=== PATIENT | male | born 1970 | race Two or more races ===

== ENCOUNTER 2016-05-15 14:10 | Emergency (ER) | payer OTHER ==
[2016-05-15] MEDS ORDERED: IBUPROFEN 600 MG TABLET (FP) PO ONE ×2 (14:32→14:34)
--- NOTE | 2016-05-15 14:34 | PDOC ---
History of Present Illness - General History Source: Patient Exam Limitations: No Limitations - History of Present Illness Initial Comments: 05/15/16 14:35 The patient is a 45 year old obese male, with a significant past medical history of HTN, HLD, diabetes, thyroid cancer s/p remission, CAD s/p stent, chronic back pain, and castleman disease, who presents to the emergency department with intermittent cough and chest pain. The patient reports coughing and as a result having pain in his right flank area and left chest area. He reports today while coughing feeling a pop sensation come from his chest. He denies fever, chills, headache and dizziness. He denies any injury or trauma to his chest area. Allergies: NKDA Social History: Nonsmoker. Denies EtOH and drug use. PCP: <Juan Carlos Mazariegos - Last Filed: 05/15/16 17:32> <Abdoulaye Wahl - Last Filed: 05/15/16 17:36> - General Chief Complaint: Pain Stated Complaint: ABDOMINAL PAIN Time Seen by Provider: 05/15/16 14:19 Past History <Juan Carlos Mazariegos - Last Filed: 05/15/16 17:32> - Past Medical History Anemia: No Asthma: No Cancer: Yes (THYROID) Cardiac Disorders: Yes (STENT X1) CVA: No COPD: No CHF: No Dementia: No Diabetes: Yes GI Disorders: Yes (GERD) Disorders: No HTN: Yes Hypercholesterolemia: Yes Liver Disease: No Seizures: No Thyroid Disease: Yes (THYROIDECTOMY) - Surgical History Abdominal Surgery: No Appendectomy: No Cardiac Surgery: Yes (STENT X1) Cholecystectomy: No Lung Surgery: Yes Neurologic Surgery: No Orthopedic Surgery: Yes (LEFT ROTATOR CUFF REPAIR 2002) - Immunization History Immunization Up to Date: Yes - Psycho/Social/Smoking Cessation Hx Anxiety: Yes Suicidal Ideation: No Smoking Status: No Smoking History: Never smoked Have you smoked in the past 12 months: No Number of Cigarettes Smoked Daily: 0 Hx Alcohol Use: No Drug/Substance Use Hx: No Substance Use Type: None Hx Substance Use Treatment: No <Abdoulaye Wahl - Last Filed: 05/15/16 17:36> - Past Medical History Allergies/Adverse Reactions: Allergies Allergy/AdvReac Type Severity Reaction Status Date / Time green pepper Allergy Severe Difficulty Verified 10/21/15 22:41 Breathing No Known Drug Allergies Allergy Unknown Verified 10/21/15 22:29 PEPPER Allergy Uncoded 10/21/15 22:41 Home Medications: Ambulatory Orders Levothyroxine [Synthroid -] 300 mcg PO DAILY 08/21/14 Aspirin [Aspirin EC] 81 mg PO DAILY 12/30/14 Oxycodone HCl/Acetaminophen [Percocet 10-325 mg Tablet] 1 - 2 tab PO Q6H Alprazolam [Xanax] 1 mg PO PRN PRN 09/27/15 Olmesartan Medoxomil [Benicar -] 20 mg PO HS 09/27/15 Oxycodone HCl [Roxicodone -] 10 mg PO Q4H PRN #7 tablet MDD 4 10/23/15 Lidocaine 5% Patch [Lidoderm -] 1 patch TP DAILY PRN 05/15/16 Review of Systems - Review of Systems Able to Perform ROS?: Yes Constitutional: No: Symptoms Reported, Chills, Fever HEENTM: No: Symptoms Reported, Eye Pain, Blurred Vision, Ear Discharge, Throat Pain Respiratory: Yes: Cough Cardiac (ROS): Yes: Chest Pain (Left and right sided) ABD/GI: No: Constipated, Diarrhea, Nausea, Vomiting : No: Dysuria, Frequency, Urgency Musculoskeletal: No: Back Pain, Joint Pain, Joint Swelling, Muscle Pain, Neck Pain Neurological: No: Headache, Numbness, Tingling, Weakness Psychiatric: No: Anxiety, Depression <Juan Carlos Mazariegos - Last Filed: 05/15/16 17:32> *Physical Exam - Vital Signs Last Vital Signs Temp Pulse Resp BP Pulse Ox 98.8 F 102 H 20 131/78 96 05/15/16 14:16 05/15/16 14:16 05/15/16 14:16 05/15/16 14:16 05/15/16 14:16 - Physical Exam General Appearance: Yes: Nourished, Appropriately Dressed HEENT: positive: EOMI, JOLIE, Normal ENT Inspection, Normal Voice, Symmetrical, TMs Normal, Pharynx Normal Neck: positive: Supple. 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 PA and lateral projections of the chest are submitted. The heart size is slightly enlarged. There are surgical clips overlying the left heart border. There is elevation of the left hemidiaphragm with consolidation/ atelectasis within the left lower lobe. The right lung is clear. IMPRESSION: Cardiomegaly and left basilar atelectasis <Juan Carlos Mazariegos - Last Filed: 05/15/16 17:32> Medical Decision Making - Medical Decision Making 05/15/16 17:32 Patient is doing much better after Toradol, will follow up with PCP and discharged home with a chest wall strain. <Juan Carlos Mazariegos - Last Filed: 05/15/16 17:32> *DC/Admit/Observation/Transfer - Attestations Scribe Attestion: 05/15/16 14:37 Documentation prepared by Juan Carlos Mazariegos, acting as medical biller for Abdoulaye Wahl MD. <Juan Carlos Mazariegos - Last Filed: 05/15/16 17:32> - Discharge Dispostion Admit: No <Abdoulaye Wahl - Last Filed: 05/15/16 17:36> Diagnosis at time of Disposition: Rib pain on right side, Rib pain on left side - Discharge Dispostion Disposition: HOME Condition at time of disposition: Improved - Referrals Referrals: Nicolas Reece MD [Primary Care Provider] - - Patient Instructions Printed Discharge Instructions: DI for Rib Contusion
[2016-05-15 14:36] VITALS: TEMP 98.8; BMI 48.7
[2016-05-15 14:41] VITALS: BP 111/60; PULSE 92
[2016-05-15] MEDS ORDERED: KETOROLAC TROMETHAMINE 60 MG/2 ML VIAL ONE (17:29)
[2016-05-15] MEDS ORDERED: KETOROLAC TROMETHAMINE 60 MG/2 ML VIAL IM ONE (17:30)
== END 2016-05-15 18:09 | disposition home or self-care (01) ==
LOC: FER 14:10
PROC: 3E0233Z Introduction of Anti-inflammatory into Muscle, Percutaneous Approach (ICD-10-PCS; principal; 2016-05-15)
DX: R07.81 Pleurodynia (principal); Z85.850 Personal history of malignant neoplasm of thyroid; Z95.5 Presence of coronary angioplasty implant and graft; E11.9 Type 2 diabetes mellitus without complications; E78.00 Pure hypercholesterolemia, unspecified; I10 Essential (primary) hypertension; Z79.82 Long term (current) use of aspirin; E66.9 Obesity, unspecified; Z68.42 Body mass index [BMI] 45.0-49.9, adult
CPT/HCPCS: 71020-TC; 99283-25

== ENCOUNTER 2016-07-25 19:06 | Emergency (ER) | payer OTHER ==
--- NOTE | 2016-07-25 19:15 | PDOC ---
History of Present Illness - History of Present Illness Initial Comments: 07/25/16 20:34 Patient is a 45 year old male who is presenting to the ED with one week of cough and thirty minutes of abdominal pain. The patient reports that hes been coughing for the past week with some sputum production and shortness of breath. His sputum is yellow and occasionally contains specs of blood. The patient states that his cough and shortness of breath worsen with lying down. The patient has to sleep upright at night; he endorses a history of sleep apnea as well. Today when the patient was coughing, he saw his stomach move in a downwards fashion and developed left sided abdominal pain. The patient reports that his pain is constant and severe. He notes experiencing the pain along the right side at times too. However his pain is otherwise non-radiating. Denies any fever , chills, nausea, vomiting, diarrhea, constipation, chest pain, or difficulty urinating. The patient is non compliant with his medications. PAST MEDICAL HISTORY: hypothyroidism, thyroid CA s/p thyroidectomy, CAD s/p stent x1, HTN, HLD PAST SURGICAL HISTORY: thyroidectomy, stent x1, left rotator cuff surgery FAMILY HISTORY: no pertinent history SOCIAL HISTORY: Pt lives with family and is employed. MEDICATIONS: reviewed ALLERGIES: As per nursing notes General: No fevers or chills, no weakness, no weight loss HEENT: No change in vision. No sore throat,. No ear pain CardioVascular: Shortness of breath. No chest pain Respiratory: Productive cough. No wheezing. Gastrointestinal: Abdominal pain. no nausea, vomiting, diarrhea or constipation , No rectal bleeding Genitourinary: No dysuria, hematuria, or frequency Musculoskeletal: No joint or muscle pain or swelling Neurologic: No headache, vertigo, dizziness or loss of consciousness Psychiatric: nor depression Skin: No rashes or easy bruising Endocrine: no increased thirst or abnormal weight change Allergic: no skin or latex allergy All other systems reviewed and normal General: Morbidly obese, in mild distress HEENT: Throat: Normal, tonsils normal, no erythema or exudate Neck: Supple, no meningeal signs, no lymphadenopathy Eyes::Pupils equal reactive and round, extraocular motion intact Chest: Nontender to palpation Cardiac: S1-S2 normal, regular rate and rhythm, no murmurs rubs or gallops Respiratory: Lungs clear to auscultation bilateral Abdomen: Soft, tenderness on palpation left lower rib upper abdominal area, no guarding, no rebound Extremities: Warm, dry, no cyanosis, clubbing, or edema Skin: No rashes Neuro: Alert and oriented x3, nonfocal exam, grossly intact, normal gait Psych: Normal mood and affect <Alma Lozano - Last Filed: 07/25/16 21:38> - General History Source: Patient Exam Limitations: No Limitations - History of Present Illness Initial Comments: 07/25/16 22:15 A portion of this note was documented by scribe services under my direction. I have reviewed the details of the note, within reason, and agree with the documentation. The case summary and management plan written by me. Assessment and plan: This is a 45-year-old male comes in complaining of upper abdominal/left upper quadrant and the left-sided the lower rib pain. Patient said symptoms began after coughing. Patient has multiple medical problems including diabetes and is morbidly obese. Patient had a complete workup including chest x-ray EKG labs that included d-dimer and BNP as well as abdominal x-ray. EKG showed normal sinus rhythm at a rate of 92, no acute ST-T wave changes normal EKG. Chest x-ray showed a large gastric bubble with a markedly elevated left hemidiaphragm secondary to the large gastric bubble. Otherwise no acute pathology. Abdomen showed a nonobstructive bowel gas pattern, and no acute pathology Patient's blood work was unremarkable including a negative troponin, normal BNP , and negative d-dimer. Patient was given some antacids with much improvement in his symptoms and fell asleep and slept comfortably in tell his blood work was back and he was then discharged home. Patient was given instructions to follow-up with his primary care doctor as well as some suggestions as to how to reduce gastric distention and gas. <Will Mae I - Last Filed: 07/25/16 22:19> - General Chief Complaint: Pain Stated Complaint: LUQ PAIN AFTER COUGHING Time Seen by Provider: 07/25/16 19:15 Past History <Alma Lozano - Last Filed: 07/25/16 21:38> - Past Medical History Anemia: No Asthma: No Cancer: Yes (THYROID) Cardiac Disorders: Yes (STENT X1) CVA: No COPD: No CHF: No Dementia: No Diabetes: Yes GI Disorders: Yes (GERD) Disorders: No HTN: Yes Hypercholesterolemia: Yes Liver Disease: No Seizures: No Thyroid Disease: Yes (THYROIDECTOMY) - Surgical History Abdominal Surgery: No Appendectomy: No Cardiac Surgery: Yes (STENT X1) Cholecystectomy: No Lung Surgery: Yes Neurologic Surgery: No Orthopedic Surgery: Yes (LEFT ROTATOR CUFF REPAIR 2002) - Immunization History Immunization Up to Date: Yes - Psycho/Social/Smoking Cessation Hx Anxiety: Yes Suicidal Ideation: No Smoking Status: No Smoking History: Never smoked Have you smoked in the past 12 months: No Number of Cigarettes Smoked Daily: 0 Hx Alcohol Use: No Drug/Substance Use Hx: No Substance Use Type: None Hx Substance Use Treatment: No <Will Mae I - Last Filed: 07/25/16 22:19> - Past Medical History Allergies/Adverse Reactions: Allergies Allergy/AdvReac Type Severity Reaction Status Date / Time green pepper Allergy Severe Difficulty Verified 07/25/16 19:25 Breathing No Known Drug Allergies Allergy Unknown Verified 07/25/16 19:25 PEPPER Allergy Uncoded 07/25/16 19:25 Home Medications: Ambulatory Orders Levothyroxine [Synthroid -] 300 mcg PO DAILY 08/21/14 Aspirin [Aspirin EC] 81 mg PO DAILY 12/30/14 Alprazolam [Xanax] 1 mg PO PRN PRN 09/27/15 Olmesartan Medoxomil [Benicar -] 20 mg PO HS 09/27/15 Sitagliptin Phosphate [Januvia] 100 mg PO DAILY 07/25/16 *Physical Exam - Vital Signs Last Vital Signs Temp Pulse Resp BP Pulse Ox 99.8 F H 103 H 20 143/84 94 L 07/25/16 19:08 07/25/16 19:08 07/25/16 19:08 07/25/16 19:08 07/25/16 19:08 <Alma Lozano - Last Filed: 07/25/16 21:38> ED Treatment Course - LABORATORY CBC & Chemistry Diagram: 07/25/16 20:10 07/25/16 20:10 - ADDITIONAL ORDERS Additional order review: 07/25/16 20:10 RBC 4.95 MCV 83.3 MCHC 33.8 RDW 14.4 MPV 9.3 Neutrophils % 63.1 Lymphocytes % 22.8 Monocytes % 7.6 Eosinophils % 3.3 Basophils % 3.2 H - RADIOLOGY Radiograph Interpretation: 07/25/16 21:38 Abdomen X-Ray Impression: Suboptimal examination due to the patient's body habitus. Nonobstructive bowel gas pattern. Chest X-Ray Impression: Mild atelectatic changes in the left lung base and persistent prominence of the left hilum Reported By: Batr Manning MD <Alma Lozano - Last Filed: 07/25/16 21:38> - LABORATORY CBC & Chemistry Diagram: 07/25/16 20:10 07/25/16 20:10 <Will Mae I - Last Filed: 07/25/16 22:19> *DC/Admit/Observation/Transfer - Attestations Scribe Attestion: 07/25/16 20:39 Documentation prepared by Alma Lozano, acting as medical insurance collector for Will Mae MD. <Alma Lozano - Last Filed: 07/25/16 21:38> - Discharge Dispostion Admit: No <Will Mae I - Last Filed: 07/25/16 22:19> Diagnosis at time of Disposition: Stomach discomfort - Discharge Dispostion Disposition: HOME Condition at time of disposition: Good - Referrals Referrals: Nicolas Reece MD [Primary Care Provider] - - Patient Instructions Additional Instructions: Return to the emergency department immediately with ANY new, persistent or worsening symptoms. Continue any medications as previously prescribed by your physician. You should follow up with your primary doctor as soon as possible regarding today's emergency department visit. . Please make sure your doctor reviews the results of your emergency evaluation. Thank you for coming to the Emergency Department today for your care. It was a pleasure to see you today. Please note that your evaluation is INCOMPLETE until you follow-up with your doctor. Here are six steps you can take to cut down on painful gas: Drink before meals. If you drink liquids with your meals, you lose stomach acids and cant break down food as well, Alexis says. Try drinking about 30 minutes before a meal to help your stomach digest better. Eat and drink slowly. When you eat or drink fast, you can swallow a lot of air, which can cause gas. The simple solution? Slow down when you eat. If you have dentures, check with your dentist to be sure they fit properly so youre not gasping air while eating. Take [id number] digestive aids. Digestive enzymes are available as over- the-counter supplements. Go to the [employer] store and getting a digestive enzyme, You can take one or two. You will know very rapidly within a few weeks if it makes a difference. However, antacids wont do much for excessive gas. Another gvof-yyh-uahzyfb digestive aid, Beano, contains an enzyme that can allow the body to digest the sugar in beans and many vegetables. Add five drops of the liquid form or swallow one Beano tablet per half-cup serving of food before eating. Heating degrades the enzyme in Beano, so adding it to foods while cooking reduces its effectiveness. Beano will not help if excessive gas is caused by fiber or lactose. Try activated charcoal. Activated charcoal has been known to reduce and treat excess gas and bloating. Unlike the charcoal you find in your grill or fireplace , activated charcoal undergoes a special treatment that makes it safe for human consumption. Once you take activated charcoal (via liquid or pill), it attaches to fluid in your gut, reducing gas and bloating and creating firmer stools. Don't fill up on air. Habits like smoking, chewing gum, and drinking through a straw may cause your stomach to fill with air, leading to gas. Avoid artificial sweeteners. Sorbitol and related sugar alcohols used in many sugar-free versions of foods can also aggravate gas. Sorbitol is the first ingredient in every brand of sugar-free gum Lillian found at local grocery stores, says Alli. One to two sticks is rashi to eating a prune. However, the sugar substitutes that are found at a typical coffee stand or in popular soft drinks are not the kind that cause gas. The various packet sweeteners yellow ( sucralose), pink (saccharine), and blue (aspartame) are not associated with gas or laxative effects.
[2016-07-25 19:24] VITALS: BP 143/84; PULSE 103; TEMP 99.8; BMI 49.0
[2016-07-25 20:24] LABS: BASOPHIL 3.2 % (0-2.0); EOSINOPHIL 3.3 % (0-4.5); MCH 28.2 pg (25.7-33.7); MCHC 33.8 g/dl (32.0-35.9); MEAN CELL VOLUME 83.3 fl (80-96); MEAN PLT VOLUME 9.3 fl (7.5-11.1); NEUTROPHILS 63.1 % (42.8-82.8); PLATELET COUNT 204 K/MM3 (134-434); RDW 14.4 % (11.9-15.9); WHITE BLOOD COUNT 8.1 K/mm3 (4.0-10.0)
[2016-07-25] MEDS ORDERED: KETOROLAC TROMETHAMINE 30 MG/1 ML VIAL IVPUSH ONE (20:33)
[2016-07-25] MEDS ORDERED: MAG HYDROX/AL HYDROX/SIMETH 355 ML ORAL.SUSP PO ONE (20:34)
[2016-07-25] MEDS ORDERED: FAMOTIDINE 20 MG/50 ML IVPB 50 ML IVPB ONE ×2 (20:34→20:49)
[2016-07-25 20:35] LABS: ALBUMIN 3.6 g/dl (3.5-5.0); ALK PHOS 50 U/L (32-92); ANION GAP 6 (8-16); CALCIUM 8.8 mg/dl (8.4-10.2); CO2 28 mmol/L (22-28); COCKROFT - GAULT 227; CREATININE 0.9 mg/dl (0.6-1.3); GLUCOSE,RANDOM 182 mg/dl (74-106); SGOT/AST 44 U/L (10-42); SGPT/ALT 23 U/L (10-40); TOT PROT 7.1 g/dl (6.4-8.3)
[2016-07-25 20:42] LABS: CPK(DFH) 193 IU/L (38-174)
[2016-07-25] MEDS ORDERED: MAG HYDROX/AL HYDROX/SIMETH 30 ML UNIT-DOSE CUP ONE (20:49)
[2016-07-25] MEDS ORDERED: KETOROLAC TROMETHAMINE 30 MG/1 ML VIAL ONE (20:49)
[2016-07-25 20:51] LABS: TROPONIN I (DFP) < 0.03 ng/ml (0.03-0.50)
[2016-07-25 20:53] LABS: CK MB 3.6 ng/ml (0.3-4.0)
--- NOTE | 2016-07-28 09:10 | EKG ---
Test Reason : Blood Pressure : / mmHG Vent. Rate : 092 BPM Atrial Rate : 092 BPM P-R Int : 164 ms QRS Dur : 096 ms QT Int : 378 ms P-R-T Axes : 041 002 034 degrees QTc Int : 467 ms NORMAL SINUS RHYTHM NORMAL ECG WHEN COMPARED WITH ECG OF 22-OCT-2015 03:45, NO SIGNIFICANT CHANGE WAS FOUND Confirmed by ONUR COYNE MD ([id number]) on 07/28/2016 9:10:05 AM Referred By: Cedric CHAVIRA Confirmed By:ONUR COYNE MD
== END 2016-07-26 00:23 | disposition home or self-care (01) ==
LOC: FER 19:06
PROC: 3E033GC Introduction of Other Therapeutic Substance into Peripheral Vein, Percutaneous Approach (ICD-10-PCS; principal; 2016-07-25)
PROC: 3E0333Z Introduction of Anti-inflammatory into Peripheral Vein, Percutaneous Approach (ICD-10-PCS; 2016-07-25)
DX: R10.9 Unspecified abdominal pain (principal); E03.9 Hypothyroidism, unspecified; Z85.850 Personal history of malignant neoplasm of thyroid; Z95.5 Presence of coronary angioplasty implant and graft; I10 Essential (primary) hypertension; E78.5 Hyperlipidemia, unspecified; I25.10 Atherosclerotic heart disease of native coronary artery without angina pectoris
CPT/HCPCS: 36415; 71020-TC; 74020-TC; 80053; 82550; 82553; 83880; 84484; 85025; 85379; 93005; 96365; 96375; 99285-25

== ENCOUNTER 2016-09-02 08:36 | Emergency (ER) | payer OTHER ==
[2016-09-02 08:44] VITALS: BP 121/79; PULSE 94; TEMP 98.7; BMI 48.1
[2016-09-02] MEDS ORDERED: ACETAMINOPHEN 325 MG TABLET (FP) PO ONE (08:49)
[2016-09-02] MEDS ORDERED: SODIUM CHLORIDE 1,000 ML IV STA (08:49)
[2016-09-02] MEDS ORDERED: MAG HYDROX/AL HYDROX/SIMETH 30 ML UNIT-DOSE CUP PO ONE (08:49)
[2016-09-02] MEDS ORDERED: FAMOTIDINE 20 MG/50 ML IVPB 50 ML IVPB ONE ×2 (08:49→09:01)
[2016-09-02] MEDS ORDERED: ACETAMINOPHEN 325 MG TABLET (FP) ONE (09:01)
[2016-09-02] MEDS ORDERED: MAG HYDROX/AL HYDROX/SIMETH 30 ML UNIT-DOSE CUP ONE (09:01)
[2016-09-02 09:06] LABS: URINE APPEARANCE Clear; URINE BILIRUBIN Negative (NEGATIVE); URINE GLUCOSE (UA) Negative (NEGATIVE); URINE KETONE Negative (NEGATIVE); URINE LEUK ESTERASE Trace (NEGATIVE); URINE NITRITE Negative (NEGATIVE); URINE PROTEIN Negative (NEGATIVE); URINE UROBILINOGEN 0.2 E.U/dl (0.2-1.0)
[2016-09-02 09:16] LABS: URINE BLOOD 1+ (NEGATIVE); URINE COLOR YELLOW
--- NOTE | 2016-09-02 09:17 | PDOC ---
History of Present Illness - General Chief Complaint: Pain, Acute Stated Complaint: abd pain Time Seen by Provider: 09/02/16 08:39 History Source: Patient, Old Records Exam Limitations: No Limitations - History of Present Illness Initial Comments: 09/02/16 09:16 45 year old male with past medical history of hypothyroidism, thyroid cancer status post thyroidectomy, coronary disease status post stents, hypertension, hyperlipidemia, noncompliance with medications presents with right-sided abdominal pain. Patient reports that he woke up in his usual state and well. Patient reports that he was stretching out his abdomen when he felt the sudden onset of right-sided abdominal pain. No associated nausea, vomiting, diarrhea, fevers. Patient states that this had occurred several times in the last several months. He is here several months ago for similar incident and was found to have any gastric air bubble. Patient has not follow-up with her doctor regarding these abdominal complaints. Past History - Past Medical History Allergies/Adverse Reactions: Allergies Allergy/AdvReac Type Severity Reaction Status Date / Time green pepper Allergy Severe Difficulty Verified 09/02/16 08:38 Breathing No Known Drug Allergies Allergy Unknown Verified 09/02/16 08:38 PEPPER Allergy Uncoded 07/25/16 19:25 Home Medications: Ambulatory Orders Levothyroxine [Synthroid -] 300 mcg PO DAILY 08/21/14 Aspirin [Aspirin EC] 81 mg PO DAILY 12/30/14 Alprazolam [Xanax] 1 mg PO PRN PRN 09/27/15 Olmesartan Medoxomil [Benicar -] 20 mg PO HS 09/27/15 Sitagliptin Phosphate [Januvia] 100 mg PO DAILY 07/25/16 Ciprofloxacin [Cipro -] 500 mg PO Q12H #14 tablet 09/02/16 Clotrimazole/Betamethasone Dip [Clotrimazole-Betamethasone Lot] 30 ml TP BID #1 lotion 09/02/16 Famotidine [Pepcid] 20 mg PO BID PRN #14 tablet 09/02/16 Mag Hydrox/Al Hydrox/Simeth [Mylanta Suspension -] 30 ml PO Q6H PRN #1 bottle Anemia: No Asthma: No Cancer: Yes (THYROID) Cardiac Disorders: Yes (STENT X1) CVA: No COPD: No CHF: No Dementia: No Diabetes: Yes GI Disorders: Yes (GERD) Disorders: No HTN: Yes Hypercholesterolemia: Yes Liver Disease: No Seizures: No Thyroid Disease: Yes (THYROIDECTOMY) - Surgical History Abdominal Surgery: No Appendectomy: No Cardiac Surgery: Yes (STENT X1) Cholecystectomy: No Lung Surgery: Yes Neurologic Surgery: No Orthopedic Surgery: Yes (LEFT ROTATOR CUFF REPAIR 2002) - Immunization History Immunization Up to Date: Yes - Psycho/Social/Smoking Cessation Hx Anxiety: Yes Suicidal Ideation: No Smoking Status: No Smoking History: Never smoked Have you smoked in the past 12 months: No Number of Cigarettes Smoked Daily: 0 Hx Alcohol Use: No Drug/Substance Use Hx: No Substance Use Type: None Hx Substance Use Treatment: No Review of Systems - Review of Systems Able to Perform ROS?: Yes Comments:: 09/02/16 09:16 GENERAL/CONSTITUTIONAL: No fever, weakness. HEAD, EYES, EARS, NOSE AND THROAT: No change in vision. No ear pain or discharge. No sore throat. CARDIOVASCULAR: No chest pain or shortness of breath. RESPIRATORY: No cough, wheezing, or hemoptysis. GASTROINTESTINAL: +abdominal pain. No nausea, vomiting, diarrhea, or decreased PO intolerance. GENITOURINARY: No dysuria, frequency, or change in urination. MUSCULOSKELETAL: No joint or muscle swelling or pain. No neck or back pain. SKIN: No rash NEUROLOGIC: No headache, vertigo, loss of consciousness, or change in strength/ sensation. ENDOCRINE: No increased thirst. No abnormal weight change. HEMATOLOGIC/LYMPHATIC: No anemia, easy bleeding, or history of blood clots. ALLERGIC/IMMUNOLOGIC: No hives or skin allergy. *Physical Exam - Vital Signs Last Vital Signs Temp Pulse Resp BP Pulse Ox 98.7 F 94 H 18 121/79 95 09/02/16 08:37 09/02/16 08:37 09/02/16 08:37 09/02/16 08:37 09/02/16 08:37 - Physical Exam Comments: 09/02/16 09:16 GENERAL: Awake, alert, and fully oriented, in no acute distress. Obese. HEAD: No signs of trauma EYES: PERRLA, EOMI, sclera anicteric, conjunctiva clear ENT: Auricles normal inspection, hearing grossly normal, nares patent, oropharynx clear without exudates. NECK: Normal ROM, supple, no lymphadenopathy, JVD, or masses LUNGS: Breath sounds equal, clear to auscultation bilaterally. No wheezes, and no crackles HEART: Regular rate and rhythm, normal S1 and S2, no murmurs, rubs or gallops ABDOMEN: Negative chavez. Negative mcburney's. TTP mid right abdomen to palpation. Soft, normoactive bowel sounds. No guarding, no rebound. No masses EXTREMITIES: Normal range of motion, no edema. No clubbing or cyanosis. No cords, erythema, or tenderness NEUROLOGICAL: Cranial nerves II through XII grossly intact. Normal speech, normal gait SKIN: Warm, Dry, normal turgor, no rashes or lesions noted. Heart Score/ECG Review #1 ECG reviewed & interpreted by me at: 09:20 09/02/16 09:32 NSR 85, no std/kj, normal axis, normal intervals, QTC 459 msec ED Treatment Course - LABORATORY CBC & Chemistry Diagram: 09/02/16 09:06 09/02/16 09:06 - RADIOLOGY Radiology Studies Ordered: Category Date Time Status ABDOMEN & PELVIS CT WITH CONTR [CT] Stat CT Scan 09/02/16 08:49 Ordered - Medications Given in the ED: ED Medications Discontinued Medications Generic Name Dose Route Start Last Admin Trade Name Freq PRN Reason Stop Dose Admin Acetaminophen 650 mg 09/02/16 08:49 09/02/16 09:12 Tylenol - PO 09/02/16 08:50 650 mg ONCE ONE Administration Al Hydroxide/Mg Hydroxide 30 ml 09/02/16 08:49 09/02/16 09:12 Mylanta Oral Suspension - PO 09/02/16 08:50 30 ml ONCE ONE Administration Medical Decision Making - Medical Decision Making 09/02/16 09:16 Vital Signs Temp Pulse Resp BP Pulse Ox 98.7 F 94 H 18 121/79 95 09/02/16 08:37 09/02/16 08:37 09/02/16 08:37 09/02/16 08:37 09/02/16 08:37 Differential includes gastric bubble, hiatal hernia, abdominal hernia, versus less likely appendicitis. We'll obtain labs, CAT scan the abdomen pelvis and trial GERD medications reassess. 09/02/16 11:27 CAT scan demonstrates stable exam without gross interval changes. Hepatosplenomegaly with fatty infiltration of liver. Prominent primary pancreatic lymph nodes again with no gross interval changes. CBC, BMP 09/02/16 09:06 09/02/16 09:06 CMP Sodium 134 mmol/L (136-145) L 09/02/16 09:06 Potassium 4.0 mmol/L (3.5-5.1) 09/02/16 09:06 Chloride 94 mmol/L (98-107) L 09/02/16 09:06 Carbon Dioxide 29 mmol/L (22-28) H 09/02/16 09:06 Anion Gap 11 (8-16) 09/02/16 09:06 BUN 16 mg/dl (7-18) 09/02/16 09:06 Creatinine 1.0 mg/dl (0.6-1.3) 09/02/16 09:06 Creat Clearance w eGFR > 60 (>60) 09/02/16 09:06 Random Glucose 264 mg/dl (74-106) H D 09/02/16 09:06 Calcium 9.1 mg/dl (8.4-10.2) 09/02/16 09:06 Total Bilirubin 0.6 mg/dl (0.2-1.0) D 09/02/16 09:06 AST 26 U/L (10-42) D 09/02/16 09:06 ALT 27 U/L (10-40) 09/02/16 09:06 Alkaline Phosphatase 61 U/L (32-92) D 09/02/16 09:06 Creatine Kinase 130 IU/L (38-174) 09/02/16 09:06 Troponin I < 0.03 ng/ml (0.03-0.50) L 09/02/16 09:06 Total Protein 7.5 g/dl (6.4-8.3) 09/02/16 09:06 Albumin 4.0 g/dl (3.5-5.0) 09/02/16 09:06 Lipase 27 U/L (22-51) 09/02/16 09:06 Urine Test Results Urine Color Yellow 09/02/16 09:00 Urine Appearance Clear 09/02/16 09:00 Urine pH 5.0 (4.5-8) D 09/02/16 09:00 Ur Specific [place] 1.020 (1.005-1.025) 09/02/16 09:00 Urine Protein Negative (NEGATIVE) 09/02/16 09:00 Urine Glucose (UA) Negative (NEGATIVE) 09/02/16 09:00 Urine Ketones Negative (NEGATIVE) 09/02/16 09:00 Urine Blood 1+ (NEGATIVE) H 09/02/16 09:00 Urine Nitrite Negative (NEGATIVE) 09/02/16 09:00 Urine Bilirubin Negative (NEGATIVE) 09/02/16 09:00 Ur Leukocyte Esterase Trace (NEGATIVE) 09/02/16 09:00 Urine RBC 3-5 /hpf (0-3) 09/02/16 09:00 Urine WBC 10-20 (3-5) 09/02/16 09:00 Ur Epithelial Cells 2+ /HPF 09/02/16 09:00 Urine Bacteria 1+ /hpf (NEGATIVE) 09/02/16 09:00 The patient has been having intermittent recurrence of abdominal pain over several months which is now relieved by Mylanta and Pepcid. It is possible this is likely gastritis despite the fact this is right mid abdominal pain. We'll give her prescription of those 2 medications. The CAT scan demonstrates prominent lymph nodes which he reports the patient and the patient's doctor is aware of. I had given a copy of the results to the patient. Urine demonstrates 10-20 to BCs and trace leuk esterase and 1+ bacteria. We'll also prescribe ciprofloxacin and have the patient follow up with his doctor. Patient also notes to me that he has a small tinea-like rash along the right side of neck. We 'll prescribe an antifungal and steroid ointment and have the patient follow with his doctor. Patient verbalizes understanding and agrees with plan. I discussed the physical exam findings, ancillary test results and final diagnoses with the patient. I answered all of the patient's questions. The patient was satisfied with the care received and felt comfortable with the discharge plan and treatment plan. The patient will call their primary care physician within 24 hours to arrange follow-up and will return to the Emergency Department with any new, persistant or worsening symptoms. *DC/Admit/Observation/Transfer Diagnosis at time of Disposition: Gastritis Qualifiers: Gastritis type: unspecified gastritis Chronicity: acute Gastritis bleeding: without bleeding Qualified Code(s): K29.00 - Acute gastritis without bleeding UTI (urinary tract infection) Qualifiers: Urinary tract infection type: site unspecified Hematuria presence: without hematuria Qualified Code(s): N39.0 - Urinary tract infection, site not specified - Discharge Dispostion Disposition: HOME Condition at time of disposition: Improved Admit: No - Prescriptions Prescriptions: Ciprofloxacin [Cipro -] 500 mg PO Q12H #14 tablet Clotrimazole/Betamethasone Dip [Clotrimazole-Betamethasone Lot] 30 ml TP BID #1 lotion Mag Hydrox/Al Hydrox/Simeth [Mylanta Suspension -] 30 ml PO Q6H PRN #1 bottle PRN Reason: Abdominal Pain Famotidine [Pepcid] 20 mg PO BID PRN #14 tablet PRN Reason: GERD - Referrals Referrals: Nicolas Reece MD [Primary Care Provider] - Gómez Solis MD [Staff Physician] - Sly Ward MD [Staff Physician] - - Patient Instructions Printed Discharge Instructions: DI for Gastritis, DI for Urinary Tract Infection (UTI), DI for Rash Additional Instructions: Please take the medications as prescribed. Please complete them. Your urine demonstrated a urinary tract infection. Also, CAT scan also shows again an enlarged spleen and liver and lymph nodes that has been there since 2015. It is important that you bring a copy of the CAT scan results to and to touch base with him. Please also apply the ointment to your rash every 12 hours for 1 week and follow up with your doctor. If you are having recurrence of this abdominal pain, please make an appointment with an recording clerk.
[2016-09-02 09:28] LABS: BASOPHIL 2.7 % (0-2.0); EOSINOPHIL 1.3 % (0-4.5); MCH 28.6 pg (25.7-33.7); MCHC 34.4 g/dl (32.0-35.9); MEAN CELL VOLUME 83.1 fl (80-96); MEAN PLT VOLUME 9.7 fl (7.5-11.1); NEUTROPHILS 79.6 % (42.8-82.8); PLATELET COUNT 236 K/MM3 (134-434); RDW 14.8 % (11.9-15.9); WHITE BLOOD COUNT 10.5 K/mm3 (4.0-10.8)
[2016-09-02 09:32] LABS: URINE BACTERIA 1+ /hpf (NEGATIVE)
[2016-09-02 09:47] LABS: ALK PHOS 61 U/L (32-92); ANION GAP 11 (8-16); BILIRUBIN,TOTAL 0.6 mg/dl (0.2-1.0); CALCIUM 9.1 mg/dl (8.4-10.2); CO2 29 mmol/L (22-28); GLUCOSE,RANDOM 264 mg/dl (74-106); SGOT/AST 26 U/L (10-42); SGPT/ALT 27 U/L (10-40); TOT PROT 7.5 g/dl (6.4-8.3)
[2016-09-02 09:49] LABS: COCKROFT - GAULT NT
[2016-09-02] MEDS ORDERED: CIPROFLOXACIN 500 MG TABLET (RESTRICTED TO ID) PO ONE (11:26)
[2016-09-02] MEDS ORDERED: CIPROFLOXACIN 250 MG TABLET (RESTRICTED TO ID) PO ONE (11:30)
[2016-09-02 14:51] LABS: CPK(DFH) 130 IU/L (38-174); TROPONIN I (DFP) < 0.03 ng/ml (0.03-0.50)
--- NOTE | 2016-09-02 17:15 | EKG ---
Test Reason : Blood Pressure : / mmHG Vent. Rate : 085 BPM Atrial Rate : 085 BPM P-R Int : 128 ms QRS Dur : 086 ms QT Int : 386 ms P-R-T Axes : 013 -04 058 degrees QTc Int : 459 ms NORMAL SINUS RHYTHM NORMAL ECG WHEN COMPARED WITH ECG OF 25-JUL-2016 19:47, NO SIGNIFICANT CHANGE WAS FOUND Confirmed by MEGHANA HAMPTON MD ([id number]) on 09/02/2016 5:15:27 PM Referred By: MARY CALHOUN Confirmed By:MEGHANA HAMPTON MD
== END 2016-09-02 11:38 | disposition home or self-care (01) ==
LOC: FER 08:36
PROC: 3E033GC Introduction of Other Therapeutic Substance into Peripheral Vein, Percutaneous Approach (ICD-10-PCS; principal; 2016-09-02)
PROC: 3E0337Z Introduction of Electrolytic and Water Balance Substance into Peripheral Vein, Percutaneous Approach (ICD-10-PCS; 2016-09-02)
DX: K29.00 Acute gastritis without bleeding (principal); N39.0 Urinary tract infection, site not specified; E03.9 Hypothyroidism, unspecified; E78.5 Hyperlipidemia, unspecified; Z95.5 Presence of coronary angioplasty implant and graft; K21.9 Gastro-esophageal reflux disease without esophagitis
CPT/HCPCS: 36415; 74177-TC; 80053; 81003; 81015; 82550; 83690; 84484; 85025; 87086; 87186; 93005; 96361; 96365; 99283-25

== ENCOUNTER 2016-11-17 13:53 | Emergency (ER) | payer OTHER ==
[2016-11-17 14:07] VITALS: BP 109/69; PULSE 81; TEMP 98.2; BMI 48.1
--- NOTE | 2016-11-17 14:35 | PDOC ---
History of Present Illness - General Chief Complaint: Pain Stated Complaint: COUGHED NOW HAVE ABD PAIN Time Seen by Provider: 11/17/16 14:34 History Source: Patient Exam Limitations: No Limitations - History of Present Illness Initial Comments: 11/17/16 14:50 45 yo male presents with abdominal pain since this morning. Patient past medical history of hypothyroidism, thyroid cancer status post thyroidectomy, coronary disease status post stents, hypertension, hyperlipidemia, noncompliance with medications. He states that he coughed this morning when all of a sudden he felt pain in his right lower abdomen. Patient states that he feels as if his "stomach dropped". He reports that movements hurts and staying still makes it better. He did not take any medication for his pain. Patient denies any fever , chills, chest pain, SOB, n/v/d Past History - Past Medical History Allergies/Adverse Reactions: Allergies Allergy/AdvReac Type Severity Reaction Status Date / Time green pepper Allergy Severe Difficulty Verified 11/17/16 13:55 Breathing No Known Drug Allergies Allergy Unknown Verified 11/17/16 13:55 PEPPER Allergy Uncoded 11/17/16 13:55 Home Medications: Ambulatory Orders Levothyroxine [Synthroid -] 300 mcg PO DAILY 08/21/14 Aspirin [Aspirin EC] 81 mg PO DAILY 12/30/14 Alprazolam [Xanax] 1 mg PO PRN PRN 09/27/15 Olmesartan Medoxomil [Benicar -] 20 mg PO HS 09/27/15 Sitagliptin Phosphate [Januvia] 100 mg PO DAILY 07/25/16 Clotrimazole/Betamethasone Dip [Clotrimazole-Betamethasone Lot] 30 ml TP BID #1 lotion 09/02/16 Famotidine [Pepcid] 20 mg PO BID PRN #14 tablet 09/02/16 Mag Hydrox/Al Hydrox/Simeth [Mylanta Suspension -] 30 ml PO Q6H PRN #1 bottle Oxycodone HCl/Acetaminophen [Percocet 10-325 mg Tablet] 1 each PO PRN PRN Tramadol HCl 50 mg PO PRN PRN 11/17/16 Anemia: No Asthma: No Cancer: Yes (THYROID) Cardiac Disorders: Yes (STENT X1) CVA: No COPD: No CHF: No Dementia: No Diabetes: Yes GI Disorders: Yes (GERD) Disorders: No HTN: Yes Hypercholesterolemia: Yes Liver Disease: No Seizures: No Thyroid Disease: Yes (THYROIDECTOMY) - Surgical History Abdominal Surgery: No Appendectomy: No Cardiac Surgery: Yes (STENT X1) Cholecystectomy: No Lung Surgery: Yes Neurologic Surgery: No Orthopedic Surgery: Yes (LEFT ROTATOR CUFF REPAIR 2002) - Immunization History Immunization Up to Date: Yes - Psycho/Social/Smoking Cessation Hx Anxiety: Yes Suicidal Ideation: No Smoking Status: No Smoking History: Never smoked Have you smoked in the past 12 months: No Number of Cigarettes Smoked Daily: 0 Information on smoking cessation initiated: No Hx Alcohol Use: No Drug/Substance Use Hx: No Substance Use Type: None Hx Substance Use Treatment: No Review of Systems - Review of Systems Constitutional: No: Chills, Fever HEENTM: No: Blurred Vision, Double Vision Respiratory: No: Cough, Shortness of Breath ABD/GI: Yes: Abdominal cramping Musculoskeletal: No: Back Pain, Muscle Weakness Integumentary: No: Bruising Neurological: No: Headache Psychiatric: No: Depression All Other Systems: Reviewed and Negative *Physical Exam - Vital Signs Last Vital Signs Temp Pulse Resp BP Pulse Ox 98.2 F 81 20 109/69 94 L 11/17/16 13:55 11/17/16 13:55 11/17/16 13:55 11/17/16 13:55 11/17/16 13:55 - Physical Exam General Appearance: Yes: Nourished, Appropriately Dressed HEENT: positive: EOMI, JOLIE, Normal ENT Inspection Neck: positive: Trachea midline, Supple Respiratory/Chest: positive: Lungs Clear, Normal Breath Sounds. negative: Crackles, Rales, Rhonchi, Stridor, Wheezing Cardiovascular: positive: Regular Rhythm, Regular Rate Gastrointestinal/Abdominal: positive: Normal Bowel Sounds, Other. 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 NML intact, Fully Oriented, Alert, Normal Response, Motor Strength 5/5 Medical Decision Making - Medical Decision Making 11/17/16 15:02 45 yo M with abdominal pain since this AM Patient with similar complaints in the past with unremarkable to CT findings IV Tordol and Bentyl for pain Reasses *DC/Admit/Observation/Transfer Diagnosis at time of Disposition: Abdominal pain in male, Obesity - Discharge Dispostion Disposition: HOME Condition at time of disposition: Good Admit: No - Patient Instructions Printed Discharge Instructions: DI for Cough -- Adult, DI for Abdominal Pain- Adult Additional Instructions: [place]- Your exam does not indicate a hernia. I believe you just strained your abdominal muscles while you were coughing. You should consider trying to lose a few pounds as this weight is really not good for your overall health or wellbeing. Talk with your doctor about what you can do. Return to us if any problems. Best- Dr. Boaz Emerson
[2016-11-17] MEDS ORDERED: KETOROLAC TROMETHAMINE 60 MG/2 ML VIAL IM ONE (15:08)
[2016-11-17] MEDS ORDERED: DICYCLOMINE HCL 20 MG/2 ML AMPUL IM ONE (15:08)
[2016-11-17] MEDS ORDERED: DICYCLOMINE HCL 10 MG CAPSULE ONE (15:27)
[2016-11-17] MEDS ORDERED: KETOROLAC TROMETHAMINE 60 MG/2 ML VIAL ONE (15:27)
== END 2016-11-17 15:49 | disposition home or self-care (01) ==
LOC: FER 13:53
PROC: 3E0133Z Introduction of Anti-inflammatory into Subcutaneous Tissue, Percutaneous Approach (ICD-10-PCS; principal; 2016-11-17)
PROC: 3E013GC Introduction of Other Therapeutic Substance into Subcutaneous Tissue, Percutaneous Approach (ICD-10-PCS; 2016-11-17)
DX: R10.9 Unspecified abdominal pain (principal); E89.0 Postprocedural hypothyroidism; Z85.850 Personal history of malignant neoplasm of thyroid; Z79.82 Long term (current) use of aspirin; I10 Essential (primary) hypertension; I25.10 Atherosclerotic heart disease of native coronary artery without angina pectoris; Z95.5 Presence of coronary angioplasty implant and graft; E78.5 Hyperlipidemia, unspecified; Z91.14 Patient's other noncompliance with medication regimen; Z91.018 Allergy to other foods; E66.9 Obesity, unspecified; Z68.42 Body mass index [BMI] 45.0-49.9, adult
CPT/HCPCS: 96372; 99283-25

== ENCOUNTER 2017-01-23 01:02 | Emergency (ER) | payer OTHER ==
--- NOTE | 2017-01-23 01:18 | PDOC ---
History of Present Illness - General History Source: Patient Exam Limitations: No Limitations - History of Present Illness Initial Comments: 01/23/17 01:53 The patient is a 46 year old male with a significant PMH of HTN, DM, and thyroid CA who presents to the emergency department with a persistent cough beginning approximately 2 days ago. The patient notes occasional productive clear/yellow sputum and reports associated shortness of breath with his cough. The patient denies any sick contacts or recent travel. The patient is compliant with his medications. The patient denies chest pain, headache and dizziness. Denies fever, chills, nausea, vomit, diarrhea and constipation. Denies dysuria, frequency, urgency and hematuria. Allergies: NKDA Past surgical history: Stent x1. Left rotator cuff repair (2002). Social history: No reported cigarette, alcohol, or drug use. PCP: None reported. <Jon Peralta - Last Filed: 01/23/17 01:56> - General History Source: Patient <Js Gimenez - Last Filed: 01/23/17 02:33> - General Stated Complaint: COUGH/DIFFICULTY BREATHING Time Seen by Provider: 01/23/17 01:16 Past History <Jon Peralta - Last Filed: 01/23/17 01:56> - Past Medical History Anemia: No Asthma: No Cancer: Yes (THYROID) Cardiac Disorders: Yes (STENT X1) CVA: No COPD: No CHF: No Dementia: No Diabetes: Yes GI Disorders: Yes (GERD) Disorders: No HTN: Yes Hypercholesterolemia: Yes Liver Disease: No Seizures: No Thyroid Disease: Yes (THYROIDECTOMY) - Surgical History Abdominal Surgery: No Appendectomy: No Cardiac Surgery: Yes (STENT X1) Cholecystectomy: No Lung Surgery: Yes Neurologic Surgery: No Orthopedic Surgery: Yes (LEFT ROTATOR CUFF REPAIR 2002) - Immunization History Immunization Up to Date: Yes - Suicide/Smoking/Psychosocial Hx Smoking Status: No Smoking History: Never smoked Have you smoked in the past 12 months: No Number of Cigarettes Smoked Daily: 0 Hx Alcohol Use: No Drug/Substance Use Hx: No Substance Use Type: None Hx Substance Use Treatment: No <Js Gimenez - Last Filed: 01/23/17 02:33> - Past Medical History Allergies/Adverse Reactions: Allergies Allergy/AdvReac Type Severity Reaction Status Date / Time green pepper Allergy Severe Difficulty Verified 01/23/17 01:19 Breathing No Known Drug Allergies Allergy Unknown Verified 01/23/17 01:19 PEPPER Allergy Uncoded 01/23/17 01:19 Home Medications: Ambulatory Orders Levothyroxine [Synthroid -] 300 mcg PO DAILY 08/21/14 Aspirin [Aspirin EC] 81 mg PO DAILY 12/30/14 Alprazolam [Xanax] 1 mg PO PRN PRN 09/27/15 Olmesartan Medoxomil [Benicar -] 20 mg PO HS 09/27/15 Sitagliptin Phosphate [Januvia] 100 mg PO DAILY 07/25/16 Famotidine [Pepcid] 20 mg PO BID PRN #14 tablet 09/02/16 Mag Hydrox/Al Hydrox/Simeth [Mylanta Suspension -] 30 ml PO Q6H PRN #1 bottle Oxycodone HCl/Acetaminophen [Percocet 10-325 mg Tablet] 1 each PO PRN PRN Tramadol HCl 50 mg PO PRN PRN 11/17/16 Azithromycin [Zithromax -] 250 mg PO UTDICT #6 tab 01/23/17 Review of Systems - Review of Systems Able to Perform ROS?: Yes Comments:: 01/23/17 01:54 CONSTITUTIONAL: Absent: fever, chills, diaphoresis, generalized weakness, malaise, loss of appetite HEENT: Absent: rhinorrhea, nasal congestion, throat pain, throat swelling, difficulty swallowing, mouth swelling, ear pain, eye pain, visual Changes CARDIOVASCULAR: Absent: chest pain, syncope, palpitations, irregular heart rate, lightheadedness , peripheral edema RESPIRATORY: (+) Cough (occ. productive of clear/yellow sputum) (+) Shortness of breath. Absent: dyspnea with exertion, orthopnea, wheezing, stridor, hemoptysis GASTROINTESTINAL: Absent: abdominal pain, abdominal distension, nausea, vomiting, diarrhea, constipation, melena, hematochezia GENITOURINARY: Absent: dysuria, frequency, urgency, hesitancy, hematuria, flank pain, genital pain MUSCULOSKELETAL: Absent: myalgia, arthralgia, joint swelling SKIN: Absent: rash, itching, pallor HEMATOLOGIC/IMMUNOLOGIC: Absent: easy bleeding, easy bruising, lymphadenopathy, frequent infections ENDOCRINE: Absent: unexplained weight gain, unexplained weight loss, heat intolerance, cold intolerance NEUROLOGIC: Absent: headache, focal weakness or paresthesias, dizziness, unsteady gait, seizure, mental status changes, bladder or bowel incontinence PSYCHIATRIC: Absent: anxiety, depression, suicidal or homicidal ideation, hallucinations. <Jon Peralta - Last Filed: 01/23/17 01:56> *Physical Exam - Vital Signs Last Vital Signs Temp Pulse Resp BP Pulse Ox 98.7 F 87 18 149/96 95 01/23/17 01:19 01/23/17 01:19 01/23/17 01:19 01/23/17 01:19 01/23/17 01:19 - Physical Exam Comments: 01/23/17 01:54 GENERAL: (+) Morbidly obese. Well developed, well nourished. Awake and alert. No acute distress. HEENT: Normocephalic, atraumatic. PERRLA, EOMI. No conjunctival pallor. Sclera are non- icteric. Moist mucous membranes. Oropharynx is clear. NECK: Supple. Full ROM. No JVD. Carotid pulses 2+ and symmetric, without bruits. No thyromegaly. No lymphadenopathy. CARDIOVASCULAR: Regular rate and rhythm. No murmurs, rubs, or gallops. Distal pulses are 2+ and symmetric. PULMONARY: (+) Decreased breath sounds. (+) Scattered wheezes in posterior lung aleman towards bases. No rales or rhonchi. ABDOMINAL: Soft. Non-tender. Non-distended. No rebound or guarding. No organomegaly. Normoactive bowel sounds. MUSCULOSKELETAL Normal range of motion at all joints. No bony deformities or tenderness. No CVA tenderness. EXTREMITIES: No cyanosis. No clubbing. No edema. No calf tenderness. SKIN: Warm and dry. Normal capillary refill. No rashes. No jaundice. NEUROLOGICAL: Alert, awake, appropriate. Cranial nerves 2-12 intact. No deficits to light touch and temperature in face, upper extremities and lower extremities. No motor deficits in the in face, upper extremities and lower extremities. Normoreflexic in the upper and lower extremities. Normal speech. Toes are downgoing bilaterally. Gait is normal without ataxia. PSYCHIATRIC: Cooperative. Good eye contact. Appropriate mood and affect. <Jon Peralta - Last Filed: 01/23/17 01:56> Heart Score/ECG Review #1 01/23/17 01:54 Vent. rate 89 bpm Normal sinus rhythm Cannot rule out anterior infarct, age undetermined. Abnormal ECG. <Jon Peralta - Last Filed: 01/23/17 01:56> ED Treatment Course - LABORATORY CBC & Chemistry Diagram: 01/23/17 01:33 01/23/17 01:33 - ADDITIONAL ORDERS Additional order review: 01/23/17 01:33 RBC 4.45 MCV 88.0 MCHC 33.7 RDW 16.4 H MPV 9.3 Neutrophils % 72.5 Lymphocytes % 17.1 Monocytes % 7.1 Eosinophils % 2.2 Basophils % 1.1 - Medications Given in the ED: ED Medications Discontinued Medications Generic Name Dose Route Start Last Admin Trade Name Jaun PRN Reason Stop Dose Admin Albuterol/Ipratropium 1 amp 01/23/17 01:20 01/23/17 01:32 Duoneb - NEB 01/23/17 01:21 1 amp ONCE STA Administration <Jon Peralta - Last Filed: 01/23/17 01:56> - LABORATORY CBC & Chemistry Diagram: 01/23/17 01:33 01/23/17 01:33 <Js Gimenez - Last Filed: 01/23/17 02:33> Medical Decision Making - Medical Decision Making 01/23/17 02:33 Dr. Gimenez: The scribe's documentation has been prepared under my direction and personally reviewed by me in its entirery. I confirm that the note above accurately reflects all work, treatment, procedures, and medical decision making performed by me. <Js Gimenez - Last Filed: 01/23/17 02:33> *DC/Admit/Observation/Transfer - Attestations Scribe Attestion: 01/23/17 01:54 Documentation prepared by Jon Peralta, acting as medical examiner for Js Gimenez DO. <Jon Peralta - Last Filed: 01/23/17 01:56> <Js Gimenez - Last Filed: 01/23/17 02:33> Diagnosis at time of Disposition: Bronchitis - Prescriptions Prescriptions: Azithromycin [Zithromax -] 250 mg PO UTDICT #6 tab - Referrals Referrals: Nicolas Reece MD [Staff Physician] - - Patient Instructions Printed Discharge Instructions: DI for Acute Bronchitis
[2017-01-23] MEDS ORDERED: ALBUTEROL SO4 2.5/IPRATROPIUM 0.5 INH SOL 3 ML VIAL.NEB. NEB STA (01:20)
[2017-01-23 01:33] VITALS: PULSE 87; BMI 48.7
[2017-01-23 01:48] LABS: BASOPHIL 1.1 % (0-2.0); EOSINOPHIL 2.2 % (0-4.5); MCH 29.6 pg (25.7-33.7); MCHC 33.7 g/dl (32.0-35.9); MEAN PLT VOLUME 9.3 fl (7.5-11.1); NEUTROPHILS 72.5 % (42.8-82.8); PLATELET COUNT 218 K/MM3 (134-434); RDW 16.4 % (11.9-15.9); WHITE BLOOD COUNT 8.8 K/mm3 (4.0-10.0)
[2017-01-23 02:02] LABS: INR 1.06 (0.82-1.09); PROTHROMBIN TIME (PATIENT) 11.7 SEC (9.98-11.88)
[2017-01-23 02:12] LABS: ALBUMIN 3.3 g/dl (3.4-5.0); ANION GAP 9 (8-16); BILIRUBIN,TOTAL 0.5 mg/dL (0.2-1.0); CALCIUM 8.1 mg/dL (8.5-10.1); CO2 29 mmol/L (21-32); CREATININE 1.2 mg/dL (0.7-1.3); GLUCOSE,RANDOM 221 mg/dL (74-106); SGPT/ALT 40 U/L (12-78); TOT PROT 7.3 g/dl (6.4-8.2)
[2017-01-23 02:14] LABS: ALK PHOS 62 U/L (45-117); CPK 294 IU/L (39-308); TROPONIN I < 0.02 ng/ml (0.00-0.05)
[2017-01-23 02:15] LABS: SGOT/AST 50 U/L (15-37)
[2017-01-23] MEDS ORDERED: AZITHROMYCIN IVPB 500 MG in DEXTROSE 5%-WATER - 250 ML IVPB ONE (02:22)
[2017-01-23] MEDS ORDERED: AZITHROMYCIN IVPB 250 ML IVPB ONE (02:26)
[2017-01-23 03:25] VITALS: BP 129/83; TEMP 98.3
--- NOTE | 2017-01-23 09:33 | EKG ---
Test Reason : Blood Pressure : / mmHG Vent. Rate : 089 BPM Atrial Rate : 089 BPM P-R Int : 148 ms QRS Dur : 092 ms QT Int : 390 ms P-R-T Axes : 031 006 050 degrees QTc Int : 474 ms NORMAL SINUS RHYTHM CANNOT RULE OUT ANTERIOR INFARCT , AGE UNDETERMINED ABNORMAL ECG WHEN COMPARED WITH ECG OF 02-SEP-2016 09:19, NO SIGNIFICANT CHANGE WAS FOUND Confirmed by JUANITA QUIROZ MD ([id number]) on 01/23/2017 9:32:48 AM Referred By: Confirmed By:JUANITA QUIROZ MD
== END 2017-01-23 03:25 | disposition home or self-care (01) ==
LOC: JER 01:02
PROC: 3E03329 Introduction of Other Anti-infective into Peripheral Vein, Percutaneous Approach (ICD-10-PCS; principal; 2017-01-23)
PROC: 3E0337Z Introduction of Electrolytic and Water Balance Substance into Peripheral Vein, Percutaneous Approach (ICD-10-PCS; 2017-01-23)
DX: J40 Bronchitis, not specified as acute or chronic (principal); I10 Essential (primary) hypertension; E11.9 Type 2 diabetes mellitus without complications; Z85.850 Personal history of malignant neoplasm of thyroid
CPT/HCPCS: 36415; 71020-TC; 80053; 82553; 83880; 84484; 85025; 85610; 87040; 93005; 93010; 94640; 96365; 99283-25

== ENCOUNTER 2017-01-24 15:55 | Emergency (ER) | payer OTHER ==
--- NOTE | 2017-01-24 16:09 | PDOC ---
History of Present Illness - General History Source: Patient, Old Records Exam Limitations: No Limitations - History of Present Illness Initial Comments: 01/24/17 16:17 The patient is a 46 year old male with a past medical history of hypertension, hyperlipidemia, diabetes, and thyroid cancer who presents to the emergency department with persistent worsening for 3 days. The patient notes occasional productive clear/yellow sputum and reports associated shortness of breath with his cough. The patient denies any sick contacts or recent travel. The patient reports associated headache secondary to his cough. The patient was last seen at [facility] yesterday morning for similar symptoms. He states that he received one nebulizer treatment with moderate improvement and was sent home with a prescription for antibiotics. Patient reports compliance with antibiotics. <Stiven Riley - Last Filed: 01/24/17 16:25> <Bess George - Last Filed: 01/24/17 18:13> - General Chief Complaint: Respiratory Stated Complaint: REVISIT FOR COUGH Time Seen by Provider: 01/24/17 16:01 Past History <Stiven Riley - Last Filed: 01/24/17 16:25> - Past Medical History Anemia: No Asthma: No Cancer: Yes (THYROID) Cardiac Disorders: Yes (STENT X1) CVA: No COPD: No CHF: No Dementia: No Diabetes: Yes GI Disorders: Yes (GERD) Disorders: No HTN: Yes Hypercholesterolemia: Yes Liver Disease: No Seizures: No Thyroid Disease: Yes (THYROIDECTOMY) - Surgical History Abdominal Surgery: No Appendectomy: No Cardiac Surgery: Yes (STENT X1) Cholecystectomy: No Lung Surgery: Yes Neurologic Surgery: No Orthopedic Surgery: Yes (LEFT ROTATOR CUFF REPAIR 2002) - Immunization History Immunization Up to Date: Yes - Suicide/Smoking/Psychosocial Hx Smoking Status: No Smoking History: Never smoked Have you smoked in the past 12 months: No Number of Cigarettes Smoked Daily: 0 Hx Alcohol Use: No Drug/Substance Use Hx: No Substance Use Type: None Hx Substance Use Treatment: No <Bess George - Last Filed: 01/24/17 18:13> - Past Medical History Allergies/Adverse Reactions: Allergies Allergy/AdvReac Type Severity Reaction Status Date / Time green pepper Allergy Severe Difficulty Verified 01/23/17 01:19 Breathing No Known Drug Allergies Allergy Unknown Verified 01/23/17 01:19 PEPPER Allergy Uncoded 01/23/17 01:19 Home Medications: Ambulatory Orders Levothyroxine [Synthroid -] 300 mcg PO DAILY 08/21/14 Aspirin [Aspirin EC] 81 mg PO DAILY 12/30/14 Alprazolam [Xanax] 1 mg PO PRN PRN 09/27/15 Olmesartan Medoxomil [Benicar -] 20 mg PO HS 09/27/15 Sitagliptin Phosphate [Januvia] 100 mg PO DAILY 07/25/16 Famotidine [Pepcid] 20 mg PO BID PRN #14 tablet 09/02/16 Mag Hydrox/Al Hydrox/Simeth [Mylanta Suspension -] 30 ml PO Q6H PRN #1 bottle Oxycodone HCl/Acetaminophen [Percocet 10-325 mg Tablet] 1 each PO PRN PRN Tramadol HCl 50 mg PO PRN PRN 11/17/16 Azithromycin [Zithromax -] 250 mg PO UTDICT #6 tab 01/23/17 Albuterol Sulfate Inhaler - [Ventolin HFA Inhaler -] 1 - 2 inh PO QID PRN #1 inhaler 01/24/17 Guaifenesin AC [Robitussin AC] 5 ml PO Q6H PRN #60 ml MDD 20 mL 01/24/17 Prednisone [Deltasone -] 40 mg PO DAILY #8 tablet 01/24/17 Review of Systems - Review of Systems Able to Perform ROS?: Yes Comments:: 01/24/17 16:17 GENERAL/CONSTITUTIONAL: No fever or chills. No weakness. HEAD, EYES, EARS, NOSE AND THROAT: No change in vision. No ear pain or discharge. No sore throat. GASTROINTESTINAL: No nausea, vomiting, diarrhea or constipation. GENITOURINARY: No dysuria, frequency, or change in urination. CARDIOVASCULAR: No chest pain or shortness of breath. RESPIRATORY: (+) Cough. No hemoptysis. MUSCULOSKELETAL: No joint or muscle swelling or pain. No neck or back pain. SKIN: No rash NEUROLOGIC: (+)Headache. No vertigo, loss of consciousness, or change in strength/sensation. ENDOCRINE: No increased thirst. No abnormal weight change. HEMATOLOGIC/LYMPHATIC: No anemia, easy bleeding, or history of blood clots. ALLERGIC/IMMUNOLOGIC: No hives or skin allergy. <Stiven Riley - Last Filed: 01/24/17 16:25> *Physical Exam - Vital Signs Last Vital Signs Temp Pulse Resp BP Pulse Ox 98.8 F 101 H 22 134/79 93 L 01/24/17 15:59 01/24/17 15:59 01/24/17 15:59 01/24/17 15:59 01/24/17 15:59 - Physical Exam Comments: 01/24/17 16:18 GENERAL: Awake, alert, and fully oriented, in no acute distress HEAD: No signs of trauma EYES: PERRLA, EOMI, sclera anicteric, conjunctiva clear ENT: Auricles normal inspection, hearing grossly normal, nares patent, oropharynx clear without exudates. Moist mucosa NECK: Normal ROM, supple, no lymphadenopathy, JVD, or masses LUNGS: Breath sounds equal. Scattered expiratory wheezes bilaterally. Speaking in full sentences. HEART: Regular rate and rhythm, normal S1 and S2, no murmurs, rubs or gallops ABDOMEN: Soft, nontender, normoactive bowel sounds. No guarding, no rebound. No masses EXTREMITIES: Normal range of motion, no edema. No clubbing or cyanosis. No cords, erythema, or tenderness NEUROLOGICAL: Cranial nerves II through XII grossly intact. Normal speech, normal gait SKIN: Warm, Dry, normal turgor, no rashes or lesions noted. <Stiven Riley - Last Filed: 01/24/17 16:25> Medical Decision Making - Medical Decision Making XR obtained, no ptx. Pt improved significantly with nebs, steroids, and robitussin AC. Will DC home with the same. <Bess George - Last Filed: 01/24/17 18:13> *DC/Admit/Observation/Transfer - Attestations Scribe Attestion: 01/24/17 16:18 Documentation prepared by Stiven Riley, acting as medical specialist for Bess George MD <Stiven Riley - Last Filed: 01/24/17 16:25> - Discharge Dispostion Admit: No <Bess George - Last Filed: 01/24/17 18:13> Diagnosis at time of Disposition: Bronchitis - Discharge Dispostion Disposition: HOME Condition at time of disposition: Stable - Prescriptions Prescriptions: Prednisone [Deltasone -] 40 mg PO DAILY #8 tablet Guaifenesin AC [Robitussin AC] 5 ml PO Q6H PRN #60 ml MDD 20 mL PRN Reason: Cough - Referrals Referrals: Tomasa Quintero MD [Primary Care Provider] - - Patient Instructions Printed Discharge Instructions: DI for Acute Bronchitis
[2017-01-24 16:12] VITALS: BP 134/79; PULSE 101; TEMP 98.8; BMI 48.6
[2017-01-24] MEDS ORDERED: predniSONE 20 MG TABLET (UD) PO ONE (16:14)
[2017-01-24] MEDS ORDERED: guaiFENesin/CODEINE 10 ML UNIT-DOSE CUPS PO ONE (16:14)
[2017-01-24] MEDS ORDERED: ALBUTEROL SO4 2.5/IPRATROPIUM 0.5 INH SOL 3 ML VIAL.NEB. NEB ONE (16:17)
[2017-01-24] MEDS ORDERED: guaiFENesin/CODEINE 10 ML UNIT-DOSE CUPS ONE (16:17)
[2017-01-24] MEDS: ALBUTEROL SO4 2.5/IPRATROPIUM 0.5 INH SOL 3 ML VIAL.NEB. NEB SCH ×4 (16:20→17:27)
== END 2017-01-24 17:48 | disposition home or self-care (01) ==
LOC: SUPCPDRO 15:55 → FER 15:55
PROC: 3E0F7GC Introduction of Other Therapeutic Substance into Respiratory Tract, Via Natural or Artificial Opening (ICD-10-PCS; principal; 2017-01-24)
DX: J40 Bronchitis, not specified as acute or chronic (principal); I10 Essential (primary) hypertension; E78.5 Hyperlipidemia, unspecified; E11.9 Type 2 diabetes mellitus without complications; Z85.850 Personal history of malignant neoplasm of thyroid
CPT/HCPCS: 71020-TC; 94640; 99281-25

== ENCOUNTER 2017-02-15 05:53 | Emergency (ER) | payer OTHER ==
[2017-02-15 06:19] VITALS: BP 163/96; PULSE 98; TEMP 98.1; BMI 49.2
--- NOTE | 2017-02-15 06:48 | PDOC ---
History of Present Illness - General Chief Complaint: Pain Stated Complaint: EAR PAIN - History of Present Illness Initial Comments: 02/15/17 06:38 46 yo M with h/o HTN, HLD, NIDDM, Thyroid Ca who presents with R ear pain.R side inner ear pain beginning at 0000 described as sharp, unrelenting and radiating to R side jaw and behind right ear. Also endorses numbness of right side mandible. Pain mildly worse with chewing. No hearing loss, hyperacusis, tinnitus, ear drainage/discharge,Denies neck pain, bruxism, WHITE, fevers/chills, popping/clicking of jaw, vertigo, lightheadedness, vision changes, weakness of ext, new onset rashes, chest pain, SOB. Attempted to clean out ear with q-tip yest evening. Attempted otc analgesia with ASA x 1. No h/o ear infection, or head/neck surgery. Past History - Past Medical History Allergies/Adverse Reactions: Allergies Allergy/AdvReac Type Severity Reaction Status Date / Time green pepper Allergy Severe Difficulty Verified 02/15/17 06:17 Breathing No Known Drug Allergies Allergy Unknown Verified 02/15/17 06:17 PEPPER Allergy Uncoded 02/15/17 06:17 Home Medications: Ambulatory Orders Levothyroxine [Synthroid -] 300 mcg PO DAILY 08/21/14 Aspirin [Aspirin EC] 81 mg PO DAILY 12/30/14 Alprazolam [Xanax] 1 mg PO PRN PRN 09/27/15 Olmesartan Medoxomil [Benicar -] 20 mg PO HS 09/27/15 Sitagliptin Phosphate [Januvia] 100 mg PO DAILY 07/25/16 Famotidine [Pepcid] 20 mg PO BID PRN #14 tablet 09/02/16 Mag Hydrox/Al Hydrox/Simeth [Mylanta Suspension -] 30 ml PO Q6H PRN #1 bottle Oxycodone HCl/Acetaminophen [Percocet 10-325 mg Tablet] 1 each PO PRN PRN Tramadol HCl 50 mg PO PRN PRN 11/17/16 Azithromycin [Zithromax -] 250 mg PO UTDICT #6 tab 01/23/17 Albuterol Sulfate Inhaler - [Ventolin HFA Inhaler -] 1 - 2 inh PO QID PRN #1 inhaler 01/24/17 Guaifenesin AC [Robitussin AC] 5 ml PO Q6H PRN #60 ml MDD 20 mL 01/24/17 Prednisone [Deltasone -] 40 mg PO DAILY #8 tablet 01/24/17 Anemia: No Asthma: No Cancer: Yes (THYROID) Cardiac Disorders: Yes (STENT X1) CVA: No COPD: No CHF: No Dementia: No Diabetes: Yes GI Disorders: Yes (GERD) Disorders: No HTN: Yes Hypercholesterolemia: Yes Liver Disease: No Seizures: No Thyroid Disease: Yes (THYROIDECTOMY) - Surgical History Abdominal Surgery: No Appendectomy: No Cardiac Surgery: Yes (STENT X1) Cholecystectomy: No Lung Surgery: Yes Neurologic Surgery: No Orthopedic Surgery: Yes (LEFT ROTATOR CUFF REPAIR 2002) - Immunization History Immunization Up to Date: Yes - Suicide/Smoking/Psychosocial Hx Smoking Status: No Smoking History: Never smoked Have you smoked in the past 12 months: No Number of Cigarettes Smoked Daily: 0 Information on smoking cessation initiated: No Hx Alcohol Use: No Drug/Substance Use Hx: No Substance Use Type: None Hx Substance Use Treatment: No Review of Systems - Review of Systems Comments:: 02/15/17 06:52 GENERAL/CONSTITUTIONAL: No fever or chills. No weakness. HEAD, EYES, EARS, NOSE AND THROAT: + Ear and jaw pain. No change in vision.. No sore throat.- CARDIOVASCULAR: No chest pain or shortness of breath RESPIRATORY: No cough, wheezing, or hemoptysis. GASTROINTESTINAL: No nausea, vomiting, diarrhea or constipation. GENITOURINARY: No dysuria, frequency, or change in urination. MUSCULOSKELETAL: No joint or muscle swelling or pain. No neck or back pain. SKIN: No rash NEUROLOGIC: No headache, vertigo, loss of consciousness, or change in strength/ sensation. ENDOCRINE: No increased thirst. No abnormal weight change HEMATOLOGIC/LYMPHATIC: No anemia, easy bleeding, or history of blood clots. ALLERGIC/IMMUNOLOGIC: No hives or skin allergy. *Physical Exam - Vital Signs Last Vital Signs Temp Pulse Resp BP Pulse Ox 98.1 F 98 H 18 163/96 99 02/15/17 06:17 02/15/17 06:17 02/15/17 06:17 02/15/17 06:17 02/15/17 06:17 - Physical Exam Comments: 02/15/17 06:49 GENERAL: Awake, alert, and fully oriented, in no acute distress HEAD: No signs of trauma, normocephalic, atraumatic EYES: PERRLA, EOMI, sclera anicteric, conjunctiva clear ENT: + Right sided post auricular ttp. Auricles normal inspection. Absent erythema, buldging or retraction of tympanic membrane, absent vesicles, or external ear granulation/discharge, absent ertyhema of ear canal or TM rupture, hearing grossly normal, nares patent, Pt. with poor dentition with multiple dental carries, absent halitosis. Moist mucosa NECK: Normal ROM, supple, no lymphadenopathy, JVD, or masses LUNGS: No distress, speaks full sentences, clear to auscultation bilaterally HEART: Regular rate and rhythm, normal S1 and S2, no murmurs, rubs or gallops, peripheral pulses normal and equal bilaterally. EXTREMITIES : Normal inspection, Normal range of motion, no edema. No clubbing or cyanosis. NEUROLOGICAL: Cranial nerves II through XII grossly intact. Normal speech, no focal sensorimotor deficits SKIN: Warm, Dry, normal turgor, no rashes or lesions noted. ED Treatment Course - LABORATORY CBC & Chemistry Diagram: 02/15/17 07:48 02/15/17 07:48 Medical Decision Making - Medical Decision Making 02/15/17 07:06 46 yo M with h/o HTN, HLD, NIDDM, Thyroid Ca who presents with R ear pain.R side inner ear pain beginning at 0000 described as sharp, unrelenting and radiating to R side jaw and behind right ear. Also endorses numbness of right side mandible. Pain mildly worse with chewing. No hearing loss, hyperacusis, tinnitus, ear drainage/discharge,Denies neck pain, bruxism, WHITE, fevers/chills, popping/clicking of jaw, vertigo, lightheadedness, vision changes, weakness of ext, new onset rashes, chest pain, SOB. Physical exam noteable for post auricular ttp, normal tympanic membrane, and poor dentition. Low suspicion or [place]. Normal sensation, absent facial droop or paralysis or external ear canal lesions. DDx: AOM, Trigeminal Nerualgia, Mastoiditis, TMJ ED Course: CBC,CMP CT FACIAL BONES Toradol 30 mg IM Hand off to Dr. Westbrook *DC/Admit/Observation/Transfer Diagnosis at time of Disposition: Jaw pain - Discharge Dispostion Disposition: HOME - Referrals Referrals: Nicolas Reece MD [Primary Care Provider] - Art Roblero MD [Staff Physician] - - Patient Instructions Printed Discharge Instructions: DI for Temporomandibular Disorder Additional Instructions: Call the number provided to make an appointment with ENT clinic to have your jaw and ear pain further evaluated. If you experience worsening pain, swelling, fevers, dizziness, or any other concerning symptoms, return to the ER immediately.
[2017-02-15] MEDS ORDERED: KETOROLAC TROMETHAMINE 15 MG/ML VIAL IVPUSH ONE (07:03)
[2017-02-15] MEDS ORDERED: KETOROLAC TROMETHAMINE 30 MG/1 ML VIAL IM ONE (07:04)
[2017-02-15] MEDS ORDERED: KETOROLAC TROMETHAMINE 30 MG/1 ML VIAL ONE (07:11)
--- NOTE | 2017-02-15 07:54 | PDOC ---
Attending Attestation - Resident Resident Name: Seth Hamm - ED Attending Attestation I have performed the following: I have examined & evaluated the patient, The case was reviewed & discussed with the resident, I agree w/resident's findings & plan, Exceptions are as noted - HPI HPI: 02/15/17 07:46 46 M with h/o HTN, HLD, DM, thyroid CA presents to ER with R ear and jaw pain that began this morning, waking him from sleep. He reports sharp pain radiating from his ear to his R jaw. He states that the pain is constant, although it has waned in severity since onset. He states that it was worsened with movement of his jaw. Pt denies any F/C. Denies any new rashes on his face. Denies any tooth or gum pain. Denies hearing loss. Denies pain anywhere else in his body, no WHITE/N /V. No numbness/weakness in his face or extremities. - Physicial Exam PE: 02/15/17 07:54 "GENERAL: Awake, alert, and fully oriented, in no acute distress HEAD: No signs of trauma EYES: PERRLA, EOMI, sclera anicteric, conjunctiva clear ENT: TMs normal, no effusion or bulging, no erythema, normal external auditory canal, no tenderness behind ear, no neck pain, no temporal artery tenderness, Auricles normal inspection, hearing grossly normal, nares patent, oropharynx clear without exudates. Moist mucosa NECK: Nontender, no stepoffs, Normal ROM, supple, no lymphadenopathy, JVD, or masses LUNGS: Breath sounds equal, clear to auscultation bilaterally. No wheezes, and no crackles HEART: Regular rate and rhythm, normal S1 and S2, no murmurs, rubs or gallops ABDOMEN: Soft, nontender, normoactive bowel sounds. No guarding, no rebound. No masses EXTREMITIES: Normal range of motion, no edema. No clubbing or cyanosis. No cords, erythema, or tenderness NEUROLOGICAL: Cranial nerves II through XII intact. 5/5 strength and sensation in all extremities, Normal speech, normal gait SKIN: Warm, Dry, normal turgor, no rashes or lesions noted. " - Medical Decision Making 02/15/17 07:56 46 M with R ear and jaw pain. Possible TMJ vs trigeminal neuralgia. No evidence of zoster, normal TM. No hearing loss or vertiginous symptoms. No infectious signs or symptoms. - CT temporal bone to r/o mastoiditis - Labs - Toradol - ENT f/u 02/15/17 10:20 CT negative for mastoiditis Pt reassessed - now feels significantly better with minimal pain. Pt well appearing, now with no complaints. Vitals normal. Will DC with ENT follow up at this time.
[2017-02-15 08:01] LABS: BASOPHIL 1.2 % (0-2.0); EOSINOPHIL 1.8 % (0-4.5); MCH 29.3 pg (25.7-33.7); MCHC 34.1 g/dl (32.0-35.9); MEAN CELL VOLUME 86.1 fl (80-96); MEAN PLT VOLUME 9.1 fl (7.5-11.1); NEUTROPHILS 72.5 % (42.8-82.8); PLATELET COUNT 163 K/MM3 (134-434); RDW 15.5 % (11.9-15.9); WHITE BLOOD COUNT 6.5 K/mm3 (4.0-10.0)
--- NOTE | 2017-02-15 08:01 | PDOC ---
*Physical Exam - Vital Signs Last Vital Signs Temp Pulse Resp BP Pulse Ox 98.1 F 98 H 18 163/96 99 02/15/17 06:17 02/15/17 06:17 02/15/17 06:17 02/15/17 06:17 02/15/17 06:17 <Ilia Doherty - Last Filed: 02/15/17 10:19> - Vital Signs Last Vital Signs Temp Pulse Resp BP Pulse Ox 98.1 F 98 H 18 163/96 99 02/15/17 06:17 02/15/17 06:17 02/15/17 06:17 02/15/17 06:17 02/15/17 06:17 - Physical Exam Comments: 02/15/17 07:57 General Appearance: Nourished. No Apparent Distress HEENT: EOMI, JOLIE. Normal TM without bulging or erythema. Point tenderness to palpation in the post auricular region. No Pharyngeal Erythema, Tonsillar Exudate, Tonsillar Erythema Neck: No Cervical Lymphadenopathy Respiratory/Chest: Lungs Clear, Normal Breath Sounds. No Crackles, Rales, Rhonchi, Wheezing Cardiovascular: Regular Rhythm, Regular Rate. No Murmur, Gallops, Rubs Gastrointestinal/Abdominal: Normal Bowel Sounds, Soft. No Guarding, Rebound, Tenderness Musculoskeletal: No CVA Tenderness Extremity: Normal Capillary Refill Integumentary: Normal Color, Dry, Warm Neurologic: Fully Oriented, Alert, Normal Mood/Affect, Normal Response, <Zelalem Westbrook - Last Filed: 02/15/17 10:25> ED Treatment Course - LABORATORY CBC & Chemistry Diagram: 02/15/17 07:48 02/15/17 07:48 - ADDITIONAL ORDERS Additional order review: Laboratory Results 02/15/17 02/15/17 07:48 07:48 Sodium 135 L Potassium 4.4 Chloride 99 Carbon Dioxide 31 Anion Gap 5 L BUN 11 D Creatinine 0.9 D Creat Clearance w eGFR > 60 Random Glucose 224 H Calcium 7.9 L Total Bilirubin 0.7 D AST 23 D ALT 30 D Alkaline Phosphatase 61 C-Reactive Protein 3.2 H Total Protein 6.6 Albumin 3.1 L 02/15/17 07:48 RBC 4.49 MCV 86.1 MCHC 34.1 RDW 15.5 MPV 9.1 Neutrophils % 72.5 Lymphocytes % 16.9 Monocytes % 7.6 Eosinophils % 1.8 Basophils % 1.2 - Medications Given in the ED: ED Medications Discontinued Medications Generic Name Dose Route Start Last Admin Trade Name Freq PRN Reason Stop Dose Admin Ketorolac Tromethamine 30 mg 02/15/17 07:04 02/15/17 07:18 Toradol Injection - IM 02/15/17 07:05 30 mg ONCE ONE Administration <Ilia Doherty - Last Filed: 02/15/17 10:19> - LABORATORY CBC & Chemistry Diagram: 02/15/17 07:48 02/15/17 07:48 - RADIOLOGY Radiology Studies Ordered: Category Date Time Status TEMPORAL BONES CT W/O CONTRAST [CT] Stat CT Scan 02/15/17 07:53 Ordered - Medications Given in the ED: ED Medications Discontinued Medications Generic Name Dose Route Start Last Admin Trade Name Freq PRN Reason Stop Dose Admin Ketorolac Tromethamine 30 mg 02/15/17 07:04 02/15/17 07:18 Toradol Injection - IM 02/15/17 07:05 30 mg ONCE ONE Administration <Zelalem Westbrook - Last Filed: 02/15/17 10:25> Progress Note - Progress Note Progress Note: Received sign out from Dr. Hamm. The patient is a 46 year old male who presents for evaluation of right ear pain beginning at midnight. Pending labs and ct face to evaluate for mastoiditis. <Zelalem Westbrook - Last Filed: 02/15/17 10:25> Medical Decision Making - Medical Decision Making 02/15/17 10:22 CBC, cmp are unremarkable. CT face and temporal bones were negative as read by our radiologist. We are comfortable discharging the patient home at this time with ENT follow up. We discussed the results with the patient as well as the need to follow up with ENT if he has persistent symptoms and the patient voiced understanding and is agreeable with the plan. <Zelalem Westbrook - Last Filed: 02/15/17 10:25> *DC/Admit/Observation/Transfer <Ilia Doherty - Last Filed: 02/15/17 10:19> <Zelalem Westbrook - Last Filed: 02/15/17 10:25> Diagnosis at time of Disposition: Jaw pain - Discharge Dispostion Disposition: HOME - Referrals Referrals: Nicolas Reece MD [Primary Care Provider] - Art Roblero MD [Staff Physician] - - Patient Instructions Printed Discharge Instructions: DI for Temporomandibular Disorder Additional Instructions: Call the number provided to make an appointment with ENT clinic to have your jaw and ear pain further evaluated. If you experience worsening pain, swelling, fevers, dizziness, or any other concerning symptoms, return to the ER immediately.
[2017-02-15 09:05] LABS: ALBUMIN 3.1 g/dl (3.4-5.0); ANION GAP 5 (8-16); CALCIUM 7.9 mg/dL (8.5-10.1); CO2 31 mmol/L (21-32); CREATININE 0.9 mg/dL (0.7-1.3); GLUCOSE,RANDOM 224 mg/dL (74-106); SGOT/AST 23 U/L (15-37); SGPT/ALT 30 U/L (12-78)
[2017-02-15 09:07] LABS: ALK PHOS 61 U/L (45-117); BILIRUBIN,TOTAL 0.7 mg/dL (0.2-1.0); TOT PROT 6.6 g/dl (6.4-8.2)
== END 2017-02-15 11:02 | disposition home or self-care (01) ==
LOC: JER 05:53
PROC: 3E0233Z Introduction of Anti-inflammatory into Muscle, Percutaneous Approach (ICD-10-PCS; principal; 2017-02-15)
DX: R68.84 Jaw pain (principal); Z95.5 Presence of coronary angioplasty implant and graft; I10 Essential (primary) hypertension; E11.9 Type 2 diabetes mellitus without complications; E78.00 Pure hypercholesterolemia, unspecified; Z79.84 Long term (current) use of oral hypoglycemic drugs; Z85.850 Personal history of malignant neoplasm of thyroid; E89.0 Postprocedural hypothyroidism
CPT/HCPCS: 36415; 70480-TC; 70486-TC; 80053; 85025; 85651; 86140; 96372; 99281-25

== ENCOUNTER 2018-04-30 18:58 | Observation (INO) | payer OTHER ==
--- NOTE | 2018-04-30 19:23 | PDOC ---
History of Present Illness - General History Source: Patient Exam Limitations: No Limitations <Lissa Chow - Last Filed: 04/30/18 22:25> - General History Source: Patient Exam Limitations: No Limitations <Will Mae I - Last Filed: 04/30/18 22:37> - General Chief Complaint: Chest Pain Stated Complaint: CHEST PAIN Time Seen by Provider: 04/30/18 19:21 - History of Present Illness Initial Comments: 04/30/18 21:00 The patient is a 47 year old male, with a significant past medical history of HTN, HLD, stents x4 (last stent placement was 6 months ago), NIDDM, Thyroid Ca, and Castleman Disease, who presents to the emergency department today complaining of LT chest discomfort, that occured today. The patient reports a sudden onset of constant left sided chest pain that occured while he was moving heavy boxes around 3:00pm earlier today. The patient reports the chest discomfort is nonradiating and describes it as a pressure-like sensation, with a 4/10 severity. The patient notes the chest discomfort is exacerbated after eating. Patient denies fever and chills. Patient denies recent weight loss. Patient denies SOB or cough. Denies palpitations. Denies diaphoresis. Denies nausea and vomiting. Water Commissioner: Dr. Faye PAST MEDICAL HISTORY: HTN, HLD, NIDDM, Thyroid Ca, and Castleman Disease PAST SURGICAL HISTORY: no significant history FAMILY HISTORY: Sister has a history of coronary artery bypass. SOCIAL HISTORY: Pt lives with family and is employed. MEDICATIONS: reviewed ALLERGIES: As per nursing notes General: No fevers or chills, no weakness, no weight loss HEENT: No change in vision. No sore throat,. No ear pain CardioVascular: +Chest discomfort. No shortness of breath Respiratory:No cough, or wheezing. Gastrointestinal: no nausea, vomiting, diarrhea or constipation, No rectal bleeding Genitourinary: No dysuria, hematuria, or frequency Musculoskeletal: No joint or muscle pain or swelling Neurologic: No headache, vertigo, dizziness or loss of consciousness Psychiatric: nor depression Skin: No rashes or easy bruising Endocrine: no increased thirst or abnormal weight change Allergic: no skin or latex allergy All other systems reviewed and normal General: +Morbidly obese. no acute distress HEENT: Throat: Normal, tonsils normal, no erythema or exudate Neck: Supple, no meningeal signs, no lymphadenopathy Eyes::Pupils equal reactive and round, extraocular motion intact Chest: Nontender to palpation Cardiac: S1-S2 normal, regular rate and rhythm, no murmurs rubs or gallops Respiratory: Lungs clear to auscultation bilateral Abdomen: Soft, nondistended, normal bowel sounds, nontender to palpation diffusely Extremities: Warm, dry, no cyanosis, clubbing, or edema Skin: No rashes Neuro: Alert and oriented x3, nonfocal exam, grossly intact, normal gait Psych: Normal mood and affect (Lissa Chow) 04/30/18 20:20 A portion of this note was documented by scribe services under my direction. I have reviewed the details of the note, within reason, and agree with the documentation with the following case summary and management plan written by me. Patient treated in the ED. Nursing notes are reviewed and incorporated into the medical decision-making. Vital signs reviewed. Assessment and plan: This is a 47-year-old male with multiple cardiac risk factors including obesity hypertension hyperlipidemia cardiac stents 4 in the past and strong family history coronary disease and comes in complaining of left -sided chest pressure. Patient said he was last stented approximately 6 months ago. Cardiac workup initiated including CBC, comp, EKG, chest x-ray, cardiac enzymes. Patient will require a observation admission to rule him out given his multiple risk factors and the heart score of 4 EKG showed normal sinus rhythm at a rate of 90 and occasional PAC otherwise no acute ST-T wave changes and normal EKG (Will Mae I) Past History <Lissa Chow - Last Filed: 04/30/18 22:25> - Past Medical History Anemia: No Asthma: No Cancer: Yes (THYROID) Cardiac Disorders: Yes (STENT X1) CVA: No COPD: No CHF: No Dementia: No Diabetes: Yes GI Disorders: Yes (GERD) Disorders: No HTN: Yes Hypercholesterolemia: Yes Liver Disease: No Seizures: No Thyroid Disease: Yes (THYROIDECTOMY) - Surgical History Abdominal Surgery: No Appendectomy: No Cardiac Surgery: Yes (STENT X4) Cholecystectomy: No Lung Surgery: Yes Neurologic Surgery: No Orthopedic Surgery: Yes (LEFT ROTATOR CUFF REPAIR 2002) - Immunization History Immunization Up to Date: Yes - Suicide/Smoking/Psychosocial Hx Smoking Status: No Smoking History: Never smoked Have you smoked in the past 12 months: No Number of Cigarettes Smoked Daily: 0 Hx Alcohol Use: No Drug/Substance Use Hx: No Substance Use Type: None Hx Substance Use Treatment: No <Will Mae I - Last Filed: 04/30/18 22:37> - Past Medical History Allergies/Adverse Reactions: Allergies Allergy/AdvReac Type Severity Reaction Status Date / Time green pepper Allergy Severe Difficulty Verified 02/15/17 06:17 Breathing No Known Drug Allergies Allergy Unknown Verified 02/15/17 06:17 PEPPER Allergy Uncoded 02/15/17 06:17 Home Medications: Ambulatory Orders Levothyroxine [Synthroid -] 300 mcg PO DAILY 08/21/14 Aspirin [Aspirin EC] 81 mg PO DAILY 12/30/14 Alprazolam [Xanax] 1 mg PO PRN PRN 09/27/15 Olmesartan Medoxomil [Benicar -] 20 mg PO HS 09/27/15 Sitagliptin Phosphate [Januvia] 100 mg PO DAILY 07/25/16 Oxycodone HCl/Acetaminophen [Percocet 10-325 mg Tablet] 1 each PO PRN PRN Tramadol HCl 50 mg PO PRN PRN 11/17/16 Albuterol Sulfate Inhaler - [Ventolin HFA Inhaler -] 1 - 2 inh PO QID PRN #1 inhaler 01/24/17 Atorvastatin Ca [Lipitor] 80 mg PO HS 04/30/18 Clopidogrel Bisulfate [Plavix] 75 mg PO DAILY 04/30/18 Cardiac Specific PMH - Complaint Specific PMHX Cardiac Arrhythmia: No Cardiac Stent: No Pacemaker: No <Will Mae I - Last Filed: 04/30/18 22:37> - Vital Signs Last Vital Signs Temp Pulse Resp BP Pulse Ox 98.6 F 80 18 126/69 97 04/30/18 18:58 04/30/18 20:36 04/30/18 20:36 04/30/18 20:36 04/30/18 20:36 Heart Score/ECG Review - History History: Moderately suspicious - Electrocardiogram EKG: Normal - Age Age: 45-65 - Risk Factors Risk Factors Heart Score: Yes Hx Hypercholesterolemia, Yes Hx Hypertension, Yes Hx Diabetes, Yes Positive family hx of cardiac disease, Yes Hx Obesity Based on the list above the patient has:: >/=3 risk factors or Hx atherosclerotic disease - Troponin Troponin: </= normal limit - Score Heart Score - Total: 4 <Will Mae I - Last Filed: 04/30/18 22:37> - Procedure Monitoring Vital Signs: Procedure Monitoring Vital Signs Temperature 98.6 F 04/30/18 18:58 Pulse Rate 80 04/30/18 20:36 Respiratory Rate 18 04/30/18 20:36 Blood Pressure 126/69 04/30/18 20:36 O2 Sat by Pulse Oximetry (%) 97 04/30/18 20:36 ED Treatment Course - LABORATORY CBC & Chemistry Diagram: 04/30/18 20:20 04/30/18 20:20 <Lissa Chow - Last Filed: 04/30/18 22:25> - LABORATORY CBC & Chemistry Diagram: 04/30/18 20:20 04/30/18 20:20 <Will Mae I - Last Filed: 04/30/18 22:37> - ADDITIONAL ORDERS Additional order review: Laboratory Results 04/30/18 04/30/18 04/30/18 21:35 20:20 20:20 Sodium Potassium Chloride Carbon Dioxide Anion Gap BUN Creatinine Creat Clearance w eGFR Random Glucose Calcium Total Bilirubin AST ALT Alkaline Phosphatase Creatine Kinase 104 Troponin I < 0.03 Total Protein Albumin Urine Color Yellow Urine Appearance Clear Urine pH 5.0 Ur Specific [place] 1.025 Urine Protein Negative Urine Glucose (UA) Negative Urine Ketones Negative Urine Blood 2+ H Urine Nitrite Negative Urine Bilirubin Negative Urine Urobilinogen 0.2 Ur Leukocyte Esterase Trace H Urine RBC 5-10 Urine WBC 5-10 Urine Bacteria 1+ 04/30/18 20:20 Sodium 134 L Potassium 3.7 Chloride 101 Carbon Dioxide 28 Anion Gap 5 L BUN 17 Creatinine 0.8 Creat Clearance w eGFR > 60 Random Glucose 119 H D Calcium 8.7 Total Bilirubin 0.4 AST 19 D ALT 18 D Alkaline Phosphatase 59 Creatine Kinase Troponin I Total Protein 7.0 Albumin 3.6 Urine Color Urine Appearance Urine pH Ur Specific [place] Urine Protein Urine Glucose (UA) Urine Ketones Urine Blood Urine Nitrite Urine Bilirubin Urine Urobilinogen Ur Leukocyte Esterase Urine RBC Urine WBC Urine Bacteria 04/30/18 20:20 RBC 4.69 MCV 84.7 MCHC 32.3 RDW 14.8 MPV 9.9 Neutrophils % 68.5 Lymphocytes % 21.1 D Monocytes % 7.8 Eosinophils % 1.5 Basophils % 1.1 - RADIOLOGY Radiology Studies Ordered: Category Date Time Status CHEST X-RAY PORTABLE* [RAD] Stat Radiology 04/30/18 20:12 Taken Medical Decision Making <Lissa Chow - Last Filed: 04/30/18 22:25> <Will Mae I - Last Filed: 04/30/18 22:37> - Medical Decision Making 04/30/18 22:25 case was discussed with hospitalist at 22:25 (Lissa hCow) *DC/Admit/Observation/Transfer <Lissa Chow - Last Filed: 04/30/18 22:25> - Discharge Dispostion Decision to Admit order: Yes <Will Mae I - Last Filed: 04/30/18 22:37> Diagnosis at time of Disposition: Chest pain Qualifiers: Chest pain type: unspecified Qualified Code(s): R07.9 - Chest pain, unspecified - Discharge Dispostion Disposition: HOME Condition at time of disposition: Good - Referrals Referrals: Nicolas Reece MD [Primary Care Provider] - - Patient Instructions - Post Discharge Activity - Attestations Scribe Attestion: 04/30/18 21:01 Documentation prepared by Lissa Chow, acting as medical csr for Will Mae MD (Lissa Chow)
[2018-04-30 20:34] LABS: BASO % 1.1 % (0-2.0); EOS % 1.5 % (0-4.5); HEMATOCRIT 39.7 % (35.4-49); HEMOGLOBIN 12.8 GM/dl (11.7-16.9); LYMPH % 21.1 % (8-40); MCH 27.4 pg (25.7-33.7); MCHC 32.3 g/dl (32.0-35.9); MEAN CELL VOLUME 84.7 fl (80-96); MEAN PLT VOLUME 9.9 fl (7.5-11.1); MONO % 7.8 % (3.8-10.2); NEUT % 68.5 % (42.8-82.8); PLATELET COUNT 207 K/MM3 (134-434); RBC 4.69 M/mm3 (4.00-5.60); RDW 14.8 % (11.9-15.9); WHITE BLOOD COUNT 7.1 K/mm3 (4.0-10.8)
[2018-04-30 20:52] LABS: ALBUMIN 3.6 g/dl (3.5-5.0); ALK PHOS 59 U/L (32-92); ANION GAP 5 MMOL/L (8-16); BILIRUBIN,TOTAL 0.4 mg/dl (0.2-1.0); BLOOD UREA NITROGEN 17 mg/dl (7-18); CALCIUM 8.7 mg/dl (8.4-10.2); CHLORIDE 101 mmol/L (98-107); CO2 28 mmol/L (22-28); CREATININE 0.8 mg/dl (0.6-1.3); GLUCOSE,RANDOM 119 mg/dl (74-106); POTASSIUM 3.7 mmol/L (3.5-5.1); SGOT/AST 19 U/L (10-42); SGPT/ALT 18 U/L (10-40); SODIUM 134 mmol/L (136-145)
[2018-04-30 21:50] LABS: URINE APPEARANCE Clear; URINE BILIRUBIN Negative (NEGATIVE); URINE COLOR Yellow; URINE GLUCOSE (UA) Negative (NEGATIVE); URINE KETONE Negative (NEGATIVE); URINE LEUK ESTERASE TRACE (NEGATIVE); URINE NITRITE Negative (NEGATIVE); URINE PROTEIN Negative (NEGATIVE); URINE UROBILINOGEN 0.2 (0.2-1.0)
[2018-04-30 22:05] LABS: URINE BACTERIA 1+ /hpf (NEGATIVE)
[2018-04-30] MEDS ORDERED: NITROGLYCERIN SUBLINGUAL 1/200 0.3 MG BTL SL PRN (23:07)
[2018-04-30] MEDS ORDERED: ALPRAZolam 0.25 MG TABLET PO PRN (23:08)
[2018-04-30] MEDS ORDERED: ASPIRIN 81 MG CHEWABLE TABLETS PO ONE (23:08)
--- NOTE | 2018-04-30 23:22 | HP ---
CHIEF COMPLAINT: chest pain PCP: HISTORY OF PRESENT ILLNESS: 47 year old male, with a significant past medical history of HTN, HLD, stents x5 (last stent placement was 8 months ago), NIDDM, Thyroid Ca, and Castleman Disease c/o left chest pain which started around 2pm in afternoon when he was lifting boxes at work. Pain localized to left chest, pressure-like, nonradiating , 5/10 in intensity. Pain is now improved. Patient reports cardiac stents placed 8 months ago. ER course was notable for: (1) ekg (2) cxr (3) supplemental oxygen via [place] Recent Travel: denied PAST MEDICAL HISTORY: as above PAST SURGICAL HISTORY: 5 cardiac stents in total, most recent 8 months Social History: Smoking: no Alcohol: no Drugs: no Family History: CAD in father, sister Allergies green pepper Allergy (Severe, Verified 02/15/17 06:17) Difficulty Breathing No Known Drug Allergies Allergy (Unknown, Verified 02/15/17 06:17) PEPPER Allergy (Uncoded 02/15/17 06:17) [facility] HOME MEDICATIONS: Home Medications Medication Instructions Recorded Levothyroxine [Synthroid -] 300 mcg PO DAILY 08/21/14 Aspirin [Aspirin EC] 81 mg PO DAILY 12/30/14 Alprazolam [Xanax] 1 mg PO PRN PRN 09/27/15 Olmesartan Medoxomil [Benicar -] 20 mg PO HS 09/27/15 Sitagliptin Phosphate [Januvia] 100 mg PO DAILY 07/25/16 Oxycodone HCl/Acetaminophen 1 each PO PRN PRN 11/17/16 [Percocet 10-325 mg Tablet] Tramadol HCl 50 mg PO PRN PRN 11/17/16 Albuterol Sulfate Inhaler - 1 - 2 inh PO QID PRN #1 inhaler 01/24/17 [Ventolin HFA Inhaler -] Atorvastatin Ca [Lipitor] 80 mg PO HS 04/30/18 Clopidogrel Bisulfate [Plavix] 75 mg PO DAILY 04/30/18 REVIEW OF SYSTEMS CONSTITUTIONAL: Absent: fever, chills, diaphoresis, generalized weakness, malaise, loss of appetite, weight change HEENT: Absent: rhinorrhea, nasal congestion, throat pain, throat swelling, difficulty swallowing, mouth swelling, ear pain, eye pain, visual changes CARDIOVASCULAR: Absent: syncope, palpitations, irregular heart rate, lightheadedness, peripheral edema present- chest pain, RESPIRATORY: Absent: cough, shortness of breath, dyspnea with exertion, orthopnea, wheezing, stridor, hemoptysis GASTROINTESTINAL: Absent: abdominal pain, abdominal distension, nausea, vomiting, diarrhea, constipation, melena, hematochezia GENITOURINARY: Absent: dysuria, frequency, urgency, hesitancy, hematuria, flank pain, genital pain MUSCULOSKELETAL: Absent: myalgia, arthralgia, joint swelling, back pain, neck pain SKIN: Absent: rash, itching, pallor HEMATOLOGIC/IMMUNOLOGIC: Absent: easy bleeding, easy bruising, lymphadenopathy, frequent infections ENDOCRINE: Absent: unexplained weight gain, unexplained weight loss, heat intolerance, cold intolerance NEUROLOGIC: Absent: headache, focal weakness or paresthesias, dizziness, unsteady gait, seizure, mental status changes, bladder or bowel incontinence PSYCHIATRIC: Absent: anxiety, depression, suicidal or homicidal ideation, hallucinations. PHYSICAL EXAMINATION Vital Signs - 24 hr 04/30/18 04/30/18 18:58 20:36 Temperature 98.6 F Pulse Rate 94 H Pulse Rate [ 80 Apical] Respiratory 20 18 Rate Blood Pressure 150/88 Blood Pressure 126/69 [Right Arm] O2 Sat by Pulse 98 97 Oximetry (%) GENERAL: morbidly obese, nad HEAD: Normal with no signs of trauma. EYES: Pupils equal, round and reactive to light, extraocular movements intact, sclera anicteric, conjunctiva clear. No lid lag. EARS, NOSE, THROAT: Ears normal, nares patent, oropharynx clear without exudates. Moist mucous membranes. NECK: Normal range of motion, supple without lymphadenopathy, JVD, or masses. LUNGS: Breath sounds equal, clear to auscultation bilaterally. No wheezes, and no crackles. No accessory muscle use. HEART: Regular rate and rhythm, normal S1 and S2 without murmur, rub or gallop. ABDOMEN: Soft, nontender, not distended, normoactive bowel sounds, no guarding, no rebound, no masses. No hepatomegaly or splenomegaly. MUSCULOSKELETAL: Normal range of motion at all joints. No bony deformities or tenderness. No CVA tenderness. UPPER EXTREMITIES: 2+ pulses, warm, well-perfused. No cyanosis. No clubbing. No peripheral edema. LOWER EXTREMITIES: 2+ pulses, warm, well-perfused. No calf tenderness. No peripheral edema. NEUROLOGICAL: Cranial nerves II-XII intact. Normal speech. Normal gait. PSYCHIATRIC: Cooperative. Good eye contact. Appropriate mood and affect. SKIN: Warm, dry, normal turgor, no rashes or lesions noted, normal capillary refill. Laboratory Results - last 24 hr 04/30/18 04/30/18 04/30/18 20:20 20:20 20:20 WBC 7.1 RBC 4.69 Hgb 12.8 Hct 39.7 MCV 84.7 MCH 27.4 MCHC 32.3 RDW 14.8 Plt Count 207 MPV 9.9 Absolute Neuts (auto) 4.8 Neutrophils % 68.5 Lymphocytes % 21.1 D Monocytes % 7.8 Eosinophils % 1.5 Basophils % 1.1 Sodium 134 L Potassium 3.7 Chloride 101 Carbon Dioxide 28 Anion Gap 5 L BUN 17 Creatinine 0.8 Creat Clearance w eGFR > 60 Random Glucose 119 H D Calcium 8.7 Total Bilirubin 0.4 AST 19 D ALT 18 D Alkaline Phosphatase 59 Creatine Kinase Troponin I < 0.03 Total Protein 7.0 Albumin 3.6 Urine Color Urine Appearance Urine pH Ur Specific [place] Urine Protein Urine Glucose (UA) Urine Ketones Urine Blood Urine Nitrite Urine Bilirubin Urine Urobilinogen Ur Leukocyte Esterase Urine RBC Urine WBC Urine Bacteria 04/30/18 04/30/18 20:20 21:35 WBC RBC Hgb Hct MCV MCH MCHC RDW Plt Count MPV Absolute Neuts (auto) Neutrophils % Lymphocytes % Monocytes % Eosinophils % Basophils % Sodium Potassium Chloride Carbon Dioxide Anion Gap BUN Creatinine Creat Clearance w eGFR Random Glucose Calcium Total Bilirubin AST ALT Alkaline Phosphatase Creatine Kinase 104 Troponin I Total Protein Albumin Urine Color Yellow Urine Appearance Clear Urine pH 5.0 Ur Specific [place] 1.025 Urine Protein Negative Urine Glucose (UA) Negative Urine Ketones Negative Urine Blood 2+ H Urine Nitrite Negative Urine Bilirubin Negative Urine Urobilinogen 0.2 Ur Leukocyte Esterase Trace H Urine RBC 5-10 Urine WBC 5-10 Urine Bacteria 1+ Imaging reviewed- CXR c/w enlarged left mediastinal lymph nodes ASSESSMENT/PLAN: #Chest pain in high risk patient. Differential diagnosis includes angina, ACS, costochondritis. EKG did not show signs of acute ischemic cardiac changes. Troponin was negative x2. -tele-observation -trend troponin -monitor VS closely -cardiac consult -oxygen via nasal cannula -NGL sublingual PRN if chest pain -c/w ASA, clopidogrel -c/w high dose statin -echo #DM - uncontrolled -send a1c -novolog sliding scale -diabetic diet #Mediastinal lymphadenopathy -likely c/w documented history of castleman disease - stable -consider chest CT for further evaluation #DVT ppx -heparin sc Visit type - Emergency Visit Emergency Visit: Yes ED Registration Date: 04/30/18 Care time: The patient presented to the Emergency Department on the above date and was hospitalized for further evaluation of their emergent condition. - New Patient This patient is new to me today: Yes Date on this admission: 05/01/18 - Critical Care Critical Care patient: No
[2018-04-30] MEDS ORDERED: ACETAMINOPHEN 325 MG TABLET (FP) PO PRN (23:39)
[2018-04-30] MEDS ORDERED: oxyCODONE HCL 5 MG TABLET PO PRN (23:39)
[2018-05-01 01:25] VITALS: BMI 45.9
[2018-05-01] MEDS ORDERED: LEVOTHYROXINE NA 150 MCG TABLET PO SCH (07:00)
[2018-05-01 08:35] LABS: HEMATOCRIT 39.5 % (35.4-49); HEMOGLOBIN 12.6 GM/dl (11.7-16.9); MCH 27.2 pg (25.7-33.7); MCHC 31.9 g/dl (32.0-35.9); MEAN CELL VOLUME 85.4 fl (80-96); MEAN PLT VOLUME 10.4 fl (7.5-11.1); PLATELET COUNT 180 K/MM3 (134-434); RBC 4.62 M/mm3 (4.00-5.60); RDW 14.9 % (11.9-15.9); WHITE BLOOD COUNT 6.4 K/mm3 (4.0-10.8)
--- NOTE | 2018-05-01 08:36 | EKG ---
Test Reason : Blood Pressure : / mmHG Vent. Rate : 090 BPM Atrial Rate : 090 BPM P-R Int : 152 ms QRS Dur : 090 ms QT Int : 384 ms P-R-T Axes : 019 -08 009 degrees QTc Int : 469 ms SINUS RHYTHM WITH PREMATURE ATRIAL COMPLEXES OTHERWISE NORMAL ECG WHEN COMPARED WITH ECG OF 23-JAN-2017 01:30, PREMATURE ATRIAL COMPLEXES ARE NOW PRESENT Confirmed by EBER BONNER, ANCELMO ([id number]) on 05/01/2018 8:36:47 AM Referred By: DR QUINTANILLA Confirmed By:ANCELMO VELÁZQUEZ MD
[2018-05-01 08:44] LABS: ANION GAP 8 MMOL/L (8-16); BLOOD UREA NITROGEN 16 mg/dl (7-18); CALCIUM 8.4 mg/dl (8.4-10.2); CHLORIDE 99 mmol/L (98-107); CO2 29 mmol/L (22-28); CREATININE 0.9 mg/dl (0.6-1.3); GLUCOSE,RANDOM 128 mg/dl (74-106); SODIUM 136 mmol/L (136-145)
[2018-05-01] MEDS ORDERED: FLU VACCINE QUAD 60 MCG/0.5 ML (MDV 18-19) IM ONE (10:00)
[2018-05-01] MEDS ORDERED: CLOPIDOGREL BISULFATE 75 MG TABLET (FP) PO SCH (10:00)
[2018-05-01] MEDS ORDERED: ASPIRIN COATED 81 MG TABLET.EC PO SCH (10:00)
[2018-05-01] MEDS ORDERED: HEPARIN NA (PORCINE) 5,000 UNITS/ML 1ML VIAL SQ SCH (10:00)
--- NOTE | 2018-05-01 10:35 | CON.CARD ---
Consult Consult Specialty:: Cardiology - History of Present Illness History of Present Illness: 47 year old male, with a significant past medical history of HTN, HLD, stents x5 (last stent placement was 8 months ago), NIDDM, Thyroid Ca, and Castleman Disease c/o left chest pain which started around 2pm in afternoon when he was lifting boxes at work. Pain localized to left chest, pressure-like, nonradiating , 5/10 in intensity. Pain is now improved. Patient reports cardiac stents placed 8 months ago. Diabetes Morbid obesity HTN hyperlipidemia thyroid disease CA (?lymphoma) diastolic CHF CAD-->coronary stent ([facility]) BPH - Past Medical History Cardio/Vascular: Yes: CAD (s/p PCI stent August 2012), HTN, Hyperlipdemia. No: AFIB, Aneurysm, Aortic Insufficiency, Aortic Stenosis, CHF, Deep Vein Thrombosis , AL, Mitral Insufficiency, Mitral Stenosis, Murmur, Pulmonary Hypertension, Other Pulmonary: Yes: Sleep Apnea. No: Asthma, Bronchitis, Cancer, COPD, O2 Dependent , Pneumonia, Previously Intubated, Pulmonary Embolus, Pulmonary Fibrosis, Other Gastrointestinal: Yes: GERD. No: Ascites, Cancer, Constipation, Crohn's Disease , Diverticulitis, Diverticulosis, Esophageal Varices, Gastritis, GI Bleed, Hemorrhoids, Hiatal Hernia, Inflamatory Bowel Disease, Irritable Bowel Disease, Pancreatitis, Peptic Ulcer Disease, Ulcerative Colitis, Other Infectious Disease: Yes: MRSA. No: AIDS, C-Diff, Herpes Zoster, HIV, STD's, Tuberculosis, VREF, Other Psych: Yes: Anxiety. No: Addictions, Bipolar, Depression, Panic, Psychosis, Schizophrenia, Other Endocrine: Yes: Hypothyroidism. No: Bertie's Disease, Louis's Disease, Diabetes Insipidus, Diabetes Mellitus, Hyperparathyroidism, Hyperthyroidism, Osteopenia, SIADH, Other Additional Medical History: thyroid papillary cancer resected at [facility] - Past Surgical History Past Surgical History: Yes: Stent, Arthrosocopy - Alcohol/Substance Use Hx Alcohol Use: No - Smoking History Smoking history: Never smoked Have you smoked in the past 12 months: No Aproximately how many cigarettes per day: 0 Home Medications - Allergies Allergies/Adverse Reactions: Allergies Allergy/AdvReac Type Severity Reaction Status Date / Time green pepper Allergy Severe Difficulty Verified 02/15/17 06:17 Breathing No Known Drug Allergies Allergy Unknown Verified 02/15/17 06:17 PEPPER Allergy Uncoded 02/15/17 06:17 - Home Medications Home Medications: Ambulatory Orders Levothyroxine [Synthroid -] 300 mcg PO DAILY 08/21/14 Aspirin [Aspirin EC] 81 mg PO DAILY 12/30/14 Alprazolam [Xanax] 1 mg PO PRN PRN 09/27/15 Olmesartan Medoxomil [Benicar -] 20 mg PO HS 09/27/15 Sitagliptin Phosphate [Januvia] 100 mg PO DAILY 07/25/16 Oxycodone HCl/Acetaminophen [Percocet 10-325 mg Tablet] 1 each PO PRN PRN Tramadol HCl 50 mg PO PRN PRN 11/17/16 Albuterol Sulfate Inhaler - [Ventolin HFA Inhaler -] 1 - 2 inh PO QID PRN #1 inhaler 01/24/17 Atorvastatin Ca [Lipitor] 80 mg PO HS 04/30/18 Clopidogrel Bisulfate [Plavix] 75 mg PO DAILY 04/30/18 Review of Systems - Review of Systems Constitutional: reports: No Symptoms Eyes: reports: No Symptoms HENT: reports: No Symptoms Neck: reports: No Symptoms Cardiovascular: reports: Chest Pain Gastrointestinal: reports: No Symptoms Genitourinary: reports: No Symptoms Breasts: reports: No Symptoms Reported Musculoskeletal: reports: No Symptoms Integumentary: reports: No Symptoms Neurological: reports: No Symptoms Endocrine: reports: No Symptoms Hematology/Lymphatic: reports: No Symptoms Psychiatric: reports: No Symptoms Vital Signs: Vital Signs Temperature 98 F 05/01/18 06:00 Pulse Rate 74 05/01/18 06:00 Respiratory Rate 18 05/01/18 08:40 Blood Pressure 112/68 05/01/18 06:00 O2 Sat by Pulse Oximetry (%) 98 05/01/18 08:40 Constitutional: Yes: Well Nourished, No Distress, Calm Eyes: Yes: WNL, Conjunctiva Clear, EOM Intact HENT: Yes: WNL, Atraumatic, Normocephalic Neck: Yes: WNL, Supple, Trachea Midline Respiratory: Yes: WNL, Regular, CTA Bilaterally Gastrointestinal: Yes: WNL, Normal Bowel Sounds Renal/: Yes: WNL Cardiovascular: Yes: WNL, Regular Rate and Rhythm Heart Sounds: Yes: S1, S2 Musculoskeletal: Yes: WNL Extremities: Yes: WNL Integumentary: Yes: WNL Neurological: Yes: WNL, Alert, Oriented ...Motor Strength: WNL Psychiatric: Yes: WNL, Alert, Oriented - Other Data Labs, Other Data: CBC, BMP 05/01/18 06:45 05/01/18 06:45 Troponin, BNP 04/30/18 05/01/18 05/01/18 20:20 01:30 06:45 Troponin I < 0.03 < 0.02 Cancelled 05/01/18 06:45 Troponin I < 0.03 Troponin, BNP 04/30/18 05/01/18 05/01/18 20:20 01:30 06:45 Troponin I < 0.03 < 0.02 Cancelled 05/01/18 06:45 Troponin I < 0.03 Imaging - Results Chest X-ray: Pending EKG: Image Reviewed (sr apcs) Problem List - Problems (1) Chest pain Code(s): R07.9 - CHEST PAIN, UNSPECIFIED Qualifiers: Chest pain type: unspecified Qualified Code(s): R07.9 - Chest pain, unspecified (2) Abdominal pain Code(s): R10.9 - UNSPECIFIED ABDOMINAL PAIN (3) Abdominal pain in male Code(s): R10.9 - UNSPECIFIED ABDOMINAL PAIN (4) Abdominal wall pain Code(s): R10.9 - UNSPECIFIED ABDOMINAL PAIN (5) Acute intractable headache Code(s): R51 - HEADACHE (6) Acute renal failure (ARF) Code(s): N17.9 - ACUTE KIDNEY FAILURE, UNSPECIFIED (7) Acute viral labyrinthitis Code(s): H83.09 - LABYRINTHITIS, UNSPECIFIED EAR (8) Bronchitis Code(s): J40 - BRONCHITIS, NOT SPECIFIED ACUTE OR CHRONIC (9) CAD (coronary artery disease) Code(s): I25.10 - ATHSCL HEART DISEASE OF [place] CORONARY ARTERY W/O ANG PCTRS (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, multiple Code(s): 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.7 - DISORDERS OF MULTIPLE CRANIAL NERVES (11) Diabetes Code(s): E11.9 - TYPE 2 DIABETES MELLITUS WITHOUT COMPLICATIONS (12) Gastritis Code(s): K29.70 - GASTRITIS, UNSPECIFIED, WITHOUT BLEEDING Qualifiers: Gastritis type: unspecified gastritis Chronicity: acute Gastritis bleeding: without bleeding Qualified Code(s): K29.00 - Acute gastritis without bleeding (13) HTN (hypertension) Code(s): I10 - ESSENTIAL (PRIMARY) HYPERTENSION Qualifiers: Hypertension type: essential hypertension Qualified Code(s): I10 - Essential (primary) hypertension (14) Hematuria Code(s): R31.9 - HEMATURIA, UNSPECIFIED (15) Hilar mass Code(s): R91.8 - OTHER NONSPECIFIC ABNORMAL FINDING OF LUNG FIELD (16) Hydronephrosis of right kidney Code(s): N13.30 - UNSPECIFIED HYDRONEPHROSIS (17) Hypertriglyceridemia Code(s): E78.1 - PURE HYPERGLYCERIDEMIA (18) Hypothyroidism (acquired) Code(s): E03.9 - HYPOTHYROIDISM, UNSPECIFIED (19) Jaw pain Code(s): R68.84 - JAW PAIN (20) Morbidly obese Code(s): E66.01 - MORBID (SEVERE) OBESITY DUE TO EXCESS CALORIES (21) Nasal congestion Code(s): R09.81 - NASAL CONGESTION (22) Obesity Code(s): E66.9 - OBESITY, UNSPECIFIED (23) Peripheral vertigo Code(s): H81.399 - OTHER PERIPHERAL VERTIGO, UNSPECIFIED EAR (24) Pharyngitis Code(s): J02.9 - ACUTE PHARYNGITIS, UNSPECIFIED (25) Presence of stent in coronary artery Code(s): Z95.5 - PRESENCE OF CORONARY ANGIOPLASTY IMPLANT AND GRAFT (26) Renal colic on right side Code(s): N23 - UNSPECIFIED RENAL COLIC (27) Rib pain on left side Code(s): R07.81 - PLEURODYNIA (28) Rib pain on right side Code(s): R07.81 - PLEURODYNIA (29) Stomach discomfort Code(s): R10.9 - UNSPECIFIED ABDOMINAL PAIN (30) UTI (urinary tract infection) Code(s): N39.0 - URINARY TRACT INFECTION, SITE NOT SPECIFIED Qualifiers: Urinary tract infection type: site unspecified Hematuria presence: without hematuria Qualified Code(s): N39.0 - Urinary tract infection, site not specified Assessment/Plan cp sx -tnis neg Diabetes Morbid obesity HTN hyperlipidemia thyroid disease CA (?lymphoma) diastolic CHF CAD-->coronary stent ([facility]) BPH Plan cont telemetry cont bb asa will need a stress tets for risk stratification
[2018-05-01] MEDS ORDERED: METOPROLOL TARTRATE 25 MG TABLET (FP) PO SCH (12:00)
--- NOTE | 2018-05-01 12:24 | PN ---
Physical Exam: SUBJECTIVE: Patient seen and examined. Pt. states " I feel much better and do not have any chest pain." OBJECTIVE: Vital Signs Period Temp Pulse Resp BP Sys/Alva Pulse Ox Last 24 Hr 97.9 F-98.6 F 73-94 18-20 107-150/64-88 97-99 GENERAL: The patient is awake, alert, and fully oriented, in no acute distress. HEAD: Normal with no signs of trauma. EYES: PERRL, extraocular movements intact, sclera anicteric, conjunctiva clear. No ptosis. ENT: Ears normal, moist mucous membranes. NECK: Trachea midline, full range of motion, supple. LUNGS: Breath sounds equal, clear to auscultation bilaterally, no wheezes, no crackles, no accessory muscle use. HEART: Regular rate and rhythm, S1, S2 without murmur ABDOMEN: Soft, obese, nontender, nondistended, normoactive bowel sounds, no guarding, no rebound EXTREMITIES: 2+ pulses, warm, well-perfused, no edema. NEUROLOGICAL: Cranial nerves II through XII grossly intact. Normal speech, gait not observed. PSYCH: Normal mood, normal affect. SKIN: Warm, dry, normal turgor, no rashes or lesions noted Laboratory Results - last 24 hr 04/30/18 04/30/18 04/30/18 20:20 20:20 20:20 WBC 7.1 RBC 4.69 Hgb 12.8 Hct 39.7 MCV 84.7 MCH 27.4 MCHC 32.3 RDW 14.8 Plt Count 207 MPV 9.9 Absolute Neuts (auto) 4.8 Neutrophils % 68.5 Lymphocytes % 21.1 D Monocytes % 7.8 Eosinophils % 1.5 Basophils % 1.1 Sodium 134 L Potassium 3.7 Chloride 101 Carbon Dioxide 28 Anion Gap 5 L BUN 17 Creatinine 0.8 Creat Clearance w eGFR > 60 Random Glucose 119 H D Calcium 8.7 Total Bilirubin 0.4 AST 19 D ALT 18 D Alkaline Phosphatase 59 Creatine Kinase Troponin I < 0.03 Total Protein 7.0 Albumin 3.6 TSH Urine Color Urine Appearance Urine pH Ur Specific [place] Urine Protein Urine Glucose (UA) Urine Ketones Urine Blood Urine Nitrite Urine Bilirubin Urine Urobilinogen Ur Leukocyte Esterase Urine RBC Urine WBC Urine Bacteria 01/11/19 01/11/19 01/12/19 20:20 21:35 01:30 WBC RBC Hgb Hct MCV MCH MCHC RDW Plt Count MPV Absolute Neuts (auto) Neutrophils % Lymphocytes % Monocytes % Eosinophils % Basophils % Sodium Potassium Chloride Carbon Dioxide Anion Gap BUN Creatinine Creat Clearance w eGFR Random Glucose Calcium Total Bilirubin AST ALT Alkaline Phosphatase Creatine Kinase 104 97 Troponin I < 0.02 Total Protein Albumin TSH Urine Color Yellow Urine Appearance Clear Urine pH 5.0 Ur Specific [place] 1.025 Urine Protein Negative Urine Glucose (UA) Negative Urine Ketones Negative Urine Blood 2+ H Urine Nitrite Negative Urine Bilirubin Negative Urine Urobilinogen 0.2 Ur Leukocyte Esterase Trace H Urine RBC 5-10 Urine WBC 5-10 Urine Bacteria 1+ 05/01/18 05/01/18 05/01/18 06:45 06:45 06:45 WBC 6.4 RBC 4.62 Hgb 12.6 Hct 39.5 MCV 85.4 MCH 27.2 MCHC 31.9 L RDW 14.9 Plt Count 180 MPV 10.4 Absolute Neuts (auto) Neutrophils % Lymphocytes % Monocytes % Eosinophils % Basophils % Sodium 136 Potassium 4.0 Chloride 99 Carbon Dioxide 29 H Anion Gap 8 BUN 16 Creatinine 0.9 Creat Clearance w eGFR > 60 Random Glucose 128 H Calcium 8.4 Total Bilirubin AST ALT Alkaline Phosphatase Creatine Kinase Troponin I Cancelled < 0.03 Total Protein Albumin TSH 0.01 L D Urine Color Urine Appearance Urine pH Ur Specific [place] Urine Protein Urine Glucose (UA) Urine Ketones Urine Blood Urine Nitrite Urine Bilirubin Urine Urobilinogen Ur Leukocyte Esterase Urine RBC Urine WBC Urine Bacteria 05/01/18 06:45 WBC RBC Hgb Hct MCV MCH MCHC RDW Plt Count MPV Absolute Neuts (auto) Neutrophils % Lymphocytes % Monocytes % Eosinophils % Basophils % Sodium Potassium Chloride Carbon Dioxide Anion Gap BUN Creatinine Creat Clearance w eGFR Random Glucose Calcium Total Bilirubin AST ALT Alkaline Phosphatase Creatine Kinase 83 Troponin I Total Protein Albumin TSH Urine Color Urine Appearance Urine pH Ur Specific [place] Urine Protein Urine Glucose (UA) Urine Ketones Urine Blood Urine Nitrite Urine Bilirubin Urine Urobilinogen Ur Leukocyte Esterase Urine RBC Urine WBC Urine Bacteria Active Medications Generic Name Dose Route Start Last Admin Trade Name Freq PRN Reason Stop Dose Admin Acetaminophen 325 mg 04/30/18 23:39 Tylenol - PO Q6H PRN PAIN LEVEL 6-10 Alprazolam 1 mg 04/30/18 23:08 Xanax - PO Q8H PRN ANXIETY Aspirin 81 mg 05/01/18 10:00 05/01/18 10:21 Ecotrin - PO 81 mg DAILY [facility] Administration Atorvastatin Calcium 80 mg 05/01/18 22:00 Lipitor - PO HS [facility] Clopidogrel Bisulfate 75 mg 05/01/18 10:00 05/01/18 10:21 Plavix - PO 75 mg DAILY [facility] Administration Heparin Sodium (Porcine) 5,000 unit 05/01/18 10:00 05/01/18 10:21 Heparin - SQ 5,000 unit BID RYANN Administration Insulin Aspart 1 vial 05/01/18 07:00 Novolog Vial Sliding Scale - SQ ACHS [facility] Protocol Levothyroxine Sodium 300 mcg 05/01/18 07:00 05/01/18 10:21 Synthroid - PO 300 mcg DAILY@0700 [facility] Administration Metoprolol Tartrate 0 mg 05/01/18 12:00 Lopressor - PO DAILY [facility] Nitroglycerin 0.3 mg 04/30/18 23:07 Nitrostat - SL Q5M PRN FOR CHEST PAIN Oxycodone HCl 10 mg 04/30/18 23:39 Roxicodone - PO Q6H PRN PAIN LEVEL 6-10 Valsartan 160 mg 05/01/18 22:00 Diovan - PO HS [facility] 47 year old male, with a significant past medical history of HTN, HLD, stents x5 (last stent placement was 8 months ago), NIDDM, Thyroid CA,S/P Thyroid resection, and Castleman Disease c/o left chest pressure when he was lifting boxes at work. Pain localized to left chest, pressure-like, non-radiating, 5-6/ 10 in intensity. ASSESSMENT/PLAN: 1. Chest pain in high risk patient --EKG NSR with PAC. --troponin negative X 3 (.02, .03, .03) --tele-observation --monitor VS closely --cardiac consult: Dr. Antunez attended and recommend transfer to [facility] for continuation in care --oxygen via nasal cannula --NGL sublingual PRN if chest pain --ASA, clopidogrel -- high dose statin --echo --stress test --add metoprolol 12.5 mg po BID 2. DM --novolog sliding scale --diabetic diet 3. H/O Thyroid cancer --s/p resection at [facility] --TSH .1 --synthroid dosage reduced to 200 mcg po daily 4. Hypertension --controlled , blood pressure range wnl --continue diovan --metoprolol added per cardiology 5. Hyperlipidemia --continue with ASA --continue on plavix --continue on high dose statin (lipitor 80 mg. po daily) 6. Castlemans Disease --CXR prominent mediastinum and mediastinal clips --continue outpt. monitoring 7. DVT ppx --heparin sc 8. FEN --diabetic diet --electrolyte replete as needed Visit type - Emergency Visit Emergency Visit: Yes ED Registration Date: 04/30/18 Care time: The patient presented to the Emergency Department on the above date and was hospitalized for further evaluation of their emergent condition. - New Patient This patient is new to me today: Yes Date on this admission: 05/04/18 - Critical Care Critical Care patient: No - Discharge Referral Referred to [facility] Med P.C.: No
[2018-05-01] MEDS: INSULIN SLIDING SCALE (NOVOLOG) 1 VIAL SQ SCH ×2 (14:07→17:26)
[2018-05-01] MEDS: METOPROLOL TARTRATE 25 MG TABLET (FP) PO SCH ×2 (14:24→21:53)
--- NOTE | 2018-05-01 18:29 | HOSP ---
Physical Examination Vital Signs: Vital Signs Temperature 98.3 F 05/01/18 14:00 Pulse Rate 84 05/01/18 14:00 Respiratory Rate 17 05/01/18 14:00 Blood Pressure 109/83 05/01/18 14:00 O2 Sat by Pulse Oximetry (%) 97 05/01/18 17:00 Respiratory: Yes: Diminished Labs: CBC, BMP 05/01/18 06:45 05/01/18 06:45 Hospitalist Encounter Assessment: patient transferred from [facility] patient arrived to room 417b comfortable at rest, watching TV wants to shower no chest pain, no shortness of breath monitor on tele
[2018-05-01] MEDS ORDERED: VALSARTAN 160 MG TABLET (UD) PO SCH (22:00)
[2018-05-01] MEDS ORDERED: ATORVASTATIN CA 80 MG TABLET (FP) PO SCH (22:00)
[2018-05-02] MEDS ORDERED: LEVOTHYROXINE NA 100 MCG TABLET (FP) PO SCH (07:00)
[2018-05-02] MEDS ORDERED: LEVOTHYROXINE NA 150 MCG TABLET PO SCH (07:00)
--- NOTE | 2018-05-02 08:58 | PN ---
Progress Note, Physician History of Present Illness: 47 year old male, with a significant past medical history of HTN, HLD, stents x5 (last stent placement was 8 months ago), NIDDM, Thyroid Ca, and Castleman Disease c/o left chest pain which started around 2pm in afternoon when he was lifting boxes at work. Pain localized to left chest, pressure-like, nonradiating , 5/10 in intensity. Pain is now improved. Patient reports cardiac stents placed 8 months ago. Diabetes Morbid obesity HTN hyperlipidemia thyroid disease CA (?lymphoma) diastolic CHF CAD-->coronary stent ([facility]) BPH - Current Medication List Current Medications: Active Medications Levothyroxine Sodium (Synthroid -) 200 mcg PO DAILY@0700 [facility] Last Admin: 05/02/18 06:47 Dose: 200 mcg Metoprolol Tartrate (Lopressor -) 12.5 mg PO BID [facility] Last Admin: 05/01/18 21:53 Dose: 12.5 mg - Objective Vital Signs: Vital Signs Temperature 97.8 F 05/02/18 05:50 Pulse Rate 75 05/02/18 05:50 Respiratory Rate 18 05/02/18 05:50 Blood Pressure 106/54 L 05/02/18 05:50 O2 Sat by Pulse Oximetry (%) 98 05/02/18 05:47 Eyes: Yes: WNL, Conjunctiva Clear, EOM Intact HENT: Yes: WNL, Atraumatic, Normocephalic Neck: Yes: WNL, Supple, Trachea Midline Cardiovascular: Yes: WNL, Regular Rate and Rhythm Respiratory: Yes: WNL, Regular, CTA Bilaterally Gastrointestinal: Yes: WNL, Normal Bowel Sounds Genitourinary: Yes: WNL Musculoskeletal: Yes: WNL Extremities: Yes: WNL Edema: No Integumentary: Yes: WNL Neurological: Yes: WNL, Alert, Oriented ...Motor Strength: WNL Psychiatric: Yes: WNL Labs: CBC, BMP 05/01/18 06:45 05/01/18 06:45 Problem List - Problems (1) Chest pain Code(s): R07.9 - CHEST PAIN, UNSPECIFIED Qualifiers: Chest pain type: unspecified Qualified Code(s): R07.9 - Chest pain, unspecified (2) Abdominal pain Code(s): R10.9 - UNSPECIFIED ABDOMINAL PAIN (3) Abdominal pain in male Code(s): R10.9 - UNSPECIFIED ABDOMINAL PAIN (4) Abdominal wall pain Code(s): R10.9 - UNSPECIFIED ABDOMINAL PAIN (5) Acute intractable headache Code(s): R51 - HEADACHE (6) Acute renal failure (ARF) Code(s): N17.9 - ACUTE KIDNEY FAILURE, UNSPECIFIED (7) Acute viral labyrinthitis Code(s): H83.09 - LABYRINTHITIS, UNSPECIFIED EAR (8) Bronchitis Code(s): J40 - BRONCHITIS, NOT SPECIFIED ACUTE OR CHRONIC (9) CAD (coronary artery disease) Code(s): I25.10 - ATHSCL HEART DISEASE OF [place] CORONARY ARTERY W/O ANG PCTRS (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, multiple Code(s): G52.7 - DISORDERS OF MULTIPLE CRANIAL NERVES (11) Diabetes Code(s): E11.9 - TYPE 2 DIABETES MELLITUS WITHOUT COMPLICATIONS (12) Gastritis Code(s): K29.70 - GASTRITIS, UNSPECIFIED, WITHOUT BLEEDING Qualifiers: Gastritis type: unspecified gastritis Chronicity: acute Gastritis bleeding: without bleeding Qualified Code(s): K29.00 - Acute gastritis without bleeding (13) HTN (hypertension) Code(s): I10 - ESSENTIAL (PRIMARY) HYPERTENSION Qualifiers: Hypertension type: essential hypertension Qualified Code(s): I10 - Essential (primary) hypertension (14) Hematuria Code(s): R31.9 - HEMATURIA, UNSPECIFIED (15) Hilar mass Code(s): R91.8 - OTHER NONSPECIFIC ABNORMAL FINDING OF LUNG FIELD (16) Hydronephrosis of right kidney Code(s): N13.30 - UNSPECIFIED HYDRONEPHROSIS (17) Hypertriglyceridemia Code(s): E78.1 - PURE HYPERGLYCERIDEMIA (18) Hypothyroidism (acquired) Code(s): E03.9 - HYPOTHYROIDISM, UNSPECIFIED (19) Jaw pain Code(s): R68.84 - JAW PAIN (20) Morbidly obese Code(s): E66.01 - MORBID (SEVERE) OBESITY DUE TO EXCESS CALORIES (21) Nasal congestion Code(s): R09.81 - NASAL CONGESTION (22) Obesity Code(s): E66.9 - OBESITY, UNSPECIFIED (23) Peripheral vertigo Code(s): H81.399 - OTHER PERIPHERAL VERTIGO, UNSPECIFIED EAR (24) Pharyngitis Code(s): J02.9 - ACUTE PHARYNGITIS, UNSPECIFIED (25) Presence of stent in coronary artery Code(s): Z95.5 - PRESENCE OF CORONARY ANGIOPLASTY IMPLANT AND GRAFT (26) Renal colic on right side Code(s): N23 - UNSPECIFIED RENAL COLIC (27) Rib pain on left side Code(s): R07.81 - PLEURODYNIA (28) Rib pain on right side Code(s): R07.81 - PLEURODYNIA (29) Stomach discomfort Code(s): R10.9 - UNSPECIFIED ABDOMINAL PAIN (30) UTI (urinary tract infection) Code(s): N39.0 - URINARY TRACT INFECTION, SITE NOT SPECIFIED Qualifiers: Urinary tract infection type: site unspecified Hematuria presence: without hematuria Qualified Code(s): N39.0 - Urinary tract infection, site not specified Assessment/Plan cp sx ? atypical after lifting boxes. -tnis neg Diabetes Morbid obesity HTN hyperlipidemia thyroid disease CA (?lymphoma) diastolic CHF [facility] BPH Plan if ekg and tnis neg this am will d/c home and stress in am as outp. [address] Mercer office
[2018-05-02] MEDS: METOPROLOL TARTRATE 25 MG TABLET (FP) PO SCH (09:22)
--- NOTE | 2018-05-02 09:25 | EKG ---
Test Reason : Blood Pressure : / mmHG Vent. Rate : 075 BPM Atrial Rate : 075 BPM P-R Int : 178 ms QRS Dur : 094 ms QT Int : 392 ms P-R-T Axes : 028 -15 006 degrees QTc Int : 437 ms SINUS RHYTHM WITH PREMATURE ATRIAL COMPLEXES OTHERWISE NORMAL ECG WHEN COMPARED WITH ECG OF 30-APR-2018 19:13, NO SIGNIFICANT CHANGE WAS FOUND Confirmed by EBER BONNER, ANCELMO ([id number]) on 05/02/2018 9:25:22 AM Referred By: Fay SALVADOR Confirmed By:ANCELMO VELÁZQUEZ MD
[2018-05-02] MEDS ORDERED: CLOPIDOGREL BISULFATE 75 MG TABLET (FP) PO SCH (10:00)
[2018-05-02] MEDS ORDERED: ASPIRIN COATED 81 MG TABLET.EC PO SCH (10:00)
--- NOTE | 2018-05-02 10:47 | DS ---
Physical Exam: SUBJECTIVE: Patient seen and examined OBJECTIVE: Vital Signs Period Temp Pulse Resp BP Sys/Alva Pulse Ox Last 24 Hr 97.8 F-98.3 F 75-85 17-18 102-124/54-83 97-98 PHYSICAL EXAM GENERAL: The patient is awake, alert, and fully oriented, in no acute distress. HEAD: Normal with no signs of trauma. EYES: PERRL, extraocular movements intact, sclera anicteric, conjunctiva clear. ENT: Ears normal, nares patent, oropharynx clear without exudates, moist mucous membranes. NECK: Trachea midline, full range of motion, supple. LUNGS: Breath sounds equal, clear to auscultation bilaterally, no wheezes, no crackles, no accessory muscle use. HEART: Regular rate and rhythm, S1, S2 without murmur, rub or gallop. ABDOMEN: Soft, nontender, nondistended, normoactive bowel sounds, no guarding, no rebound, no hepatosplenomegaly, no masses. EXTREMITIES: 2+ pulses, warm, well-perfused, no edema. NEUROLOGICAL: Cranial nerves II through XII grossly intact. Normal speech, gait not observed. PSYCH: Normal mood, normal affect. SKIN: Warm, dry, normal turgor, no rashes or lesions noted. LABS Laboratory Results - last 24 hr 05/01/18 05/01/18 05/01/18 06:45 12:42 16:36 POC Glucometer 153 108 Creatine Kinase Troponin I TSH 0.01 L D 05/02/18 08:30 POC Glucometer Creatine Kinase 80 Troponin I < 0.02 TSH HOSPITAL COURSE: Date of Admission:04/30/18 Date of Discharge: 05/02/18 Discharge Summary Reason For Visit: CHEST PAIN, R/O ACS Current Active Problems Chest pain (Acute) Condition: Good - Instructions Referrals: Nicolas Reece MD [Primary Care Provider] - - Home Medications Comprehensive Discharge Medication List: Ambulatory Orders Levothyroxine [Synthroid -] 300 mcg PO DAILY 08/21/14 Aspirin [Aspirin EC] 81 mg PO DAILY 12/30/14 Alprazolam [Xanax] 1 mg PO PRN PRN 09/27/15 Olmesartan Medoxomil [Benicar -] 20 mg PO HS 09/27/15 Sitagliptin Phosphate [Januvia] 100 mg PO DAILY 07/25/16 Oxycodone HCl/Acetaminophen [Percocet 10-325 mg Tablet] 1 each PO PRN PRN Tramadol HCl 50 mg PO PRN PRN 11/17/16 Albuterol Sulfate Inhaler - [Ventolin HFA Inhaler -] 1 - 2 inh PO QID PRN #1 inhaler 01/24/17 Atorvastatin Ca [Lipitor] 80 mg PO HS 04/30/18 Clopidogrel Bisulfate [Plavix] 75 mg PO DAILY 04/30/18
[2018-05-02 11:57] VITALS: BP 102/77; PULSE 74; TEMP 98
[2018-05-02] MEDS ORDERED: METOPROLOL TARTRATE 25 MG TABLET (FP) PO SCH (14:15)
--- NOTE | 2018-05-02 17:33 | DS ---
Physical Exam: SUBJECTIVE: Patient seen and examined OBJECTIVE: Vital Signs Period Temp Pulse Resp BP Sys/Alva Pulse Ox Last 24 Hr 97.8 F-98.1 F 74-85 18-18 102-124/54-77 98-98 PHYSICAL EXAM GENERAL: The patient is awake, alert, and fully oriented, in no acute distress. HEAD: Normal with no signs of trauma. EYES: PERRL, extraocular movements intact, sclera anicteric, conjunctiva clear. ENT: Ears normal, nares patent, oropharynx clear without exudates, moist mucous membranes. NECK: Trachea midline, full range of motion, supple. LUNGS: Breath sounds equal, clear to auscultation bilaterally, no wheezes, no crackles, no accessory muscle use. HEART: Regular rate and rhythm, S1, S2 without murmur, rub or gallop. ABDOMEN: Soft, nontender, nondistended, normoactive bowel sounds, no guarding, no rebound, no hepatosplenomegaly, no masses. EXTREMITIES: 2+ pulses, warm, well-perfused, no edema. NEUROLOGICAL: Cranial nerves II through XII grossly intact. Normal speech, gait not observed. PSYCH: Normal mood, normal affect. SKIN: Warm, dry, normal turgor, no rashes or lesions noted. LABS Laboratory Results - last 24 hr 05/02/18 08:30 Creatine Kinase 80 Troponin I < 0.02 HOSPITAL COURSE: Patient is a47 year old male, with a significant past medical history of HTN, HLD, stents x5 (last stent placement was 8 months ago), NIDDM, Thyroid CA,S/P Thyroid resection, and Castleman Disease c/o left chest pressure when he was lifting boxes at work. Pain localized to left chest, pressure-like, non- radiating, 5-6/10 in intensity. Patient was transferred from [facility] to [facility] for closer monitoring per cardiology. Patient has been stable overnight, no chest pain, no shortness of breath. EKG unchanged. Per cardiology, patient can have outpatient stress test scheduled fo 05/03/2017 at 1pm. Chest pain, resolved troponins negative no changes on ekg cardiac monitoring stable stress test tomorrow diabetes, resume home meds H/O Thyroid cancer, continue synthroid 200mcg daily Hypertension, controlled Hyperlipidemia, on plavis, asa, statin Cast[place]ans Disease, outpatient monitoring stable for d/c home with scheduled stress test tomorrow. Date of Admission:04/30/18 Date of Discharge: 05/02/18 Minutes to complete discharge: 60 Discharge Summary Reason For Visit: CHEST PAIN, R/O ACS Condition: Good - Instructions Diet, Activity, Other Instructions: Mr. Ontiveros: You were under observation at [facility] for chest pain. Your cardiac work has been negative and we will be discharging you home today. You will see Dr. Zhao tomorrow for a stress test scheduled for 1pm. New Medications: Metoprolol 12.5 mg twice daily at 8am and 8pm Continue the Plavix 75mg daily Continue the aspirin 81mg daily start lipitor 80mg daily at bedtime Continue the Synthroid 200mg daily and have your TSH repeated with your primary care doctor. Please call me with any questions that you may have. [facility] [phone] Referrals: Nicolas Reece MD [Primary Care Provider] - Disposition: HOME - Home Medications Comprehensive Discharge Medication List: Ambulatory Orders Levothyroxine [Synthroid -] 300 mcg PO DAILY 08/21/14 Aspirin [Aspirin EC] 81 mg PO DAILY 12/30/14 Alprazolam [Xanax] 1 mg PO PRN PRN 09/27/15 Olmesartan Medoxomil [Benicar -] 20 mg PO HS 09/27/15 Sitagliptin Phosphate [Januvia] 100 mg PO DAILY 07/25/16 Oxycodone HCl/Acetaminophen [Percocet 10-325 mg Tablet] 1 each PO PRN PRN Tramadol HCl 50 mg PO PRN PRN 11/17/16 Albuterol Sulfate Inhaler - [Ventolin HFA Inhaler -] 1 - 2 inh PO QID PRN #1 inhaler 01/24/17 Clopidogrel Bisulfate [Plavix] 75 mg PO DAILY 04/30/18 Atorvastatin Ca [Lipitor] 80 mg PO HS #30 tablet 05/02/18 Metoprolol Tartrate [Lopressor -] 12.5 mg PO BID #60 tablet 05/02/18 Metoprolol Tartrate [Lopressor -] 12.5 tab PO DAILY #60 tablet 05/02/18 This patient is new to me today: Yes Date on this admission: 05/02/18 Emergency Visit: No Critical Care patient: No - Discharge Referral Referred to [facility] Med [facility].C.: No
== END 2018-05-02 13:02 | disposition home or self-care (01) ==
LOC: FER 18:58 → FM/S 23:04 → J4W 05-01 17:20
PROVIDERS: ADMIT Internal Medicine; ATTEND Nurse Practitioner Family
PROC: 3E013GC Introduction of Other Therapeutic Substance into Subcutaneous Tissue, Percutaneous Approach (ICD-10-PCS; principal; 2018-04-30)
PROC: 3E0234Z Introduction of Serum, Toxoid and Vaccine into Muscle, Percutaneous Approach (ICD-10-PCS; 2018-04-30)
DX: R07.89 Other chest pain (principal); E11.65 Type 2 diabetes mellitus with hyperglycemia; R59.0 Localized enlarged lymph nodes; E66.01 Morbid (severe) obesity due to excess calories; Z68.42 Body mass index [BMI] 45.0-49.9, adult; I10 Essential (primary) hypertension; E78.5 Hyperlipidemia, unspecified; I50.30 Unspecified diastolic (congestive) heart failure; I11.0 Hypertensive heart disease with heart failure; I25.10 Atherosclerotic heart disease of native coronary artery without angina pectoris; N40.0 Benign prostatic hyperplasia without lower urinary tract symptoms; D47.Z2 Castleman disease; Z85.850 Personal history of malignant neoplasm of thyroid; R10.9 Unspecified abdominal pain; N17.9 Acute kidney failure, unspecified; E03.9 Hypothyroidism, unspecified; Z23 Encounter for immunization
CPT/HCPCS: 36415; 71045-TC-FY; 80048; 80053; 81003; 81015; 82550; 82962; 84443; 84484; 85025; 85027; 90471; 90688; 93005; 93010; 96372; 99285-25; G0378; J1644

== ENCOUNTER 2019-01-31 23:23 | Emergency (ER) | payer OTHER ==
[2019-01-31] MEDS ORDERED: ALBUTEROL SO4 0.083% IH SOL 2.5 MG/3 ML VIAL.NEB. NEB ONE ×2 (23:27→23:57)
[2019-01-31] MEDS ORDERED: DEXAMETHASONE SOD PHOSPHATE 10 MG/1 ML VIAL IM ONE (23:28)
[2019-01-31 23:35] VITALS: BP 109/75; PULSE 80; TEMP 98.5; BMI 47.3
--- NOTE | 2019-01-31 23:42 | PDOC ---
History of Present Illness - General Chief Complaint: Respiratory Stated Complaint: COUGH X 3 DAYS Time Seen by Provider: 01/31/19 23:25 History Source: Patient Exam Limitations: No Limitations - History of Present Illness Initial Comments: 02/01/19 06:47 cough, dyspnea at night Is this a multiple visit Asthma Patient?: No Timing/Duration: reports: getting worse, week Severity: reports: moderate Episode Description: dyspnes when he lies down, chest tightness with dyspnea Possible Cause: Yes: no prior episodes Modifying Factors: improves with: lying down Associated Symptoms: reports: headache. denies: chest pain/soreness, fever/ chills Past History - Past Medical History Allergies/Adverse Reactions: Allergies Allergy/AdvReac Type Severity Reaction Status Date / Time green pepper Allergy Severe Difficulty Verified 01/31/19 23:28 Breathing No Known Drug Allergies Allergy Unknown Verified 01/31/19 23:28 PEPPER Allergy Uncoded 02/15/17 06:17 Home Medications: Ambulatory Orders Levothyroxine [Synthroid -] 300 mcg PO DAILY 08/21/14 Aspirin [Aspirin EC] 81 mg PO DAILY 12/30/14 Alprazolam [Xanax] 1 mg PO PRN PRN 09/27/15 Sitagliptin Phosphate [Januvia] 100 mg PO DAILY 07/25/16 Albuterol Sulfate Inhaler - [Ventolin HFA Inhaler -] 1 - 2 inh PO QID PRN #1 inhaler 01/24/17 Clopidogrel Bisulfate [Plavix] 75 mg PO DAILY 04/30/18 Atorvastatin Ca [Lipitor] 80 mg PO HS #30 tablet 05/02/18 Metoprolol Tartrate [Lopressor -] 12.5 mg PO BID #60 tablet 05/02/18 Metoprolol Tartrate [Lopressor -] 12.5 tab PO DAILY #60 tablet 05/02/18 Anemia: No Asthma: No Cancer: Yes (THYROID) Cardiac Disorders: Yes (STENT X1) CVA: No COPD: No CHF: No Dementia: No Diabetes: Yes GI Disorders: Yes (GERD) Disorders: No HTN: Yes Hypercholesterolemia: Yes Liver Disease: No Seizures: No Thyroid Disease: Yes (THYROIDECTOMY) - Surgical History Abdominal Surgery: No Appendectomy: No Cardiac Surgery: Yes (STENT X4) Cholecystectomy: No Lung Surgery: Yes Neurologic Surgery: No Orthopedic Surgery: Yes (LEFT ROTATOR CUFF REPAIR 2002) - Immunization History Immunization Up to Date: Yes - Psycho Social/Smoking Cessation Hx Smoking Status: No Smoking History: Never smoked Have you smoked in the past 12 months: No Number of Cigarettes Smoked Daily: 0 Information on smoking cessation initiated: No Hx Alcohol Use: No Drug/Substance Use Hx: No Substance Use Type: None Hx Substance Use Treatment: No Review of Systems - Review of Systems All Other Systems: Reviewed and Negative *Physical Exam - Vital Signs Last Vital Signs Temp Pulse Resp BP Pulse Ox 98.5 F 80 20 109/75 96 01/31/19 23:31 01/31/19 23:31 01/31/19 23:31 01/31/19 23:31 01/31/19 23:31 - Physical Exam General Appearance: Yes: Nourished. No: Apparent Distress HEENT: positive: Normal Voice Neck: negative: Lymphadenopathy (R), Lymphadenopathy (L) Respiratory/Chest: positive: Wheezing Cardiovascular: positive: Regular Rate Lymphatic: negative: Adenopathy Musculoskeletal: positive: Normal Inspection Extremity: positive: Normal Capillary Refill Integumentary: positive: Normal Color Neurologic: positive: Fully Oriented ED Treatment Course - LABORATORY CBC & Chemistry Diagram: 02/01/19 00:25 02/01/19 00:25 - RADIOLOGY Radiology Studies Ordered: Category Date Time Status CHEST PA & LAT [RAD] Stat Radiology 01/31/19 23:27 Ordered Medical Decision Making - Medical Decision Making 02/01/19 06:49 chest xray-brian, as read by me, referred to radiology for definitive review a/p bronchitis/ RAD improved in Ed after treatment with dex and albuterol labs reviewed Discharge - Discharge Information Problems reviewed: Yes Clinical Impression/Diagnosis: Bronchitis Condition: Stable Disposition: HOME - Follow up/Referral Referrals: Nicolas Reece MD [Primary Care Provider] - Call tomorrow - Patient Discharge Instructions Patient Printed Discharge Instructions: DI for Acute Bronchitis - Post Discharge Activity
[2019-01-31] MEDS ORDERED: DEXAMETHASONE SOD PHOSPHATE 10 MG/1 ML VIAL ONE (23:57)
[2019-02-01 00:36] LABS: BASO % 0.6 % (0-2.0); EOS % 1.9 % (0-4.5); HEMATOCRIT 40.4 % (35.4-49); HEMOGLOBIN 13.3 GM/dL (11.7-16.9); LYMPH % 24.1 % (8-40); MCH 28.3 pg (25.7-33.7); MCHC 32.8 g/dl (32.0-35.9); MEAN CELL VOLUME 86.4 fl (80-96); MEAN PLT VOLUME 9.6 fl (7.5-11.1); MONO % 8.5 % (3.8-10.2); NEUT % 64.9 % (42.8-82.8); PLATELET COUNT 192 K/MM3 (134-434); RBC 4.68 M/mm3 (4.00-5.60); RDW 15.7 % (11.9-15.9); WHITE BLOOD COUNT 8.3 K/mm3 (4.0-10.0)
[2019-02-01] MEDS ORDERED: KETOROLAC TROMETHAMINE 15 MG/ML VIAL IVPUSH STA (00:49)
[2019-02-01] MEDS ORDERED: KETOROLAC TROMETHAMINE 15 MG/ML VIAL ONE (00:49)
[2019-02-01 01:05] LABS: ALBUMIN 3.5 g/dl (3.4-5.0); ALK PHOS 62 U/L (45-117); ANION GAP 7 MMOL/L (8-16); BILIRUBIN,TOTAL 0.3 mg/dL (0.2-1); CALCIUM 8.7 mg/dL (8.5-10.1); CHLORIDE 101 mmol/L (98-107); CO2 31 mmol/L (21-32); GLUCOSE,RANDOM 121 mg/dL (74-106); POTASSIUM 3.8 mmol/L (3.5-5.1); SGOT/AST 25 U/L (15-37); SGPT/ALT 38 U/L (13-61); SODIUM 139 mmol/L (136-145); TOT PROT 7.2 g/dl (6.4-8.2)
[2019-02-01] MEDS ORDERED: ALBUTEROL SO4 8 GM HFA INHALER IH ONE (01:24)
== END 2019-02-01 01:38 | disposition home or self-care (01) ==
LOC: FER 23:23
PROC: 3E0F7GC Introduction of Other Therapeutic Substance into Respiratory Tract, Via Natural or Artificial Opening (ICD-10-PCS; principal; 2019-01-31)
PROC: 3E023GC Introduction of Other Therapeutic Substance into Muscle, Percutaneous Approach (ICD-10-PCS; 2019-01-31)
PROC: 3E0333Z Introduction of Anti-inflammatory into Peripheral Vein, Percutaneous Approach (ICD-10-PCS; 2019-01-31)
DX: J40 Bronchitis, not specified as acute or chronic (principal); Z91.018 Allergy to other foods; Z95.5 Presence of coronary angioplasty implant and graft; K21.9 Gastro-esophageal reflux disease without esophagitis; Z85.850 Personal history of malignant neoplasm of thyroid; I10 Essential (primary) hypertension; E78.00 Pure hypercholesterolemia, unspecified; Z98.890 Other specified postprocedural states
CPT/HCPCS: 36415; 71046-TC-FY; 80053; 84484; 85025; 94640; 96372; 96374; 99282-25; J1100

== ENCOUNTER 2019-03-06 09:36 | Emergency (ER) | payer OTHER ==
[2019-03-06 09:51] VITALS: BP 135/92; PULSE 90; TEMP 98; BMI 47.3
--- NOTE | 2019-03-06 09:51 | PDOC ---
History of Present Illness - General Chief Complaint: Redness To Affected Area Stated Complaint: FINGER & TOENAIL PROBLEM Time Seen by Provider: 03/06/19 09:40 History Source: Patient Exam Limitations: No Limitations - History of Present Illness Initial Comments: 03/06/19 09:45 48 y/o male with nail and toe pain for several days. No fever or chills. No fall or trauma. Has not taken anything for the pain. Patient states that he was able to remove most of the left thumb nail and had drainage of pus. No area red. Is this a multiple visit Asthma Patient?: No Past History - Past Medical History Allergies/Adverse Reactions: Allergies Allergy/AdvReac Type Severity Reaction Status Date / Time green pepper Allergy Severe Difficulty Verified 01/31/19 23:28 Breathing No Known Drug Allergies Allergy Unknown Verified 01/31/19 23:28 PEPPER Allergy Uncoded 02/15/17 06:17 Home Medications: Ambulatory Orders Levothyroxine [Synthroid -] 300 mcg PO DAILY 08/21/14 Aspirin [Aspirin EC] 81 mg PO DAILY 12/30/14 Alprazolam [Xanax] 1 mg PO PRN PRN 09/27/15 Sitagliptin Phosphate [Januvia] 100 mg PO DAILY 07/25/16 Albuterol Sulfate Inhaler - [Ventolin HFA Inhaler -] 1 - 2 inh PO QID PRN #1 inhaler 01/24/17 Clopidogrel Bisulfate [Plavix] 75 mg PO DAILY 04/30/18 Atorvastatin Ca [Lipitor] 80 mg PO HS #30 tablet 05/02/18 Metoprolol Tartrate [Lopressor -] 12.5 mg PO BID #60 tablet 05/02/18 Metoprolol Tartrate [Lopressor -] 12.5 tab PO DAILY #60 tablet 05/02/18 Cephalexin [Keflex] 500 mg PO TID #21 capsule 03/06/19 Anemia: No Asthma: No Cancer: Yes (THYROID) Cardiac Disorders: Yes (STENT X1) CVA: No COPD: No CHF: No Dementia: No Diabetes: Yes GI Disorders: Yes (GERD) Disorders: No HTN: Yes Hypercholesterolemia: Yes Liver Disease: No Seizures: No Thyroid Disease: Yes (THYROIDECTOMY) - Surgical History Abdominal Surgery: No Appendectomy: No Cardiac Surgery: Yes (STENT X4) Cholecystectomy: No Lung Surgery: Yes Neurologic Surgery: No Orthopedic Surgery: Yes (LEFT ROTATOR CUFF REPAIR 2002) - Immunization History Immunization Up to Date: Yes - Psycho Social/Smoking Cessation Hx Smoking Status: No Smoking History: Never smoked Have you smoked in the past 12 months: No Number of Cigarettes Smoked Daily: 0 Hx Alcohol Use: No Drug/Substance Use Hx: No Substance Use Type: None Hx Substance Use Treatment: No Review of Systems - Review of Systems Able to Perform ROS?: Yes Is the patient limited Greek proficient: No Constitutional: No: Chills, Fever Respiratory: No: Cough, Shortness of Breath Cardiac (ROS): No: Chest Pain : No: Dysuria, Frequency Musculoskeletal: No: Joint Pain, Muscle Pain Integumentary: Yes: Erythema. No: Bruising, Pruritus All Other Systems: Reviewed and Negative *Physical Exam - Physical Exam General Appearance: Yes: Nourished, Appropriately Dressed. No: Apparent Distress HEENT: positive: EOMI, JOLIE, Normal ENT Inspection, Normal Voice, Pharynx Normal Neck: positive: Trachea midline, Normal Thyroid, Supple. negative: Tender, Rigid Respiratory/Chest: positive: Lungs Clear, Normal Breath Sounds. negative: Chest Tender, Respiratory Distress Cardiovascular: positive: Regular Rhythm, Regular Rate, S1, S2. negative: Edema , JVD, Murmur Vascular Pulses: Femoral (R): 4+, Femoral (L): 4+, Carotid (R): 4+, Carotid (L) : 4+, Dorsalis-Pedis (R): 4+, Doralis-Pedis (L): 4+ Gastrointestinal/Abdominal: positive: Normal Bowel Sounds, Soft. negative: Tender Lymphatic: negative: Adenopathy, Tenderness, Other Musculoskeletal: positive: Normal Inspection. 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, Fully Oriented, Alert, Normal Mood/ Affect, Normal Response, Motor Strength 5/5 ED Treatment Course - ADDITIONAL ORDERS Additional order review: 03/06/19 09:49 Patient presents with mild cellulitis finger/toe Will treat with Keflex If worsen return to ER Discharge - Discharge Information Problems reviewed: Yes Clinical Impression/Diagnosis: Onychomycosis Condition: Good Disposition: HOME - Admission No - Follow up/Referral - Patient Discharge Instructions Patient Printed Discharge Instructions: DI for Cellulitis -- Adult Additional Instructions: Ice, Motrin, rest Keflex 500mg 3x/day for 7 days If worsen return to ER - Post Discharge Activity
[2019-03-06] MEDS ORDERED: IBUPROFEN 400 MG TABLET (FP) PO ONE ×2 (09:53→09:57)
== END 2019-03-06 10:13 | disposition home or self-care (01) ==
LOC: FER 09:36
DX: B35.1 Tinea unguium (principal); Z91.018 Allergy to other foods; I10 Essential (primary) hypertension; K21.9 Gastro-esophageal reflux disease without esophagitis; E78.00 Pure hypercholesterolemia, unspecified; E07.9 Disorder of thyroid, unspecified; Z85.850 Personal history of malignant neoplasm of thyroid; Z95.5 Presence of coronary angioplasty implant and graft
CPT/HCPCS: 99281-25

== ENCOUNTER 2019-03-16 19:41 | Emergency (ER) | payer OTHER ==
--- NOTE | 2019-03-16 19:56 | PDOC ---
Rapid Medical Evaluation Time Seen by Provider: 03/16/19 19:52 Medical Evaluation: Allergies Allergy/AdvReac Type Severity Reaction Status Date / Time green pepper Allergy Severe Difficulty Verified 01/31/19 23:28 Breathing No Known Drug Allergies Allergy Unknown Verified 01/31/19 23:28 PEPPER Allergy Uncoded 02/15/17 06:17 03/16/19 19:52 Pt presents to the ER for evaluation of abdominal pain. Pt states he was laying on the couch earlier today when he started coughing. He states while he was coughing, he felt his abdomen "move". He states he has a lot of pain in the middle of his abdomen. Exam: TTP of the periumbilical areal Orders: labs, IV Pt to proceed to the ER for further evaluation Discharge Disposition - Diagnosis Abdominal pain in male - Referrals - Patient Instructions - Post Discharge Activity
[2019-03-16 19:57] VITALS: BP 141/91; PULSE 100; TEMP 98.7; BMI 46.6
[2019-03-16] MEDS ORDERED: ACETAMINOPHEN 1000 MG/100 ML VIAL (NON FORMULARY) IVPB ONE (21:05)
--- NOTE | 2019-03-16 21:27 | PDOC ---
History of Present Illness - General Chief Complaint: Pain Stated Complaint: ABD PAIN Time Seen by Provider: 03/16/19 19:52 History Source: Patient Exam Limitations: No Limitations Past History - Past Medical History Allergies/Adverse Reactions: Allergies Allergy/AdvReac Type Severity Reaction Status Date / Time green pepper Allergy Severe Difficulty Verified 03/16/19 19:54 Breathing No Known Drug Allergies Allergy Unknown Verified 03/16/19 19:54 PEPPER Allergy Uncoded 03/16/19 19:54 Home Medications: Ambulatory Orders Levothyroxine [Synthroid -] 300 mcg PO DAILY 08/21/14 Aspirin [Aspirin EC] 81 mg PO DAILY 12/30/14 Alprazolam [Xanax] 1 mg PO PRN PRN 09/27/15 Sitagliptin Phosphate [Januvia] 100 mg PO DAILY 07/25/16 Albuterol Sulfate Inhaler - [Ventolin HFA Inhaler -] 1 - 2 inh PO QID PRN #1 inhaler 01/24/17 Clopidogrel Bisulfate [Plavix] 75 mg PO DAILY 04/30/18 Atorvastatin Ca [Lipitor] 80 mg PO HS #30 tablet 05/02/18 Metoprolol Tartrate [Lopressor -] 12.5 mg PO BID #60 tablet 05/02/18 Metoprolol Tartrate [Lopressor -] 12.5 tab PO DAILY #60 tablet 05/02/18 Cephalexin [Keflex] 500 mg PO TID #21 capsule 03/06/19 Anemia: No Asthma: No Cancer: Yes (THYROID) Cardiac Disorders: Yes (STENT X1) CVA: No COPD: No CHF: No Dementia: No Diabetes: Yes GI Disorders: Yes (GERD) Disorders: No HTN: Yes Hypercholesterolemia: Yes Liver Disease: No Seizures: No Thyroid Disease: Yes (THYROIDECTOMY) - Surgical History Abdominal Surgery: No Appendectomy: No Cardiac Surgery: Yes (STENT X4) Cholecystectomy: No Lung Surgery: Yes Neurologic Surgery: No Orthopedic Surgery: Yes (LEFT ROTATOR CUFF REPAIR 2002) - Immunization History Immunization Up to Date: Yes - Psycho Social/Smoking Cessation Hx Smoking Status: No Smoking History: Never smoked Have you smoked in the past 12 months: No Number of Cigarettes Smoked Daily: 0 Hx Alcohol Use: No Drug/Substance Use Hx: No Substance Use Type: None Hx Substance Use Treatment: No *Physical Exam - Vital Signs Last Vital Signs Temp Pulse Resp BP Pulse Ox 98.7 F 100 H 18 141/91 96 03/16/19 19:54 03/16/19 19:54 03/16/19 19:54 03/16/19 19:54 03/16/19 19:54 - Physical Exam General Appearance: No: Apparent Distress Respiratory/Chest: positive: Lungs Clear, Normal Breath Sounds. negative: Respiratory Distress Cardiovascular: positive: Regular Rhythm, Regular Rate, S1, S2. negative: Murmur Gastrointestinal/Abdominal: positive: Normal Bowel Sounds, Soft. negative: Tender, Distended, Guarding, Rebound Musculoskeletal: negative: CVA Tenderness Neurologic: positive: Alert ED Treatment Course - LABORATORY CBC & Chemistry Diagram: 03/16/19 21:40 03/16/19 21:40 Medical Decision Making - Medical Decision Making 48 y/o M hx of HTN, HLD, DM, thyroid CA s/p thyroidectomy, GERD, CAD s/p PCI x5 presents with epigastric pain which started while he was coughing while lying down on couch today; states felt something twisting in his abdomen. Denies fever , sob, cp, n/v/d, constipation, urinary symptoms. Denies prior abdominal surgeries. Patient is having regular BMs; last BM was today. Patient tolerated his dinner well. Low suspicion for cholecystitis, appendicitis, diverticulitis, SBO Patient appears comfortable on exam Consider hernia? (though nothing obvious noted on exam) Plan: Labs 03/16/19 21:24 Labs unremarkable Patient currently is pain free D/W Dr. Cazares - recommends CT A/P for further eval 03/16/19 22:28 CT A/P findings: There is no bowel obstruction or inflammation. Negative for diverticulitis or colitis. Normal appendix. Normal kidneys. No urinary tract obstruction. Enlarged fatty liver. Normal spleen. Impression normal pancreas. Normal adrenal glands. Positive for cholelithiasis. No free intraperitoneal air or free fluid. Cardiomegaly. Possible left ventricular hypertrophy. Calcified coronary artery plaque. Atelectatic changes left lung base. This is due to an elevated left hemidiaphragm. 3.8 cm subcarinal mass or lymphadenopathy. This may warrant further investigation and comparison with prior scans. No acute findings Incidental findings as discussed above were discussed with patient Patient given copy of CT scan reports 03/16/19 23:42 Discharge - Discharge Information Problems reviewed: Yes Clinical Impression/Diagnosis: Abdominal pain in male Condition: Stable Disposition: HOME - Admission No - Additional Discharge Information Prescription Drug Monitoring Program (I-STOP) results: I-STOP not reviewed - Follow up/Referral Referrals: Nicolas Reece MD [Primary Care Provider] - 2 Days - Patient Discharge Instructions Patient Printed Discharge Instructions: DI for Abdominal Pain-Adult Additional Instructions: Thank you for choosing [facility]. It was a pleasure taking care of you. Please follow-up with your doctor regarding the incidental findings noted on your CT scan Return to the Emergency Department if your symptoms worsen or persist, you have fever, shortness of breath, chest pain, severe abdominal pain, vomiting or other concerning symptoms. - Post Discharge Activity
[2019-03-16] MEDS ORDERED: MAG HYDROX/AL HYDROX/SIMETH 30 ML UNIT-DOSE CUP PO ONE (21:38)
[2019-03-16] MEDS ORDERED: MAG HYDROX/AL HYDROX/SIMETH 30 ML UNIT-DOSE CUP ONE (21:47)
[2019-03-16] MEDS ORDERED: ACETAMINOPHEN INJECTION 100 ML IVPB ONE (21:47)
[2019-03-16 21:52] LABS: BASO % 1.1 % (0-2.0); EOS % 1.4 % (0-4.5); HEMATOCRIT 40.2 % (35.4-49); HEMOGLOBIN 13.2 GM/dL (11.7-16.9); LYMPH % 16.2 % (8-40); MCH 28.6 pg (25.7-33.7); MCHC 32.8 g/dl (32.0-35.9); MEAN CELL VOLUME 87.4 fl (80-96); MONO % 6.7 % (3.8-10.2); NEUT % 74.6 % (42.8-82.8); PLATELET COUNT 246 K/MM3 (134-434); RDW 15.6 % (11.9-15.9); WHITE BLOOD COUNT 9.2 K/mm3 (4.0-10.0)
[2019-03-16 21:53] LABS: URINE APPEARANCE CLEAR; URINE BILIRUBIN NEGATIVE (NEGATIVE); URINE COLOR YELLOW; URINE GLUCOSE (UA) NEGATIVE (NEGATIVE); URINE KETONE TRACE (NEGATIVE); URINE LEUK ESTERASE NEGATIVE (NEGATIVE); URINE NITRITE NEGATIVE (NEGATIVE); URINE PROTEIN TRACE (NEGATIVE)
[2019-03-16 22:22] LABS: ALBUMIN 3.5 g/dl (3.4-5.0); BILIRUBIN,TOTAL 0.4 mg/dL (0.2-1); BLOOD UREA NITROGEN 16.2 mg/dL (7-18); CALCIUM 8.7 mg/dL (8.5-10.1); POTASSIUM 4.3 mmol/L (3.5-5.1); TOT PROT 7.3 g/dl (6.4-8.2)
[2019-03-16 22:38] LABS: PLATELET ESTIMATE ADEQUATE
== END 2019-03-16 23:55 | disposition home or self-care (01) ==
LOC: JER 19:41
PROC: 3E033NZ Introduction of Analgesics, Hypnotics, Sedatives into Peripheral Vein, Percutaneous Approach (ICD-10-PCS; principal; 2019-03-16)
DX: R10.9 Unspecified abdominal pain (principal); Z85.850 Personal history of malignant neoplasm of thyroid; Z95.5 Presence of coronary angioplasty implant and graft; K21.9 Gastro-esophageal reflux disease without esophagitis; E11.9 Type 2 diabetes mellitus without complications; I10 Essential (primary) hypertension; E78.00 Pure hypercholesterolemia, unspecified; Z91.018 Allergy to other foods
CPT/HCPCS: 36415; 74177-TC; 80053; 81003; 83690; 85025; 87086; 99282-25; J0131

== ENCOUNTER 2019-11-20 07:02 | Emergency (ER) | payer OTHER ==
--- NOTE | 2019-11-20 07:04 | PDOC ---
History of Present Illness - General Chief Complaint: Pain, Acute Stated Complaint: ABD PAIN Time Seen by Provider: 11/20/19 07:04 - History of Present Illness Initial Comments: 11/20/19 07:06 48 y/o M hx of HTN, HLD, DM, thyroid CA s/p thyroidectomy, GERD, CAD s/p PCI x5, recent dx of castleman disease presents ambulatory for eval of 2 days of abd pain. Pt states the pain started 2 days ago on his right side. States he feels the pain when he lays flat and when he moves in his R flank - no radiation of the pain. Pt denies all urinary complaints - no hematuria, dysuria, freq, urgency and also denies GI complaints- no n/v/d/constipation- last bm was yesterday. States 2 days ago he took mylanta and the pain resolved - states he also had blood work performed that day. Pt denies f/c. No cp/sob. States the pain is worse when he stretches and feels a muscle is pulling. Pt denies cva ttp. Pt states he was pain free yesterday, but then today woke up with the pain again. Pt denies all other complaints. Past History - Medical History Allergies/Adverse Reactions: Allergies Allergy/AdvReac Type Severity Reaction Status Date / Time green pepper Allergy Severe Difficulty Verified 03/16/19 19:54 Breathing No Known Drug Allergies Allergy Unknown Verified 03/16/19 19:54 PEPPER Allergy Uncoded 03/16/19 19:54 Home Medications: Ambulatory Orders Levothyroxine [Synthroid -] 300 mcg PO DAILY 08/21/14 Aspirin [Aspirin EC] 81 mg PO DAILY 12/30/14 Alprazolam [Xanax] 1 mg PO PRN PRN 09/27/15 Sitagliptin Phosphate [Januvia] 100 mg PO DAILY 07/25/16 Albuterol Sulfate Inhaler - [Ventolin HFA Inhaler -] 1 - 2 inh PO QID PRN #1 inhaler 01/24/17 Atorvastatin Ca [Lipitor] 80 mg PO HS #30 tablet 05/02/18 Metoprolol Tartrate [Lopressor -] 12.5 mg PO BID #60 tablet 05/02/18 Dicyclomine HCl [Bentyl -] 10 mg PO Q6H PRN #12 capsule 11/20/19 Lisinopril [Zestril] 2.5 mg PO DAILY 11/20/19 Anemia: No Asthma: No Cancer: Yes (THYROID) Cardiac Disorders: Yes (STENT X1) CVA: No COPD: No CHF: No Dementia: No Diabetes: Yes GI Disorders: Yes (GERD) Disorders: No HTN: Yes Hypercholesterolemia: Yes Liver Disease: No Seizures: No Thyroid Disease: Yes (THYROIDECTOMY) - Surgical History Abdominal Surgery: No Appendectomy: No Cardiac Surgery: Yes (STENT X4) Cholecystectomy: No Lung Surgery: Yes Neurologic Surgery: No Orthopedic Surgery: Yes (LEFT ROTATOR CUFF REPAIR 2002) - Immunization History Immunization Up to Date: Yes - Psycho-Social/Smoking History Smoking Status: No Smoking History: Never smoked Have you smoked in the past 12 months: No Number of Cigarettes Smoked Daily: 0 Review of Systems - Review of Systems Able to Perform ROS?: Yes Is the patient limited Mauritian proficient: No Constitutional: No: Chills, Fever HEENTM: No: Nose Congestion, Throat Pain Respiratory: No: Cough, Shortness of Breath Cardiac (ROS): No: Chest Pain, Lightheadedness ABD/GI: Yes: Other (right sided abd pain). No: Constipated, Diarrhea, Nausea, Vomiting : No: Burning, Dysuria, Frequency, Hematuria, Urgency Musculoskeletal: No: Back Pain Integumentary: No: Rash Neurological: No: Headache, Numbness, Paresthesia All Other Systems: Reviewed and Negative *Physical Exam - Vital Signs 11/20/19 07:38 Selected Entries 11/20/19 07:08 Temperature 98.5 F Pulse Rate 89 Respiratory 18 Rate Blood Pressure 125/86 Blood Pressure 99 Mean O2 Sat by Pulse 95 Oximetry (%) Weight 149.685 kg - Physical Exam General Appearance: Yes: Nourished, Appropriately Dressed. No: Apparent Distress HEENT: positive: EOMI, Normal Voice Neck: positive: Supple Respiratory/Chest: positive: Lungs Clear, Normal Breath Sounds. negative: Respiratory Distress Cardiovascular: positive: Regular Rhythm, Regular Rate, S1, S2. negative: Edema Gastrointestinal/Abdominal: positive: Soft, Protuberent, Tenderness (point tenderness at the right mid abd, no hernia palpated, neg murphys, no cva ttp, neg mcburneys point, scratch hardy to the lower abd wall, morbidly obese). negative: Guarding, Rebound Musculoskeletal: positive: Normal Inspection. negative: CVA Tenderness Extremity: positive: Normal Range of Motion, Other (ambulatory with a steady gait). negative: Calf Tenderness Integumentary: positive: Normal Color, Dry, Warm Neurologic: positive: Fully Oriented, Alert, Normal Response Medical Decision Making - Medical Decision Making 11/20/19 07:39 a/p: 48yo male with a year hx of episodic R sided abd pain -pt states he gets the pain about every 4-6m -pt with prior ct that show diverticula and gallstones, given flank pain will send for noncon ct to eval further -pt had labs from 2 days ago at [facility] that showed normal renal function, normal blood counts, normal LFT, had elevated cholesterol, covid neg -will send urine given mid abd pain -no hernia palpated -pt states pain is worse when he stretches or moves -will medicate and monitor 11/20/19 07:43 11/20/19 08:14 ua shows trace blood ct ordered to eval for poss stone 11/20/19 09:57 pt feeling much better ct pending official read pt walking around the department drinking water without pain 11/20/19 12:[address] imaging that shows enlarged lymph nodes and an enlarged liver and spleen, gave pt the reports to follow up this week as scheduled with his doctors at [place]. pt states pain is resolved Discharge - Discharge Information Problems reviewed: Yes Clinical Impression/Diagnosis: Abdominal pain, Lymphadenopathy Condition: Stable Disposition: HOME - Admission No - Additional Discharge Information Prescriptions: Dicyclomine HCl [Bentyl -] 10 mg PO Q6H PRN #12 capsule PRN Reason: Pain - Follow up/Referral Referrals: Nicolas Reece MD [Primary Care Provider] - - Patient Discharge Instructions Patient Printed Discharge Instructions: DI for Abdominal Pain-Adult, DI for Lymphadenopathy Additional Instructions: Please keep your appointment with your [place] lymph node specialist as scheduled for this week. Please also follow up with Dr. Reece to discuss with cholesterol and diabetes. Please drink plenty of fluids and eat a low sugar diet. Please return to the ER with any further concerns or complaints. - Post Discharge Activity
[2019-11-20 07:13] VITALS: BMI 47.3
[2019-11-20] MEDS ORDERED: FAMOTIDINE 20 MG TABLET PO ONE (07:21)
[2019-11-20] MEDS ORDERED: MAG HYDROX/AL HYDROX/SIMETH 30 ML UNIT-DOSE CUP PO ONE (07:21)
[2019-11-20] MEDS ORDERED: ACETAMINOPHEN 500 MG TABLET (FP) PO ONE (07:21)
[2019-11-20] MEDS ORDERED: DICYCLOMINE HCL 20 MG TABLET PO ONE (07:25)
[2019-11-20] MEDS ORDERED: DICYCLOMINE HCL 10 MG CAPSULE ONE (07:30)
[2019-11-20] MEDS ORDERED: ACETAMINOPHEN 500 MG TABLET (FP) ONE (07:30)
[2019-11-20] MEDS ORDERED: MAG HYDROX/AL HYDROX/SIMETH 30 ML UNIT-DOSE CUP ONE (07:30)
[2019-11-20] MEDS ORDERED: FAMOTIDINE 20 MG TABLET ONE (07:30)
[2019-11-20 08:24] LABS: EPITHELIAL CELLS FEW /hpf
[2019-11-20 12:17] VITALS: BP 148/96; PULSE 72; TEMP 97.7
== END 2019-11-20 12:27 | disposition home or self-care (01) ==
LOC: FER 07:02
DX: R10.9 Unspecified abdominal pain (principal); R59.9 Enlarged lymph nodes, unspecified
CPT/HCPCS: 74176-TC; 81003; 81015; 99284-25

== ENCOUNTER 2020-01-26 15:25 | Emergency (ER) | payer OTHER ==
[2020-01-26] MEDS ORDERED: LIDOCAINE 5% TOPICAL PATCH TP ONE (15:38)
[2020-01-26] MEDS ORDERED: KETOROLAC TROMETHAMINE 30 MG/1 ML VIAL IM ONE (15:39)
--- NOTE | 2020-01-26 15:41 | PDOC ---
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 He felt like he strained his left side, worse with breathing and palpation. Pain described as localized, sharp and achy, nonradiating. He did a virtual visit with his PMD Dr Moser, told likely he strained his left side. ROS: Constitutional: no fevers or chills. HEENT: no headache, no dizziness. No neck pain CVS: no palpitations, no syncope. +chest wall pain. Resp: no shortness of breath. +cough Abdomen: no abdominal pain, vomiting or diarrhea. MUSCULOSKELETAL: No joint pain and swelling. No muscle pain/arthralgias. Back: no back pain SKIN: no redness or skin changes, no discharge, no rash. No wounds. Hematologic: no easy bruising/bleeding. NEUROLOGIC: No weakness, numbness or tingling. Allergic/Immunologic: +food allergies All other systems reviewed and negative, or as documented in HPI. Physical exam: General: GCS 15 - NAD, well appearing HEENT: NCAT, PERRL, EOMI. Airway intact. No battles sign or raccoon eyes. No e/o ocular. Dentition intact. No e/o septal hematoma, nasal bridge stable. Neck: neck supple, no midline C spine tenderness or deformity, ROM intact. No anterior mass or crepitus, trachea midline. Resp: Lungs clear bilaterally Chest: no clavicle or chest wall crepitus. +left lateral chest wall tenderness. CVS: RRR, 2+ pulses throughout. Abdomen: Abdomen soft, nontender, nondistended. Back: Back nontender, no midline spinal tenderness along cervical/thoracic/lumbar spine, FROM, no stepoffs. MSK: Pelvis stable, Extremities symmetric, no focal areas of tenderness or deformities, proximal and distally; no pain on axial loading. FROM in all extrem. Neuro: Alert, oriented appropriately. CN II-XII grossly symmetric and intact. no focal neuro deficits. Sensation and strength intact throughout. Gait normal/stable. Skin: intact, normal color and well perfused. 01/26/20 15:42 01/26/20 15:45 Past History - Medical History Allergies/Adverse Reactions: Allergies Allergy/AdvReac Type Severity Reaction Status Date / Time green pepper Allergy Severe Difficulty Verified 03/16/19 19:54 Breathing No Known Drug Allergies Allergy Unknown Verified 03/16/19 19:54 PEPPER Allergy Uncoded 03/16/19 19:54 Home Medications: Ambulatory Orders Levothyroxine [Synthroid -] 300 mcg PO DAILY 08/21/14 Aspirin [Aspirin EC] 81 mg PO DAILY 12/30/14 Alprazolam [Xanax] 1 mg PO PRN PRN 09/27/15 Albuterol Sulfate Inhaler - [Ventolin HFA Inhaler -] 1 - 2 inh PO QID PRN #1 inhaler 01/24/17 Metoprolol Tartrate [Lopressor -] 12.5 mg PO BID #60 tablet 05/02/18 Amlodipine Besylate [Norvasc -] 5 mg PO DAILY 01/26/20 Clopidogrel Bisulfate [Clopidogrel] 75 mg PO HS 01/26/20 Cyclobenzaprine HCl [Flexeril 10 mg] 10 mg PO TID PRN #15 tablet 01/26/20 Lidocaine 5% Patch [Lidoderm Patch -] 1 patch TP DAILY #7 patch 01/26/20 Anemia: No Asthma: No Cancer: Yes (THYROID) Cardiac Disorders: Yes (STENT X1) CVA: No COPD: No CHF: No Dementia: No Diabetes: Yes GI Disorders: Yes (GERD) Disorders: No HTN: Yes Hypercholesterolemia: Yes Liver Disease: No Seizures: No Thyroid Disease: Yes (THYROIDECTOMY) - Surgical History Abdominal Surgery: No Appendectomy: No Cardiac Surgery: Yes (STENT X4) Cholecystectomy: No Lung Surgery: Yes Neurologic Surgery: No Orthopedic Surgery: Yes (LEFT ROTATOR CUFF REPAIR 2002) - Immunization History Immunization Up to Date: Yes - Psycho-Social/Smoking History Smoking Status: No Smoking History: Never smoked Have you smoked in the past 12 months: No Number of Cigarettes Smoked Daily: 0 ED Treatment Course - RADIOLOGY Radiology Studies Ordered: Category Date Time Status RIBS-LEFT SIDE [RAD] Stat Radiology 01/26/20 15:38 Ordered Medical Decision Making - Medical Decision Making 01/26/20 15:43 Vital Signs Temp Pulse Resp BP Pulse Ox 99.2 F 77 20 138/89 98 01/26/20 15:27 01/26/20 15:27 01/26/20 15:27 01/26/20 15:27 01/26/20 15:27 chest pain is msk in nature, reproducible and tender to palp as he likely strained during coughing episode. no sob. no syncope. neuro intact no sx to suggest cardiac etiology, no typical s/s to suggest ACS or arrhythmia, clinically doubt pe or dissection based on history cxr to eval for effusion/edema or ptx. pt had CT scan yesterday as outpatient for follow up on lymphadenopathy 01/26/20 17:11 cxr without acute abnormalities of the chest, unchanged from previous. no infiltrate, no ptx, no effusion The left hemidiaphragm and prominent mediastinum, left-sided surgical clips are seen. No fracture seen. 01/26/20 17:12 analgesia given - tylenol/toradol, flexeril and lido patch with significant improvement feels better, eager for discharge DC stable condition, most likely costochondritis/muscle spasms from intercostal strain pt made aware of impression and plan, agreeable for discharge return precautions given. Discharge - Discharge Information Problems reviewed: Yes Clinical Impression/Diagnosis: Chest wall pain Condition: Improved Disposition: HOME - Admission No - Additional Discharge Information Prescriptions: Cyclobenzaprine HCl [Flexeril 10 mg] 10 mg PO TID PRN #15 tablet PRN Reason: Muscle Spasms Lidocaine 5% Patch [Lidoderm Patch -] 1 patch TP DAILY #7 patch - Follow up/Referral Referrals: Nicolas Reece MD [Staff Physician] - - Patient Discharge Instructions Patient Printed Discharge Instructions: DI for Costochondritis Additional Instructions: 1) Please follow-up with your primary care doctor in the next 1-2 days. Please call tomorrow for for any urgent issues. 2) You were given a copy of the tests performed today. Please bring the results with you and review them with your primary care doctor. 3) If you have any worsening of symptoms or any other concerns please return to the ED immediately. Return if worsening symptoms including fevers, headache, vomiting, visual or hearing disturbances, abdominal pain, chest pain, shortness of breath, syncope, dehydration, inability to take things by mouth/vomiting, altered mental status, or worsening concerning symptoms. 4) Please continue taking your home medications as directed. see below for intructions Stay well hydrated and rest adequately. Make an appointment. If you cannot follow-up with your primary care doctor please return to the ED You most likely have musculoskeletal strain Avoid heavy lifting or strenuous activity to minimize further injury This should heal over the next 3-5 days. RICE rest ice elevate the affected area Rest, Ice (20 minutes at a time, 3 times a day), Compression (MARCELA wrap or splint), Elevation (above the heart). Apply ice to the area for 10 minutes every 2 hours for the first 2 days after the injury to reduce swelling. continue with range of motion exercises, as this will facilitate the healing process; avoid being bed bound and immobile. If you have any worsening of symptoms, including severe pain/swelling/redness/numbness/changes in sensation/weakness/paralysis or any other concerns please return to the Emergency Department immediately. You were given a copy of the results from any tests performed today in the Emergency Department which have results available. Show these to your doctor(s). Some of the tests we sent may not have results yet so please call or have your doctor call the Emergency Department to follow up on all results. Please continue taking your home medications as directed. Do not use alcohol when taking any medication (especially antibiotics, tylenol or other pain medication) unless you check with the doctor or pharmacist. -flexeril is a muscle relaxant, take three times a day as needed may cause sleepiness, do not drive or operate machinery or take with alcohol. -topical lidoderm patch to the area affected, 12 hours on and 12 hours off.. -May take ibuprofen 400-600mg and/or tylenol 650 to 975 mg every 6 hours as needed for mild to moderate pain, available over the counter. This does not require narcotics, as it will precipitate injuries and falls. Please follow up with your primary doctor(s) within the next 1 week, but seek medical care sooner if your symptoms persist or worsen. Please call as soon as possible for an appointment. If you cannot follow up with your doctor please return to the Emergency Department for any urgent issues. Follow up with your primary care physician in 1 week if symptoms persist, or with orthopedics specialists if needed, referrals have been provided. - Post Discharge Activity
[2020-01-26 15:53] VITALS: BP 138/89; PULSE 77; TEMP 99.2; BMI 45.9
--- OUTSIDE RECORDS SUMMARY | 2020-01-26 16:02 | XMS ---
:1970 Author Organization [facility] Support Name Relationship Address Phone PEARCE [address] [place] [address] [facility] etrigg. Unavailable [address] [place] [address] ELIZA MOTHER [address] [place] [address] [address]IZA [address] [place] [address] ELIZA Spouse [address] [address] Re-disclosure Warning The records that you are about to access may contain information from federally- assisted alcohol or drug abuse programs. If such information is present, then the following federally mandated warning applies: This information has been disclosed to you from records protected by federal confidentiality rules (42 CFR part 2). The federal rules prohibit you from making any further disclosure of this information unless further disclosure is expressly permitted by the written consent of the person to whom it pertains or as otherwise permitted by 42 CFR part 2. A general authorization for the release of medical or other information is NOT sufficient for this purpose. The Federal rules restrict any use of the information to criminally investigate or prosecute any alcohol or drug abuse patient.The records that you are about to access may contain highly sensitive health information, the redisclosure of which is protected by Article 27-F of the [facility] Public Health law. If you continue you may haveaccess to information: Regarding HIV / AIDS; Provided by facilities licensed or operated by the [facility] Office of Mental Health; or Provided by the [facility] Office for People With Developmental Disabilities. If such information is present, then the following [facility] mandated warning applies: This information has been disclosed to you from confidential records which are protected by state law. State law prohibits you from making any further disclosure of this information without the specific written consent of the person to whom it pertains, or as otherwise permitted by law. Any unauthorized further disclosure in violation of state law may result in a fine or mcfp sentence or both. A general authorization for the release of medical or other information is NOT sufficient authorization for further disclosure. Insurance Providers Payer name Policy type Policy ID Covered Covered democrat's Policy P coleen / Coverage democrat ID relationship to Rose Inf ormation type rose CARMEN [id number] 400 HE[employer] NON CAP CARMEN [id number] SP [id number] 400 HEALTH NON CAP CARMEN [id number] SP [id number] 400 HEALTH NON CAP
[2020-01-26] MEDS ORDERED: LIDOCAINE 5% TOPICAL PATCH ONE (16:03)
[2020-01-26] MEDS ORDERED: KETOROLAC TROMETHAMINE 30 MG/1 ML VIAL ONE (16:03)
[2020-01-26] MEDS ORDERED: CYCLOBENZAPRINE HCL 5 MG TABLET PO ONE (16:18)
[2020-01-26] MEDS ORDERED: ACETAMINOPHEN 325 MG TABLET (FP) PO ONE (16:18)
[2020-01-26] MEDS ORDERED: ACETAMINOPHEN 500 MG TABLET (FP) ONE (17:01)
[2020-01-26] MEDS ORDERED: CYCLOBENZAPRINE HCL 10 MG TABLET (FP) ONE (17:02)
== END 2020-01-26 17:33 | disposition home or self-care (01) ==
LOC: FER 15:25
PROC: 3E0233Z Introduction of Anti-inflammatory into Muscle, Percutaneous Approach (ICD-10-PCS; principal; 2020-01-26)
DX: R07.9 Chest pain, unspecified (principal)
CPT/HCPCS: 71101-TC-LT-FY; 99284-25

== ENCOUNTER 2020-02-01 13:34 | Emergency (ER) | payer OTHER ==
--- NOTE | 2020-02-01 13:45 | PDOC ---
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 Symptoms have now resolved. Review of systems: There was no chest pain, shortness of breath, abdominal pain, nausea, vomiting, diaphoresis, diarrhea, visual or focal neurologic symptoms, unsteadiness of gait, there was no "spinning sensation" or vertigo. There was no change in symptoms upon sitting or standing, suggesting orthostatic etiology. Past medical history: Morbid obesity, coronary artery disease with multiple stents, most recently 2 years ago, high blood pressure, COPD, hypothyroidism, chronic pain syndrome Medications: Amlodipine, metoprolol, Plavix, albuterol inhaler, baby aspirin, Xanax, Synthroid, Flexeril, and lidocaine patch. Social history: Fully ambulatory, cares for himself, denies tobacco alcohol or street drugs. Stable home and family Family history: Reviewed and significant for early coronary artery disease, but no metabolic diseases including diabetes, lung disease, or cancer. Physical exam: Alert and oriented, morbidly obese, no acute distress, c ooperative. Asymptomatic at present, no lightheadedness, dizziness, or vertigo Afebrile, vital signs normal except for a low blood pressure, initially read is approximately 70/50, but soon rising on its own to 100/60. HEENT clear. P RRLA 4 mm, fundi benign, EOMs full without diplopia, visual aleman intact to confrontation. No vertigo with head movement or change of positions. No exacerbation of symptoms with sitting or standing Neck supple without bruit mass or nodes Chest clear with full breath sounds bilaterally CV regular without murmur rub or gallop pulses full and symmetric trace pedal edema. No JVD. No bruits Abdomen nondistended. Bowel sounds normal. Soft without mass tenderness organomegaly Neurological C2 to 12 intact. Strength full and symmetric. No focal sensorimotor deficits. Gait stable and unimpaired Skin clear, no rash, adequate turgor and wet mucous membranes Assessment: Transient episode of "lightheadedness," without other neurological or cardiac symptoms. This occurred immediately after eating. Now blood pressure is relatively low but the patient is asymptomatic. This may be the result of too much blood pressure medication, an acute cardiac or neurologic event, though this appears unlikely given the transient nature of his symptoms and his physical exam. This could also be a mild viral labyrinthitis Plan: CBC and chemistries, EKG and enzymes, chest x-ray, observation, and further evaluation depending on results. Past History - Medical History Allergies/Adverse Reactions: Allergies Allergy/AdvReac Type Severity Reaction Status Date / Time green pepper Allergy Severe Difficulty Verified 02/01/20 14:05 Breathing No Known Drug Allergies Allergy Unknown Verified 02/01/20 14:05 PEPPER Allergy Uncoded 02/01/20 14:05 Home Medications: Ambulatory Orders Levothyroxine [Synthroid -] 300 mcg PO DAILY 08/21/14 Aspirin [Aspirin EC] 81 mg PO DAILY 12/30/14 Alprazolam [Xanax] 1 mg PO PRN PRN 09/27/15 Albuterol Sulfate Inhaler - [Ventolin HFA Inhaler -] 1 - 2 inh PO QID PRN #1 inhaler 01/24/17 Metoprolol Tartrate [Lopressor -] 12.5 mg PO BID #60 tablet 05/02/18 Amlodipine Besylate [Norvasc -] 5 mg PO DAILY 01/26/20 Clopidogrel Bisulfate [Clopidogrel] 75 mg PO HS 01/26/20 Cyclobenzaprine HCl [Flexeril 10 mg] 10 mg PO TID PRN #15 tablet 01/26/20 Lidocaine 5% Patch [Lidoderm Patch -] 1 patch TP DAILY #7 patch 01/26/20 Anemia: No Asthma: No Cancer: Yes (THYROID) Cardiac Disorders: Yes (STENT X1) CVA: No COPD: No CHF: No Dementia: No Diabetes: Yes GI Disorders: Yes (GERD) Disorders: No HTN: Yes Hypercholesterolemia: Yes Liver Disease: No Seizures: No Thyroid Disease: Yes (THYROIDECTOMY) - Surgical History Abdominal Surgery: No Appendectomy: No Cardiac Surgery: Yes (STENT X4) Cholecystectomy: No Lung Surgery: Yes Neurologic Surgery: No Orthopedic Surgery: Yes (LEFT ROTATOR CUFF REPAIR 2002) - Immunization History Immunization Up to Date: Yes - Psycho-Social/Smoking History Smoking Status: No Smoking History: Never smoked Have you smoked in the past 12 months: No Number of Cigarettes Smoked Daily: 0 ED Treatment Course - LABORATORY CBC & Chemistry Diagram: 02/01/20 13:48 02/01/20 13:48 - ADDITIONAL ORDERS Additional order review: Laboratory Results 02/01/20 13:39 POC Glucometer 409 02/01/20 13:39 POC Glucometer 409 Medical Decision Making - Medical Decision Making 02/01/20 17:21 EKG reveals mild sinus tachycardia 104/min. Normal axes and intervals. Poor R wave across the precordium, probably old anterior wall WI. No acute ST-T wave changes. No change from prior EKGs Chest x-ray: No acute disease Laboratories including CBC chemistries and cardiac enzymes are sniffing and abnormalities except for elevated blood glucose of 440. The patient's initial transient lightheadedness has not recurred. No further symptoms have developed. He was administered subcutaneous insulin and observed. He is hemodynamically and clinically stable at discharge, in no acute distress. 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 Discharge - Discharge Information Problems reviewed: Yes Clinical Impression/Diagnosis: Elevated blood sugar Condition: Improved Disposition: HOME - Admission No - Follow up/Referral - Patient Discharge Instructions Patient Printed Discharge Instructions: DI for Hyperglycemia -- Adult Additional Instructions: You must control your sugar better. See your primary physician/ insurance risk manager as soon as possible, medication modification may be necessary. Make sure you are following your diabetic diet Blood pressure is on the low side. You are on 2 blood pressure medications. See yourcardiologist within 3 days, consider lower doses of antihypertensive medication if blood pressure remains low. Return to the ER if symptoms recur or any new symptoms develop. - Post Discharge Activity
--- OUTSIDE RECORDS SUMMARY | 2020-02-01 13:47 | XMS ---
:[address] [facility] Support Name Relationship Address Phone [address] [place] [address] [facility] [employer]. Unavailable [address] [facility] [place] [address] ELIZA MOTHER [address] [place] [address] ELIZA [address] [place] [address] ELIZA Spouse [address] [place] [address] Re-disclosure Warning The records that you are [...] is protected by Article 27-F of the [facility] Public Health law. If you continue you may haveaccess to information: Regarding HIV / AIDS; Provided by facilities licensed or operated by the [facility] Office of Mental Health; or Provided by the [facility] Office for People With Developmental Disabilities. If such information is present, then the following [facility] mandated warning applies: This information has [...] law may result in a fine or chcf sentence or both. A general authorization for the release of medical or other information is NOT sufficient authorization for further disclosure. Insurance Providers Payer name Policy type Policy ID Covered Covered libertarian's Policy P coleen / Coverage libertarian ID relationship to [facility] ormation type rose CARMEN [id number] SP [id number] 400 HE[employer] NON CAP CARMEN [id number] SP [id number] 400 [employer] NON CAP [employer] [id number] SP [id number] HE[employer] NON CAP [employer]MEN [id number] SP [id number] HEALTH NON CAP
[2020-02-01 14:02] LABS: BASO % 2.6 % (0-2.0); EOS % 0.5 % (0-4.5); HEMATOCRIT 46.8 % (35.4-49); HEMOGLOBIN 15.1 GM/dl (11.7-16.9); LYMPH % 14.6 % (8-40); MCH 28.1 pg (25.7-33.7); MCHC 32.2 g/dl (32.0-35.9); MEAN CELL VOLUME 87.2 fl (80-96); MEAN PLT VOLUME 9.6 fl (7.5-11.1); MONO % 9.8 % (3.8-10.2); NEUT % 72.5 % (42.8-82.8); PLATELET COUNT 356 K/MM3 (134-434); RBC 5.37 M/mm3 (4.00-5.60); RDW 15.1 % (11.9-15.9); WHITE BLOOD COUNT 8.8 K/mm3 (4.0-10.8)
[2020-02-01 14:09] VITALS: TEMP 98.2; BMI 45.9
[2020-02-01 14:11] LABS: ALBUMIN 3.5 g/dl (3.4-5.0); BILIRUBIN,TOTAL 1.1 mg/dl (0.2-1); CALCIUM 8.8 mg/dl (8.5-10); CREATININE 1.7 mg/dl (0.55-1.3); POTASSIUM 4.2 mmol/L (3.5-5.1); TOT PROT 7.2 g/dl (6.4-8.2)
[2020-02-01] MEDS ORDERED: INSULIN REGULAR HUMAN 100 UNITS/ML *VIAL SQ ONE (14:57)
[2020-02-01] MEDS ORDERED: INSULIN REGULAR HUMAN 100 UNITS/ML *VIAL ONE (15:04)
[2020-02-01 16:27] VITALS: PULSE 96
[2020-02-01 17:10] VITALS: BP 120/54
--- NOTE | 2020-02-02 13:39 | EKG ---
Test Reason : Blood Pressure : / mmHG Vent. Rate : 104 BPM Atrial Rate : 104 BPM P-R Int : 152 ms QRS Dur : 094 ms QT Int : 370 ms P-R-T Axes : 039 000 052 degrees QTc Int : 486 ms SINUS TACHYCARDIA CANNOT RULE OUT ANTERIOR INFARCT , AGE UNDETERMINED ABNORMAL ECG WHEN COMPARED WITH ECG OF 02-MAY-2018 08:58, PREMATURE ATRIAL COMPLEXES ARE NO LONGER PRESENT MINIMAL CRITERIA FOR ANTERIOR INFARCT ARE NOW PRESENT T WAVE INVERSION NO LONGER EVIDENT IN INFERIOR LEADS Confirmed by WILLY MIN MD ([id number]) on 02/02/2020 1:38:49 PM Referred By: MD PALMER Confirmed By:WILLY MIN MD
== END 2020-02-01 17:27 | disposition home or self-care (01) ==
LOC: FER 13:34
DX: R73.9 Hyperglycemia, unspecified (principal)
CPT/HCPCS: 36415; 71045-TC-FY; 80053; 82550; 82962; 84484; 85025; 93005; 99285-25

== ENCOUNTER 2020-04-26 09:43 | Emergency (ER) | payer OTHER | END 2020-04-26 11:51 | disposition home or self-care (01) | LOC: JVIRT 09:43 | DX: U07.1 COVID-19 (principal); J06.9 Acute upper respiratory infection, unspecified | CPT/HCPCS: C9803; G2251-GT; U0003 ==

== ENCOUNTER 2020-11-09 10:05 | Emergency (ER) | payer OTHER ==
[2020-11-09 10:37] VITALS: TEMP 98.6; BMI 47.3
[2020-11-09] MEDS ORDERED: ACETAMINOPHEN 500 MG TABLET (FP) PO ONE (11:35)
[2020-11-09] MEDS ORDERED: ACETAMINOPHEN 500 MG TABLET (FP) ONE (11:36)
[2020-11-09] MEDS ORDERED: traMADol HCL 50 MG TABLET PO ONE (12:36)
[2020-11-09] MEDS ORDERED: traMADol HCL 50 MG TABLET ONE (13:02)
[2020-11-09] MEDS ORDERED: KETOROLAC TROMETHAMINE 60 MG/2 ML VIAL IM ONE (13:54)
[2020-11-09] MEDS ORDERED: KETOROLAC TROMETHAMINE 60 MG/2 ML VIAL ONE (13:58)
[2020-11-09 14:05] LABS: BASO % 0.4 % (0-2.0); EOS % 0.4 % (0-4.5); HEMATOCRIT 39.6 % (35.4-49); HEMOGLOBIN 13.4 GM/dl (11.7-16.9); LYMPH % 10.4 % (8-40); MCH 28.9 pg (25.7-33.7); MCHC 33.7 g/dl (32.0-35.9); MEAN CELL VOLUME 85.6 fl (80-96); MEAN PLT VOLUME 9.2 fl (7.5-11.1); MONO % 9.8 % (3.8-10.2); PLATELET COUNT 248 10^3/uL (134-434); RBC 4.63 M/mm3 (4.00-5.60); RDW 15.3 % (11.9-15.9); WHITE BLOOD COUNT 8.1 K/mm3 (4.0-10.8)
[2020-11-09 14:12] LABS: ALBUMIN 3.5 g/dl (3.4-5.0); ALK PHOS 70 U/L (45-117); ANION GAP 10 MMOL/L (8-16); BILIRUBIN,TOTAL 0.7 mg/dl (0.2-1); CALCIUM 8.2 mg/dl (8.5-10); CHLORIDE 94 mmol/L (98-107); CO2 27 mmol/L (21-32); CREATININE 0.8 mg/dl (0.55-1.3); GLUCOSE,RANDOM 322 mg/dl (74-106); SGOT/AST 15 U/L (15-37); SGPT/ALT 15 U/L (13-61); SODIUM 131 mmol/L (136-145); TOT PROT 7.3 g/dl (6.4-8.2)
[2020-11-09 14:58] VITALS: BP 140/77; PULSE 80
== END 2020-11-09 16:02 | disposition home or self-care (01) ==
LOC: FER 10:05
PROC: 3E0233Z Introduction of Anti-inflammatory into Muscle, Percutaneous Approach (ICD-10-PCS; principal; 2020-11-09)
DX: M25.512 Pain in left shoulder (principal)
CPT/HCPCS: 36415; 73030-TC-LT-FY; 80053; 82550; 84484; 85025; 93005; 99285-25

== ENCOUNTER 2020-11-15 17:21 | Inpatient (IN) | payer OTHER ==
[2020-11-15 19:22] LABS: BASO % 0.6 % (0-2.0); HEMATOCRIT 36.6 % (35.4-49); HEMOGLOBIN 12.2 GM/dl (11.7-16.9); LYMPH % 15.1 % (8-40); MCHC 33.4 g/dl (32.0-35.9); MEAN CELL VOLUME 86.7 fl (80-96); MEAN PLT VOLUME 9.4 fl (7.5-11.1); MONO % 15.5 % (3.8-10.2); NEUT % 67.8 % (42.8-82.8); PLATELET COUNT 276 10^3/uL (134-434); RBC 4.22 M/mm3 (4.00-5.60); RDW 15.8 % (11.9-15.9); WHITE BLOOD COUNT 7.3 K/mm3 (4.0-10.8)
[2020-11-15 19:32] LABS: ACTIVATED PTT 28.2 SECONDS (25.2-36.5)
[2020-11-15 19:34] LABS: ALBUMIN 3.1 g/dl (3.4-5.0); ALK PHOS 80 U/L (45-117); ANION GAP 10 MMOL/L (8-16); BILIRUBIN,TOTAL 0.5 mg/dl (0.2-1); CALCIUM 7.8 mg/dl (8.5-10); CHLORIDE 91 mmol/L (98-107); CO2 28 mmol/L (21-32); GLUCOSE,RANDOM 296 mg/dl (74-106); MAGNESIUM 2.1 mg/dL (1.8-2.4); SGOT/AST 16 U/L (15-37); SGPT/ALT 14 U/L (13-61); SODIUM 129 mmol/L (136-145); TOT PROT 6.8 g/dl (6.4-8.2)
[2020-11-15 19:36] LABS: INR 1.22 (0.82-1.09); PROTHROMBIN TIME (PATIENT) 13.5 SEC (10.2-13.0)
[2020-11-16 00:33] VITALS: BMI 47.2
[2020-11-16] MEDS: ACETAMINOPHEN 1000 MG/100 ML VIAL (NON FORMULARY) IVPB PRN ×2 (01:22→22:17)
[2020-11-16] MEDS: INSULIN (NOVOLOG) ASPART 100 UNITS/ML 10ML VIAL SQ SCH ×4 (06:11→21:26)
[2020-11-16 08:06] LABS: BASO % 0.1 % (0-2.0); EOS % 0.9 % (0-4.5); HEMOGLOBIN 11.8 GM/dl (11.7-16.9); LYMPH % 14.2 % (8-40); MCH 28.5 pg (25.7-33.7); MCHC 33.6 g/dl (32.0-35.9); MEAN PLT VOLUME 8.9 fl (7.5-11.1); MONO % 15.3 % (3.8-10.2); NEUT % 69.5 % (42.8-82.8); PLATELET COUNT 215 10^3/uL (134-434); RBC 4.12 M/mm3 (4.00-5.60); WHITE BLOOD COUNT 6.1 K/mm3 (4.0-10.8)
[2020-11-16 08:13] LABS: CALCIUM 7.9 mg/dl (8.5-10); CREATININE 0.8 mg/dl (0.55-1.3)
[2020-11-16] MEDS ORDERED: ALBUTEROL SO4 HFA INHALER IH PRN ×2 (09:32→11:25)
[2020-11-16] MEDS ORDERED: ALPRAZolam 1 MG TABLET PO SCH (10:00)
[2020-11-16] MEDS ORDERED: BUDESONIDE/FORMETEROL FUMARATE 160/4.5 mcg INHALER IH SCH (10:00)
[2020-11-16] MEDS ORDERED: ALPRAZolam 1 MG TABLET PO PRN ×2 (10:14)
[2020-11-16] MEDS: ASPIRIN COATED 81 MG TABLET.EC PO SCH (10:54)
[2020-11-16] MEDS: LOSARTAN 50MG/HCTZ 12.5MG 1 TAB PO SCH (10:54)
[2020-11-16] MEDS: METOPROLOL TARTRATE 25 MG TABLET (FP) PO SCH (10:54)
[2020-11-16] MEDS: FAMOTIDINE 20 MG TABLET PO SCH (10:54)
[2020-11-16] MEDS: ENOXAPARIN NA (PORCINE) 60 MG/0.6 ML DISP.SYRIN SQ SCH ×2 (10:55→21:30)
[2020-11-16] MEDS ORDERED: PATIENT'S OWN MEDICATION (NON-FORMULARY) (Losartan/Hydrochlorothiazide [Losartan-Hctz 100- PO SCH (11:30)
[2020-11-16] MEDS: ATORVASTATIN CA 80 MG TABLET (FP) PO SCH (21:25)
[2020-11-16] MEDS: INSULIN (LEVEMIR) 100 UNITS/ML UNITS SQ SCH (22:10)
[2020-11-17] MEDS ORDERED: PT OWN MED DRAWER 7, Y5N ONE ×2 (06:21→10:14)
[2020-11-17] MEDS: INSULIN (NOVOLOG) ASPART 100 UNITS/ML 10ML VIAL SQ SCH ×4 (06:42→21:46)
[2020-11-17] MEDS ORDERED: LEVOTHYROXINE NA 100 MCG TABLET (FP) PO SCH ×2 (07:00→14:17)
[2020-11-17] MEDS ORDERED: INSULIN (LEVEMIR) 100 UNITS/ML UNITS SQ SCH (07:00)
[2020-11-17] MEDS: LOSARTAN 50MG/HCTZ 12.5MG 1 TAB PO SCH ×2 (10:11→11:31)
[2020-11-17] MEDS: FAMOTIDINE 20 MG TABLET PO SCH (10:11)
[2020-11-17] MEDS: ASPIRIN COATED 81 MG TABLET.EC PO SCH (10:11)
[2020-11-17] MEDS: METOPROLOL TARTRATE 25 MG TABLET (FP) PO SCH ×2 (10:11→11:31)
[2020-11-17] MEDS: ENOXAPARIN NA (PORCINE) 60 MG/0.6 ML DISP.SYRIN SQ SCH ×2 (10:12→21:52)
[2020-11-17] MEDS: INSULIN (LEVEMIR) 100 UNITS/ML UNITS SQ SCH ×2 (10:13→21:48)
[2020-11-17] MEDS: BUDESONIDE/FORMETEROL FUMARATE 160/4.5 mcg INHALER IH SCH (10:15)
[2020-11-17 10:32] LABS: CALCIUM 8.5 mg/dl (8.5-10); CREATININE 0.9 mg/dl (0.55-1.3)
[2020-11-17] MEDS: methylPREDNISolone NA SUCC 40 MG/1 ML VIAL IVPUSH SCH ×2 (13:00→17:01)
[2020-11-17] MEDS: ALBUTEROL SO4 2.5/IPRATROPIUM 0.5 INH SOL 3 ML VIAL.NEB. NEB SCH ×3 (13:23→21:49)
[2020-11-17] MEDS ORDERED: SODIUM CHLORIDE 1,000 ML IV SCH ×2 (14:00)
[2020-11-17 16:39] LABS: EPITHELIAL CELLS RARE /hpf
[2020-11-17 17:27] LABS: CREATININE, URINE RANDOM 316.2 mg/dL
[2020-11-17] MEDS: ATORVASTATIN CA 80 MG TABLET (FP) PO SCH (21:49)
[2020-11-17] MEDS ORDERED: INSULIN (NOVOLOG) ASPART 100 UNITS/ML 10ML VIAL SQ ONE (23:25)
[2020-11-18] MEDS: methylPREDNISolone NA SUCC 40 MG/1 ML VIAL IVPUSH SCH ×2 (01:10→09:56)
[2020-11-18] MEDS ORDERED: PT OWN MED DRAWER 7, Y5N ONE (06:30)
[2020-11-18] MEDS: INSULIN (NOVOLOG) ASPART 100 UNITS/ML 10ML VIAL SQ SCH ×3 (06:33→15:40)
[2020-11-18] MEDS: ALBUTEROL SO4 2.5/IPRATROPIUM 0.5 INH SOL 3 ML VIAL.NEB. NEB SCH ×3 (08:54→15:30)
[2020-11-18] MEDS: FAMOTIDINE 20 MG TABLET PO SCH (09:56)
[2020-11-18] MEDS: LOSARTAN 50MG/HCTZ 12.5MG 1 TAB PO SCH (09:56)
[2020-11-18] MEDS: METOPROLOL TARTRATE 25 MG TABLET (FP) PO SCH (09:57)
[2020-11-18] MEDS: ASPIRIN COATED 81 MG TABLET.EC PO SCH (09:57)
[2020-11-18] MEDS: INSULIN (LEVEMIR) 100 UNITS/ML UNITS SQ SCH (09:58)
[2020-11-18] MEDS: BUDESONIDE/FORMETEROL FUMARATE 160/4.5 mcg INHALER IH SCH (09:59)
[2020-11-18] MEDS: ENOXAPARIN NA (PORCINE) 60 MG/0.6 ML DISP.SYRIN SQ SCH (09:59)
[2020-11-18 11:27] LABS: BLOOD UREA NITROGEN 19.7 mg/dL (7-18); CALCIUM 8.6 mg/dL (8.5-10.1)
[2020-11-18 14:49] VITALS: BP 108/73; PULSE 91
[2020-11-18 14:51] VITALS: TEMP 97.9
== END 2020-11-18 16:00 | disposition home or self-care (01) | DRG 144 ==
LOC: SUPCPDRO 17:21 → FER 17:21 → FM/S 23:23 → UNDOADMOB 23:23 → FM/S 11-16 06:10
PROVIDERS: ADMIT Internal Medicine; ATTEND Nurse Practitioner Family
DX: J98.01 Acute bronchospasm (principal); E11.9 Type 2 diabetes mellitus without complications; E78.5 Hyperlipidemia, unspecified; G47.33 Obstructive sleep apnea (adult) (pediatric); E03.9 Hypothyroidism, unspecified; Z91.14 Patient's other noncompliance with medication regimen; E66.01 Morbid (severe) obesity due to excess calories; D47.Z2 Castleman disease; I25.10 Atherosclerotic heart disease of native coronary artery without angina pectoris; I11.0 Hypertensive heart disease with heart failure; I50.32 Chronic diastolic (congestive) heart failure; I31.3 Pericardial effusion (noninflammatory); Z85.850 Personal history of malignant neoplasm of thyroid; E87.1 Hypo-osmolality and hyponatremia
CPT/HCPCS: 36415; 71046-TC-FY; 71275-TC; 74174-TC; 80048; 80053; 81003; 81015; 82550; 82570; 82962; 83036; 83615; 83735; 83880; 83930; 83935; 84300; 84439; 84443; 84484; 85025; 85379; 85610; 85730; 87899; 93005; 93306-TC; 94640; 99285-25; C9803; J0131; Q9967; U0003; U0005

== ENCOUNTER 2021-02-15 02:08 | Emergency (ER) | payer OTHER ==
[2021-02-15 02:15] VITALS: BP 113/76; PULSE 98; TEMP 98.7; BMI 47.4
[2021-02-15] MEDS ORDERED: KETOROLAC TROMETHAMINE 30 MG/1 ML VIAL IVPUSH ONE (02:26)
[2021-02-15] MEDS ORDERED: KETOROLAC TROMETHAMINE 30 MG/1 ML VIAL ONE (02:27)
[2021-02-15 03:20] LABS: BASO % 0.9 % (0-2.0); EOS % 0.6 % (0-4.5); HEMATOCRIT 32.7 % (35.4-49); HEMOGLOBIN 11.3 GM/dL (11.7-16.9); LYMPH % 11.1 % (8-40); MCH 26.9 pg (25.7-33.7); MCHC 34.4 g/dl (32.0-35.9); MEAN CELL VOLUME 78.2 fl (80-96); MEAN PLT VOLUME 8.5 fl (7.5-11.1); MONO % 19.5 % (3.8-10.2); NEUT % 67.9 % (42.8-82.8); PLATELET COUNT 233 10^3/uL (134-434); RBC 4.18 M/mm3 (4.00-5.60); RDW 17.7 % (11.9-15.9); WHITE BLOOD COUNT 9.4 K/mm3 (4.0-10.0)
[2021-02-15 03:38] LABS: CHLORIDE 93 mmol/L (98-107); SODIUM 130 mmol/L (136-145)
[2021-02-15 03:40] LABS: CALCIUM 7.9 mg/dL (8.5-10.1)
[2021-02-15 03:41] LABS: ALBUMIN 2.5 g/dl (3.4-5.0); ANION GAP 7 MMOL/L (8-16); BLOOD UREA NITROGEN 22.5 mg/dL (7-18); CO2 31 mmol/L (21-32); GLUCOSE,RANDOM 222 mg/dL (74-106)
[2021-02-15 03:44] LABS: SGOT/AST 20 U/L (15-37); SGPT/ALT 19 U/L (13-61)
[2021-02-15 03:45] LABS: BILIRUBIN,TOTAL 0.5 mg/dL (0.2-1); TOT PROT 6.9 g/dl (6.4-8.2)
[2021-02-15 03:46] LABS: ALK PHOS 83 U/L (45-117)
[2021-02-15] MEDS ORDERED: ACETAMINOPHEN 500 MG TABLET (FP) PO ONE (03:56)
[2021-02-15] MEDS ORDERED: AMOX TR/POT CLAV 500MG/125MG TABLETS (FP) PO ONE (04:01)
[2021-02-15] MEDS ORDERED: AMOX TR/POT CLAV 500MG/125MG TABLETS (FP) ONE (04:03)
[2021-02-15] MEDS ORDERED: ACETAMINOPHEN 500 MG TABLET (FP) ONE (04:03)
[2021-02-15 09:53] LABS: ANISOCYTOSIS 1+; MACROCYTOSIS 0; PLATELET ESTIMATE NORMAL; TEAR DROP CELLS 1+
== END 2021-02-15 04:16 | disposition home or self-care (01) ==
LOC: FER 02:08
DX: R07.89 Other chest pain (principal); K08.89 Other specified disorders of teeth and supporting structures
CPT/HCPCS: 36415; 80053; 82550; 84484; 85025; 93005; 99283-25

== ENCOUNTER 2021-03-03 08:08 | Inpatient (IN) | payer OTHER ==
[2021-03-03 09:36] LABS: VENOUS BASE EXCESS 2.6 mmol/L (-2-2); VENOUS PCO2 34.8 mmHg (38-52); VENOUS PH 7.49 (7.310-7.410)
[2021-03-03 09:47] LABS: HEMOGLOBIN 9.7 GM/dL (11.7-16.9); MCH 26.4 pg (25.7-33.7); MCHC 33.6 g/dl (32.0-35.9); MEAN CELL VOLUME 78.8 fl (80-96); MEAN PLT VOLUME 8.4 fl (7.5-11.1); PLATELET COUNT 284 10^3/uL (134-434); RBC 3.68 M/mm3 (4.00-5.60); RDW 18.3 % (11.9-15.9); WHITE BLOOD COUNT 7.2 K/mm3 (4.0-10.0)
[2021-03-03 09:59] LABS: INR 1.3 (0.83-1.09); PROTHROMBIN TIME (PATIENT) 15.3 SEC (9.7-13.0)
[2021-03-03 10:02] LABS: ACTIVATED PTT 28.1 SECONDS (25.2-36.5)
[2021-03-03 10:08] LABS: CHLORIDE 94 mmol/L (98-107); SODIUM 132 mmol/L (136-145)
[2021-03-03 10:10] LABS: BLOOD UREA NITROGEN 16.6 mg/dL (7-18); CALCIUM 8.2 mg/dL (8.5-10.1); GLUCOSE,RANDOM 201 mg/dL (74-106)
[2021-03-03 10:11] LABS: ALBUMIN 2.5 g/dl (3.4-5.0); ANION GAP 6 MMOL/L (8-16); CO2 32 mmol/L (21-32); MAGNESIUM 2.1 mg/dL (1.8-2.4)
[2021-03-03 10:14] LABS: SGOT/AST 29 U/L (15-37)
[2021-03-03 10:15] LABS: BILIRUBIN,TOTAL 0.7 mg/dL (0.2-1); LDH 343 U/L (87-246); TOT PROT 7.1 g/dl (6.4-8.2)
[2021-03-03 10:16] LABS: ALK PHOS 76 U/L (45-117); N-TERMINAL BNP 306.7 pg/ml (5-125)
[2021-03-03] MEDS ORDERED: ALPRAZolam 1 MG TABLET PO ONE (10:19)
[2021-03-03] MEDS ORDERED: ALPRAZolam 1 MG TABLET PO PRN (10:19)
[2021-03-03 10:27] LABS: SGPT/ALT 20 U/L (13-61)
[2021-03-03 11:13] LABS: ANISOCYTOSIS 0; HELMET CELLS 0; HOWELL-JOLLY BODIES 0; MACROCYTOSIS 0; OVALOCYTE 0; PLATELET ESTIMATE NORMAL; ROULEAU 0; SICKELED CELLS 0; TARGET CELLS 0; TEAR DROP CELLS 0; TOXIC GRANULATION 0
[2021-03-03] MEDS ORDERED: FAMOTIDINE 20 MG/50 ML IVPB 20 MG/50 ML MG IVPB ONE ×2 (11:27→11:28)
[2021-03-03] MEDS ORDERED: FAMOTIDINE 10 MG TABLET PO ONE (13:04)
[2021-03-03] MEDS ORDERED: FAMOTIDINE 20 MG TABLET ONE (13:33)
[2021-03-04] MEDS: ACETAMINOPHEN 1000 MG/100 ML VIAL IVPB PRN ×2 (00:23→06:50)
[2021-03-04] MEDS ORDERED: MAG HYDROX/AL HYDROX/SIMETH 30 ML UNIT-DOSE CUP PO PRN (00:41)
[2021-03-04 03:28] VITALS: BMI 43.2
[2021-03-04] MEDS: metFORMIN HCL 500 MG TABLET (FP) PO SCH ×2 (06:47→17:13)
[2021-03-04] MEDS: LEVOTHYROXINE 200 MCG, LEVOTHYROXINE 75 MCG PO SCH (06:49)
[2021-03-04] MEDS: INSULIN SLIDING SCALE (NOVOLOG) 1 VIAL SQ SCH ×4 (06:50→21:27)
[2021-03-04] MEDS ORDERED: LEVOTHYROXINE NA 88 MCG TABLET (FP) PO SCH (07:00)
[2021-03-04 07:32] LABS: HEMATOCRIT 29.1 % (35.4-49); HEMOGLOBIN 9.5 GM/dL (11.7-16.9); MCH 25.7 pg (25.7-33.7); MCHC 32.8 g/dl (32.0-35.9); MEAN CELL VOLUME 78.3 fl (80-96); MEAN PLT VOLUME 8.4 fl (7.5-11.1); PLATELET COUNT 264 10^3/uL (134-434); RBC 3.72 M/mm3 (4.00-5.60); WHITE BLOOD COUNT 5.8 K/mm3 (4.0-10.0)
[2021-03-04 08:01] LABS: CALCIUM 8.6 mg/dL (8.5-10.1)
[2021-03-04 08:02] LABS: ALBUMIN 2.3 g/dl (3.4-5.0); BLOOD UREA NITROGEN 18.8 mg/dL (7-18)
[2021-03-04 08:04] LABS: CREATININE 0.8 mg/dL (0.55-1.3)
[2021-03-04 08:06] LABS: BILIRUBIN,TOTAL 0.7 mg/dL (0.2-1)
[2021-03-04 08:08] LABS: TOT PROT 6.6 g/dl (6.4-8.2)
[2021-03-04 09:44] LABS: ANISOCYTOSIS 1+; MACROCYTOSIS 0; OVALOCYTE 1+; PLATELET ESTIMATE NORMAL; TARGET CELLS 1+; TEAR DROP CELLS 1+
[2021-03-04] MEDS ORDERED: LEVOTHYROXINE NA 200 MCG TABLET PO SCH (10:00)
[2021-03-04] MEDS ORDERED: ALPRAZolam 1 MG TABLET PO PRN (10:00)
[2021-03-04] MEDS ORDERED: PATIENT'S OWN MEDICATION (NON-FORMULARY) (Losartan/Hydrochlorothiazide [Losartan-Hctz 100- PO SCH (10:00)
[2021-03-04] MEDS ORDERED: BUDESONIDE/FORMETEROL FUMARATE 160/4.5 mcg INHALER IH SCH (10:00)
[2021-03-04] MEDS ORDERED: LOSARTAN POTASSIUM 50 MG TABLET PO SCH (10:00)
[2021-03-04] MEDS ORDERED: PANTOPRAZOLE 40 MG TABLET PO SCH (10:00)
[2021-03-04] MEDS ORDERED: predniSONE 10 MG TABLET (UD) PO SCH (10:00)
[2021-03-04] MEDS: ENOXAPARIN NA (PORCINE) 40 MG/0.4 ML DISP.SYRIN SQ SCH (10:14)
[2021-03-04] MEDS: ASPIRIN COATED 81 MG TABLET.EC PO SCH (10:15)
[2021-03-04] MEDS: HYDROCHLOROTHIAZIDE 12.5 MG CAPSULE (FP) PO SCH (10:15)
[2021-03-04] MEDS ORDERED: PT OWN MED DRAWER 7, Y5N ONE (12:32)
[2021-03-04] MEDS: BUDESONIDE/FORMETEROL FUMARATE 160/4.5 mcg INHALER IH SCH ×2 (12:36→21:29)
[2021-03-04] MEDS: oxyCODONE HCL 5 MG TABLET PO PRN ×2 (15:04→23:40)
[2021-03-04] MEDS: methylPREDNISolone NA SUCC 40 MG/1 ML VIAL IVPUSH SCH ×2 (16:27→17:27)
[2021-03-04] MEDS ORDERED: INSULIN (NOVOLOG) ASPART 100 UNITS/ML 10ML VIAL ONE (21:24)
[2021-03-04] MEDS: ATORVASTATIN CA 80 MG TABLET (FP) PO SCH (21:27)
[2021-03-05] MEDS: methylPREDNISolone NA SUCC 40 MG/1 ML VIAL IVPUSH SCH ×3 (01:05→17:26)
[2021-03-05] MEDS ORDERED: PT OWN MED DRAWER 7, Y5N ONE (05:17)
[2021-03-05] MEDS: INSULIN SLIDING SCALE (NOVOLOG) 1 VIAL SQ SCH ×4 (06:10→22:00)
[2021-03-05] MEDS: metFORMIN HCL 500 MG TABLET (FP) PO SCH ×2 (06:10→17:25)
[2021-03-05] MEDS: LEVOTHYROXINE 200 MCG, LEVOTHYROXINE 75 MCG PO SCH (06:10)
[2021-03-05] MEDS: ENOXAPARIN NA (PORCINE) 40 MG/0.4 ML DISP.SYRIN SQ SCH (09:53)
[2021-03-05] MEDS: ASPIRIN COATED 81 MG TABLET.EC PO SCH (09:53)
[2021-03-05] MEDS: HYDROCHLOROTHIAZIDE 12.5 MG CAPSULE (FP) PO SCH (09:53)
[2021-03-05] MEDS: PANTOPRAZOLE 40 MG TABLET PO SCH ×2 (09:54→21:50)
[2021-03-05] MEDS: BUDESONIDE/FORMETEROL FUMARATE 160/4.5 mcg INHALER IH SCH ×2 (09:56→21:52)
[2021-03-05] MEDS: SIMETHICONE 80 MG TAB.CHEW (FP) PO SCH ×4 (10:50→21:50)
[2021-03-05] MEDS ORDERED: METOCLOPRAMIDE HCL 10 MG TABLET (FP) PO SCH (11:00)
[2021-03-05] MEDS: oxyCODONE HCL 5 MG TABLET PO PRN ×2 (16:12→21:50)
[2021-03-05 17:06] LABS: BASO % 0.6 % (0-2.0); EOS % 0.2 % (0-4.5); HEMATOCRIT 28.3 % (35.4-49); HEMOGLOBIN 9.3 GM/dL (11.7-16.9); LYMPH % 11.6 % (8-40); MCH 25.6 pg (25.7-33.7); MEAN CELL VOLUME 77.3 fl (80-96); MEAN PLT VOLUME 8.2 fl (7.5-11.1); NEUT % 72.6 % (42.8-82.8); PLATELET COUNT 306 10^3/uL (134-434); RBC 3.66 M/mm3 (4.00-5.60); RDW 18.5 % (11.9-15.9); WHITE BLOOD COUNT 8.1 K/mm3 (4.0-10.0)
[2021-03-05 17:22] LABS: CALCIUM 8.9 mg/dL (8.5-10.1); MAGNESIUM 2.2 mg/dL (1.8-2.4)
[2021-03-05 17:23] LABS: ALBUMIN 2.4 g/dl (3.4-5.0); BLOOD UREA NITROGEN 30.2 mg/dL (7-18)
[2021-03-05 17:24] LABS: URIC ACID 6.8 mg/dL (2.6-7.2)
[2021-03-05 17:25] LABS: CREATININE 1.1 mg/dL (0.55-1.3)
[2021-03-05 17:26] LABS: PHOSPHOROUS 4.4 mg/dL (2.5-4.9); TOT PROT 6.8 g/dl (6.4-8.2)
[2021-03-05 17:28] LABS: BILIRUBIN,TOTAL 0.6 mg/dL (0.2-1)
[2021-03-05] MEDS: ATORVASTATIN CA 80 MG TABLET (FP) PO SCH (21:50)
[2021-03-06] MEDS: methylPREDNISolone NA SUCC 40 MG/1 ML VIAL IVPUSH SCH (01:22)
[2021-03-06] MEDS: LEVOTHYROXINE 200 MCG, LEVOTHYROXINE 75 MCG PO SCH (06:33)
[2021-03-06] MEDS: metFORMIN HCL 500 MG TABLET (FP) PO SCH (06:33)
[2021-03-06] MEDS: INSULIN SLIDING SCALE (NOVOLOG) 1 VIAL SQ SCH ×2 (06:36→11:49)
[2021-03-06 07:05] LABS: BASO % 0.1 % (0-2.0); HEMATOCRIT 30.5 % (35.4-49); HEMOGLOBIN 9.9 GM/dL (11.7-16.9); MCH 25.5 pg (25.7-33.7); MCHC 32.5 g/dl (32.0-35.9); MEAN CELL VOLUME 78.5 fl (80-96); MEAN PLT VOLUME 8.4 fl (7.5-11.1); NEUT % 85.9 % (42.8-82.8); PLATELET COUNT 294 10^3/uL (134-434); RBC 3.88 M/mm3 (4.00-5.60); RDW 18.6 % (11.9-15.9); WHITE BLOOD COUNT 6.8 K/mm3 (4.0-10.0)
[2021-03-06 07:20] LABS: BLOOD UREA NITROGEN 32.1 mg/dL (7-18); CALCIUM 8.5 mg/dL (8.5-10.1); MAGNESIUM 2.4 mg/dL (1.8-2.4)
[2021-03-06 07:24] LABS: CREATININE 0.8 mg/dL (0.55-1.3)
[2021-03-06] MEDS: PANTOPRAZOLE 40 MG TABLET PO SCH (09:38)
[2021-03-06] MEDS: HYDROCHLOROTHIAZIDE 12.5 MG CAPSULE (FP) PO SCH (09:38)
[2021-03-06] MEDS: SIMETHICONE 80 MG TAB.CHEW (FP) PO SCH (09:39)
[2021-03-06] MEDS: ASPIRIN COATED 81 MG TABLET.EC PO SCH (09:39)
[2021-03-06] MEDS: ENOXAPARIN NA (PORCINE) 40 MG/0.4 ML DISP.SYRIN SQ SCH (09:40)
[2021-03-06] MEDS ORDERED: predniSONE 20 MG TABLET (UD) PO SCH (10:00)
[2021-03-06] MEDS: BUDESONIDE/FORMETEROL FUMARATE 160/4.5 mcg INHALER IH SCH (10:33)
[2021-03-06 15:01] VITALS: BP 97/66; PULSE 94; TEMP 98.6
[2021-03-07 07:08] LABS: IGA IMMUNOGLOBULIN 572 mg/dL (90-386); IGG QN IMMUNOGLOBULIN 1460 mg/dL (603-1613); IGM QN SERUM 66 mg/dL (20-172)
== END 2021-03-06 16:13 | disposition home or self-care (01) | DRG 694 ==
LOC: JER 08:08 → JERBED 13:36 → OBSVTOIN 22:47 → J4W 23:20
PROVIDERS: ADMIT Family Medicine; ATTEND Family Medicine
DX: D47.Z2 Castleman disease (principal); R06.00 Dyspnea, unspecified; E03.9 Hypothyroidism, unspecified; I11.0 Hypertensive heart disease with heart failure; I50.32 Chronic diastolic (congestive) heart failure; G47.30 Sleep apnea, unspecified; K21.9 Gastro-esophageal reflux disease without esophagitis; I25.10 Atherosclerotic heart disease of native coronary artery without angina pectoris; E78.5 Hyperlipidemia, unspecified; I10 Essential (primary) hypertension; G47.33 Obstructive sleep apnea (adult) (pediatric); Z95.5 Presence of coronary angioplasty implant and graft; E66.01 Morbid (severe) obesity due to excess calories; Z68.41 Body mass index [BMI] 40.0-44.9, adult; E11.9 Type 2 diabetes mellitus without complications; F41.9 Anxiety disorder, unspecified; R16.1 Splenomegaly, not elsewhere classified; D64.9 Anemia, unspecified; R59.0 Localized enlarged lymph nodes; N40.0 Benign prostatic hyperplasia without lower urinary tract symptoms; Z85.850 Personal history of malignant neoplasm of thyroid
CPT/HCPCS: 36415; 71045-TC-FY; 71275-TC; 80048; 80053; 80061; 82550; 82728; 82784; 82803; 82962; 83036; 83540; 83550; 83605; 83615; 83735; 83880; 83883; 84100; 84155; 84165; 84439; 84443; 84484; 84550; 85025; 85610; 85651; 85730; 86140; 86334; 86850; 86900; 86901; 87799; 93005; 93010; 99285-25; C9803; G0378; J0131; U0003; U0005

== ENCOUNTER 2021-03-16 16:26 | Inpatient (IN) | payer OTHER ==
[2021-03-16] MEDS ORDERED: SODIUM CHLORIDE 0.9% 500 ML INFUS.BAG IV ONE (17:46)
[2021-03-16] MEDS ORDERED: ALBUTEROL SO4 2.5/IPRATROPIUM 0.5 INH SOL 3 ML VIAL.NEB. NEB ONE (17:50)
[2021-03-16] MEDS: ALBUTEROL SO4 2.5/IPRATROPIUM 0.5 INH SOL 3 ML VIAL.NEB. NEB SCH ×4 (18:00→18:34)
[2021-03-16 18:08] LABS: VENOUS BASE EXCESS 4.6 mmol/L (-2-2); VENOUS PCO2 49.1 mmHg (38-52); VENOUS PH 7.407 (7.310-7.410)
[2021-03-16 18:19] LABS: INR 1.39 (0.83-1.09); PROTHROMBIN TIME (PATIENT) 15.6 SEC (9.7-13.0)
[2021-03-16 18:21] LABS: BASO % 0.5 % (0-2.0); EOS % 0.2 % (0-4.5); HEMATOCRIT 27.9 % (35.4-49); HEMOGLOBIN 9.3 GM/dL (11.7-16.9); LYMPH % 6.7 % (8-40); MCH 25.8 pg (25.7-33.7); MCHC 33.4 g/dl (32.0-35.9); MEAN CELL VOLUME 77.1 fl (80-96); MEAN PLT VOLUME 8.2 fl (7.5-11.1); MONO % 16.4 % (3.8-10.2); NEUT % 76.2 % (42.8-82.8); PLATELET COUNT 222 10^3/uL (134-434); RBC 3.61 M/mm3 (4.00-5.60); RDW 20.1 % (11.9-15.9); WHITE BLOOD COUNT 8.9 K/mm3 (4.0-10.0)
[2021-03-16 18:22] LABS: ACTIVATED PTT 26.9 SECONDS (25.2-36.5)
[2021-03-16 18:32] LABS: CHLORIDE 96 mmol/L (98-107); SODIUM 134 mmol/L (136-145)
[2021-03-16 18:37] LABS: ALBUMIN 2.3 g/dl (3.4-5.0); ANION GAP 5 MMOL/L (8-16); BLOOD UREA NITROGEN 21.6 mg/dL (7-18); CALCIUM 8.3 mg/dL (8.5-10.1); CO2 32 mmol/L (21-32)
[2021-03-16 18:38] LABS: GLUCOSE,RANDOM 193 mg/dL (74-106)
[2021-03-16 18:40] LABS: CREATININE 0.9 mg/dL (0.55-1.3); SGPT/ALT 18 U/L (13-61)
[2021-03-16 18:41] LABS: SGOT/AST 21 U/L (15-37)
[2021-03-16 18:42] LABS: BILIRUBIN,TOTAL 0.8 mg/dL (0.2-1); TOT PROT 6.7 g/dl (6.4-8.2)
[2021-03-16 18:43] LABS: ALK PHOS 90 U/L (45-117)
[2021-03-16] MEDS ORDERED: ACETAMINOPHEN 325 MG TABLET (FP) PO PRN (21:50)
[2021-03-16] MEDS ORDERED: POLYETHYLENE GLYCOL (HEALTHYLAX) 3350 17 GM PACKET PO PRN (21:50)
[2021-03-17] MEDS: INSULIN SLIDING SCALE (NOVOLOG) 1 VIAL SQ SCH ×5 (00:32→22:15)
[2021-03-17 05:15] VITALS: BMI 53.8
[2021-03-17 08:22] LABS: HEMATOCRIT 28.4 % (35.4-49); HEMOGLOBIN 9.1 GM/dL (11.7-16.9); MCH 25.2 pg (25.7-33.7); MCHC 32.2 g/dl (32.0-35.9); MEAN CELL VOLUME 78.2 fl (80-96); MEAN PLT VOLUME 8.5 fl (7.5-11.1); PLATELET COUNT 202 10^3/uL (134-434); RBC 3.63 M/mm3 (4.00-5.60); RDW 20.7 % (11.9-15.9); WHITE BLOOD COUNT 6.8 K/mm3 (4.0-10.0)
[2021-03-17 08:37] LABS: CALCIUM 8.2 mg/dL (8.5-10.1)
[2021-03-17 08:38] LABS: BLOOD UREA NITROGEN 19.7 mg/dL (7-18)
[2021-03-17 08:41] LABS: CREATININE 0.8 mg/dL (0.55-1.3)
[2021-03-17] MEDS ORDERED: MAG HYDROX/AL HYDROX/SIMETH 30 ML UNIT-DOSE CUP PO PRN (10:46)
[2021-03-17] MEDS ORDERED: ALBUTEROL SO4 HFA INHALER IH PRN (10:46)
[2021-03-17] MEDS ORDERED: ALBUTEROL SO4 2.5/IPRATROPIUM 0.5 INH SOL 3 ML VIAL.NEB. NEB PRN (11:09)
[2021-03-17] MEDS: METOCLOPRAMIDE HCL 10 MG TABLET (FP) PO SCH ×3 (11:13→16:56)
[2021-03-17 11:23] LABS: ANISOCYTOSIS 2+; MACROCYTOSIS 0; PLATELET ESTIMATE NORMAL
[2021-03-17] MEDS: traMADol HCL 50 MG TABLET PO PRN ×2 (13:36→19:46)
[2021-03-17] MEDS: SIMETHICONE 80 MG TAB.CHEW (FP) PO SCH ×3 (13:37→22:15)
[2021-03-17] MEDS: methylPREDNISolone NA SUCC 40 MG/1 ML VIAL IVPUSH SCH ×2 (15:52→17:32)
[2021-03-17] MEDS ORDERED: METOCLOPRAMIDE HCL 10 MG TABLET (FP) PO SCH (17:00)
[2021-03-17] MEDS ORDERED: ACETAMINOPHEN 1000 MG/100 ML VIAL IVPB ONE (21:30)
[2021-03-17] MEDS ORDERED: predniSONE 20 MG TABLET (UD) PO SCH (22:00)
[2021-03-17] MEDS: PANTOPRAZOLE 40 MG TABLET PO SCH (22:15)
[2021-03-17] MEDS: ATORVASTATIN CA 80 MG TABLET (FP) PO SCH (22:15)
[2021-03-17] MEDS: BUDESONIDE/FORMETEROL FUMARATE 160/4.5 mcg INHALER IH SCH (22:17)
[2021-03-18] MEDS: methylPREDNISolone NA SUCC 40 MG/1 ML VIAL IVPUSH SCH ×3 (01:10→17:11)
[2021-03-18] MEDS: ALPRAZolam 1 MG TABLET PO PRN (01:20)
[2021-03-18] MEDS: oxyCODONE HCL 5 MG TABLET PO PRN ×2 (02:29→21:41)
[2021-03-18] MEDS: METOCLOPRAMIDE HCL 10 MG TABLET (FP) PO SCH ×3 (06:15→17:11)
[2021-03-18] MEDS: LEVOTHYROXINE NA 75 MCG TABLET (FP) PO SCH (06:17)
[2021-03-18] MEDS: INSULIN (LEVEMIR) 100 UNITS/ML UNITS SQ SCH (06:17)
[2021-03-18] MEDS: INSULIN SLIDING SCALE (NOVOLOG) 1 VIAL SQ SCH ×4 (06:19→21:46)
[2021-03-18] MEDS ORDERED: BUDESONIDE/FORMETEROL FUMARATE 160/4.5 mcg INHALER IH SCH (10:00)
[2021-03-18] MEDS ORDERED: predniSONE 10 MG TABLET (UD) PO SCH (10:00)
[2021-03-18] MEDS ORDERED: ASPIRIN COATED 81 MG TABLET.EC PO SCH (10:00)
[2021-03-18] MEDS: SIMETHICONE 80 MG TAB.CHEW (FP) PO SCH ×4 (10:40→21:41)
[2021-03-18] MEDS: BUDESONIDE/FORMETEROL FUMARATE 160/4.5 mcg INHALER IH SCH ×2 (10:40→21:42)
[2021-03-18] MEDS: PANTOPRAZOLE 40 MG TABLET PO SCH ×2 (10:40→21:41)
[2021-03-18] MEDS ORDERED: INSULIN (NOVOLOG) ASPART 100 UNITS/ML 10ML VIAL ONE (11:43)
[2021-03-18] MEDS: ENOXAPARIN NA (PORCINE) 40 MG/0.4 ML DISP.SYRIN SQ SCH (18:17)
[2021-03-18] MEDS: ATORVASTATIN CA 80 MG TABLET (FP) PO SCH (21:41)
[2021-03-19] MEDS: ALPRAZolam 1 MG TABLET PO PRN (00:02)
[2021-03-19] MEDS: methylPREDNISolone NA SUCC 40 MG/1 ML VIAL IVPUSH SCH ×2 (01:49→09:31)
[2021-03-19] MEDS: LEVOTHYROXINE NA 75 MCG TABLET (FP) PO SCH (06:01)
[2021-03-19] MEDS: INSULIN SLIDING SCALE (NOVOLOG) 1 VIAL SQ SCH ×4 (06:02→22:25)
[2021-03-19] MEDS: METOCLOPRAMIDE HCL 10 MG TABLET (FP) PO SCH ×3 (06:02→16:59)
[2021-03-19] MEDS: INSULIN (LEVEMIR) 100 UNITS/ML UNITS SQ SCH (06:02)
[2021-03-19] MEDS: ENOXAPARIN NA (PORCINE) 40 MG/0.4 ML DISP.SYRIN SQ SCH (09:31)
[2021-03-19] MEDS: SIMETHICONE 80 MG TAB.CHEW (FP) PO SCH ×4 (09:32→22:22)
[2021-03-19] MEDS: PANTOPRAZOLE 40 MG TABLET PO SCH ×2 (09:32→22:22)
[2021-03-19] MEDS: BUDESONIDE/FORMETEROL FUMARATE 160/4.5 mcg INHALER IH SCH ×2 (09:32→22:28)
[2021-03-19] MEDS ORDERED: INSULIN (NOVOLOG) ASPART 100 UNITS/ML 10ML VIAL ONE (11:20)
[2021-03-19 11:38] LABS: HIV INTERPRETATION NEGATIVE (NEGATIVE)
[2021-03-19] MEDS: ATORVASTATIN CA 80 MG TABLET (FP) PO SCH (22:22)
[2021-03-19] MEDS: ASPIRIN 81 MG CHEWABLE TABLETS PO SCH (23:55)
[2021-03-20 02:52] VITALS: TEMP 98.6
[2021-03-20] MEDS: ALPRAZolam 1 MG TABLET PO PRN (04:10)
[2021-03-20 06:07] VITALS: BP 123/66
[2021-03-20] MEDS: LEVOTHYROXINE NA 75 MCG TABLET (FP) PO SCH (06:15)
[2021-03-20] MEDS: METOCLOPRAMIDE HCL 10 MG TABLET (FP) PO SCH ×2 (06:15→10:28)
[2021-03-20] MEDS: INSULIN SLIDING SCALE (NOVOLOG) 1 VIAL SQ SCH ×2 (06:17→10:37)
[2021-03-20] MEDS: INSULIN (LEVEMIR) 100 UNITS/ML UNITS SQ SCH (06:30)
[2021-03-20 08:36] VITALS: PULSE 97
[2021-03-20] MEDS: oxyCODONE HCL 5 MG TABLET PO PRN ×2 (08:36)
[2021-03-20] MEDS: SIMETHICONE 80 MG TAB.CHEW (FP) PO SCH (10:27)
[2021-03-20] MEDS: ENOXAPARIN NA (PORCINE) 40 MG/0.4 ML DISP.SYRIN SQ SCH ×2 (10:28→11:01)
[2021-03-20] MEDS: ASPIRIN 81 MG CHEWABLE TABLETS PO SCH (10:28)
[2021-03-20] MEDS: PANTOPRAZOLE 40 MG TABLET PO SCH (10:28)
[2021-03-20] MEDS: BUDESONIDE/FORMETEROL FUMARATE 160/4.5 mcg INHALER IH SCH (10:38)
== END 2021-03-20 14:53 | disposition home or self-care (01) | DRG 694 ==
LOC: JER 16:26 → JERBED 18:15 → J7W 03-17 03:59
PROVIDERS: ATTEND Family Medicine
DX: D47.Z2 Castleman disease (principal); J98.59 Other diseases of mediastinum, not elsewhere classified; D64.9 Anemia, unspecified; E11.9 Type 2 diabetes mellitus without complications; E66.01 Morbid (severe) obesity due to excess calories; J44.1 Chronic obstructive pulmonary disease with (acute) exacerbation; E03.9 Hypothyroidism, unspecified; G47.33 Obstructive sleep apnea (adult) (pediatric); I25.10 Atherosclerotic heart disease of native coronary artery without angina pectoris; K21.9 Gastro-esophageal reflux disease without esophagitis; R59.0 Localized enlarged lymph nodes; Z98.61 Coronary angioplasty status; E78.5 Hyperlipidemia, unspecified; I10 Essential (primary) hypertension
CPT/HCPCS: 36415; 71045-TC-FY; 80048; 80053; 82550; 82803; 82962; 83735; 83880; 84439; 84443; 84484; 85025; 85610; 85730; 87389; 87804; 93005; 93010; 94660; 99285-25; C9803; J0131; U0003; U0005

== ENCOUNTER 2021-07-19 10:14 | Emergency (ER) | payer OTHER ==
[2021-07-19 10:36] VITALS: BMI 40.7
[2021-07-19 12:40] LABS: CALCIUM 8.6 mg/dL (8.5-10.1)
[2021-07-19 12:41] LABS: ALBUMIN 2.9 g/dl (3.4-5.0); BLOOD UREA NITROGEN 12.7 mg/dL (7-18)
[2021-07-19 12:44] LABS: CREATININE 0.8 mg/dL (0.55-1.3)
[2021-07-19 12:45] LABS: BILIRUBIN,TOTAL 0.8 mg/dL (0.2-1); TOT PROT 6.8 g/dl (6.4-8.2)
[2021-07-19 12:47] LABS: N-TERMINAL BNP 113.4 pg/ml (5-125)
[2021-07-19 12:57] LABS: ERYTHROCYTE SEDIMENTATION RATE 38 mm/hr (0-20)
[2021-07-19 13:22] LABS: ANISOCYTOSIS 2+; MACROCYTOSIS 1+
[2021-07-19 13:23] LABS: PLATELET ESTIMATE ADEQUATE
[2021-07-19 13:25] LABS: HEMATOCRIT 33.5 % (35.4-49); HEMOGLOBIN 11.2 GM/dL (11.7-16.9); MCHC 33.4 g/dl (32.0-35.9); MEAN CELL VOLUME 80.8 fl (80-96); RBC 4.14 M/mm3 (4.00-5.60); RDW 22.9 % (11.9-15.9)
[2021-07-19 13:26] LABS: PLATELET COUNT 140 10^3/uL (134-434); WHITE BLOOD COUNT 9.7 K/mm3 (4.0-10.0)
[2021-07-19 14:08] LABS: OVALOCYTE 1+
[2021-07-19] MEDS ORDERED: INSULIN SLIDING SCALE (NOVOLOG) 1 VIAL SQ SCH (16:30)
[2021-07-19 18:27] VITALS: TEMP 97.9
[2021-07-19] MEDS ORDERED: ATORVASTATIN CA 80 MG TABLET (FP) PO ONE (23:25)
[2021-07-19] MEDS ORDERED: ATORVASTATIN CA 80 MG TABLET (FP) ONE (23:37)
[2021-07-19] MEDS ORDERED: LORazepam 2 MG TABLET PO ONE (23:52)
[2021-07-19] MEDS ORDERED: LORazepam 1 MG TABLET ONE (23:55)
[2021-07-20 04:26] VITALS: BP 106/72; PULSE 98
[2021-07-20] MEDS ORDERED: LEVOTHYROXINE NA 88 MCG TABLET (FP) PO SCH (07:00)
[2021-07-20] MEDS ORDERED: LEVOTHYROXINE 200 MCG, LEVOTHYROXINE 50 MCG PO SCH (07:00)
== END 2021-07-20 04:26 | disposition short-term general hospital (02) ==
LOC: JER 10:14
DX: I31.3 Pericardial effusion (noninflammatory) (principal)
CPT/HCPCS: 36415; 71046-TC-FY; 80053; 80061; 83036; 83880; 84439; 84443; 85025; 85651; 93005; 93010; 93306-TC; 99285-25; C9803-CS; U0003; U0005

== ENCOUNTER 2021-11-09 14:04 | Emergency (ER) | payer OTHER ==
[2021-11-09 14:28] VITALS: BP 95/61; PULSE 112; RESP 20; TEMP 99.2; BMI 41.5
[2021-11-09 14:51] LABS: HEMATOCRIT 36.9 % (35.4-49); HEMOGLOBIN 12.6 G/dL (11.7-16.9); MCH 29.7 pg (25.7-33.7); MEAN CELL VOLUME 87.2 fl (80-96); MEAN PLT VOLUME 9.4 fl (7.5-11.1); PLATELET COUNT 218.9 10^3/uL (134-434); RBC 4.23 10^6/uL (4.00-5.60); RDW 17.7 % (11.9-15.9); WHITE BLOOD COUNT 1.4 10^3/uL (4.0-10.8)
[2021-11-09 14:59] LABS: ALBUMIN 3.9 g/dl (3.4-5.0); BILIRUBIN,TOTAL 0.8 mg/dl (0.2-1); CALCIUM 9.3 mg/dl (8.5-10); CREATININE 1.2 mg/dl (0.55-1.3); TOT PROT 6.8 g/dl (6.4-8.2)
[2021-11-09 15:08] LABS: PLATELET ESTIMATE ADEQUATE
[2021-11-09] MEDS ORDERED: TBO-FILGRASTIM 480 MCG/0.8 ML DISP.SYRIN SQ ONE (15:19)
== END 2021-11-09 17:14 | disposition home or self-care (01) ==
LOC: FER 14:04
DX: D70.1 Agranulocytosis secondary to cancer chemotherapy (principal)
CPT/HCPCS: 36415; 80053; 81003; 85027; 99283-25; J1447

== ENCOUNTER 2021-11-27 08:21 | Emergency (ER) | payer OTHER ==
[2021-11-27 08:31] VITALS: RESP 18; TEMP 98.6; BMI 41.5
[2021-11-27] MEDS ORDERED: ACETAMINOPHEN 500 MG TABLET (FP) PO ONE (08:41)
[2021-11-27] MEDS ORDERED: ACETAMINOPHEN 500 MG TABLET (FP) ONE (08:51)
[2021-11-27 09:24] LABS: HEMATOCRIT 33.2 % (35.4-49); HEMOGLOBIN 11.8 G/dL (11.7-16.9); MCHC 35.6 g/dl (32.0-35.9); MEAN CELL VOLUME 87.1 fl (80-96); PLATELET COUNT 187.8 10^3/uL (134-434); RBC 3.81 10^6/uL (4.00-5.60); RDW 17.8 % (11.9-15.9); WHITE BLOOD COUNT 5.7 10^3/uL (4.0-10.8)
[2021-11-27 09:32] LABS: ALBUMIN 3.3 g/dl (3.4-5.0); BILIRUBIN,TOTAL 0.4 mg/dl (0.2-1); CALCIUM 8.7 mg/dl (8.5-10); CREATININE 0.7 mg/dl (0.55-1.3); TOT PROT 5.8 g/dl (6.4-8.2)
[2021-11-27 09:39] VITALS: BP 139/87; PULSE 67
[2021-11-27 09:41] LABS: PLATELET ESTIMATE ADEQUATE
== END 2021-11-27 11:00 | disposition home or self-care (01) ==
LOC: FER 08:21
DX: I10 Essential (primary) hypertension (principal)
CPT/HCPCS: 36415; 80053; 85027; 99283-25

== ENCOUNTER 2022-02-19 11:02 | Inpatient (IN) | payer OTHER ==
[2022-02-19 11:24] VITALS: BMI 42.5
[2022-02-19 12:00] LABS: HEMATOCRIT 40.6 % (35.4-49); MCH 28.9 pg (25.7-33.7); MCHC 34.6 g/dl (32.0-35.9); MEAN CELL VOLUME 83.7 fl (80-96); PLATELET COUNT 210.4 10^3/uL (134-434); RBC 4.85 10^6/uL (4.00-5.60); RDW 15.9 % (11.9-15.9); WHITE BLOOD COUNT 1.9 10^3/uL (4.0-10.8)
[2022-02-19 12:06] LABS: INR 1.08 (0.83-1.09); PROTHROMBIN TIME (PATIENT) 12.4 SEC (9.7-13.0)
[2022-02-19 12:09] LABS: ACTIVATED PTT 30.9 SECONDS (25.2-36.5)
[2022-02-19 12:15] LABS: ALBUMIN 3.9 g/dl (3.4-5.0); BILIRUBIN,TOTAL 1.4 mg/dl (0.2-1); CALCIUM 9.1 mg/dl (8.5-10); CREATININE 0.9 mg/dl (0.55-1.3); TOT PROT 6.8 g/dl (6.4-8.2)
[2022-02-19] MEDS ORDERED: FAMOTIDINE 20 MG TABLET PO ONE (12:18)
[2022-02-19] MEDS ORDERED: FAMOTIDINE 20 MG TABLET ONE (12:29)
[2022-02-19 13:09] LABS: PLATELET ESTIMATE ADEQUATE
[2022-02-19] MEDS: INSULIN (LEVEMIR) 100 UNITS/ML UNITS SQ SCH (23:23)
[2022-02-20] MEDS: INSULIN (LEVEMIR) 100 UNITS/ML UNITS SQ SCH ×2 (07:30→21:03)
[2022-02-20] MEDS: INSULIN SLIDING SCALE (NOVOLOG) 1 VIAL SQ SCH ×4 (07:30→21:03)
[2022-02-20 08:38] LABS: HEMATOCRIT 40.8 % (35.4-49); HEMOGLOBIN 13.6 G/dL (11.7-16.9); MCH 28.3 pg (25.7-33.7); MCHC 33.4 g/dl (32.0-35.9); MEAN CELL VOLUME 84.9 fl (80-96); MEAN PLT VOLUME 8.1 fl (7.5-11.1); PLATELET COUNT 189.1 10^3/uL (134-434); RBC 4.81 10^6/uL (4.00-5.60); RDW 16.1 % (11.9-15.9); WHITE BLOOD COUNT 2.3 10^3/uL (4.0-10.8)
[2022-02-20 08:46] LABS: ALBUMIN 3.7 g/dl (3.4-5.0); BILIRUBIN,TOTAL 1.2 mg/dl (0.2-1); PHOSPHOROUS 4.5 mg/dl (2.5-4.9); TOT PROT 6.5 g/dl (6.4-8.2)
[2022-02-20] MEDS: ASPIRIN 81 MG CHEWABLE TABLETS PO SCH (09:20)
[2022-02-20] MEDS: PANTOPRAZOLE 40 MG TABLET PO SCH (09:20)
[2022-02-20] MEDS: ENOXAPARIN NA (PORCINE) 40 MG/0.4 ML DISP.SYRIN SQ SCH (09:21)
[2022-02-20] MEDS: metoPROLOL SUCCINATE 25 MG TAB.SR.24H (FP) PO SCH (09:21)
[2022-02-20] MEDS: BUDESONIDE/FORMETEROL FUMARATE 160/4.5 mcg INHALER IH SCH ×2 (09:22→20:59)
[2022-02-20] MEDS ORDERED: ROSUVASTATIN CA 40 MG TABLET PO SCH (22:00)
[2022-02-20 22:28] VITALS: RESP 18
[2022-02-20] MEDS: FENOFIBRIC ACID 135 MG CAP PO SCH (22:53)
[2022-02-21] MEDS: INSULIN (LEVEMIR) 100 UNITS/ML UNITS SQ SCH (06:35)
[2022-02-21] MEDS: INSULIN SLIDING SCALE (NOVOLOG) 1 VIAL SQ SCH ×2 (06:35→11:11)
[2022-02-21] MEDS ORDERED: LEVOTHYROXINE NA 150 MCG TABLET PO SCH (07:00)
[2022-02-21] MEDS: FENOFIBRIC ACID 135 MG CAP PO SCH (09:09)
[2022-02-21] MEDS: PANTOPRAZOLE 40 MG TABLET PO SCH (09:13)
[2022-02-21] MEDS: ENOXAPARIN NA (PORCINE) 40 MG/0.4 ML DISP.SYRIN SQ SCH (09:13)
[2022-02-21] MEDS: ASPIRIN 81 MG CHEWABLE TABLETS PO SCH (09:13)
[2022-02-21] MEDS: BUDESONIDE/FORMETEROL FUMARATE 160/4.5 mcg INHALER IH SCH (09:14)
[2022-02-21] MEDS: metoPROLOL SUCCINATE 25 MG TAB.SR.24H (FP) PO SCH (09:14)
[2022-02-21] MEDS ORDERED: REGADENOSON 0.4 MG/5 ML PRE-FILLED SYRINGE IVPUSH ONE ×2 (10:34→10:45)
[2022-02-21 14:38] VITALS: BP 102/54; PULSE 99; TEMP 98.3
[2022-02-21 17:23] LABS: BASO % 1.7 % (0-2.0); EOS % 1.4 % (0-4.5); HEMATOCRIT 41.1 % (35.4-49); HEMOGLOBIN 13.8 GM/dL (11.7-16.9); LYMPH % 23.1 % (8-40); MCH 28.1 pg (25.7-33.7); MCHC 33.5 g/dl (32.0-35.9); MEAN CELL VOLUME 83.9 fl (80-96); MEAN PLT VOLUME 8.2 fl (7.5-11.1); MONO % 21.1 % (3.8-10.2); NEUT % 52.7 % (42.8-82.8); PLATELET COUNT 218 10^3/uL (134-434); RDW 16.1 % (11.9-15.9); WHITE BLOOD COUNT 3.1 K/mm3 (4.0-10.0)
[2022-02-21 17:57] LABS: ANISOCYTOSIS 2+; MACROCYTOSIS 0; TEAR DROP CELLS 1+
== END 2022-02-21 15:31 | disposition home or self-care (01) | DRG 198 ==
LOC: FER 11:02 → FM/S 17:19
PROVIDERS: ATTEND Family Medicine
DX: R07.89 Other chest pain (principal); I25.10 Atherosclerotic heart disease of native coronary artery without angina pectoris; E03.9 Hypothyroidism, unspecified; E78.5 Hyperlipidemia, unspecified; Z79.84 Long term (current) use of oral hypoglycemic drugs; K21.9 Gastro-esophageal reflux disease without esophagitis; G47.33 Obstructive sleep apnea (adult) (pediatric); F41.9 Anxiety disorder, unspecified; E66.01 Morbid (severe) obesity due to excess calories; D47.Z2 Castleman disease; Z91.14 Patient's other noncompliance with medication regimen; I11.0 Hypertensive heart disease with heart failure; I50.32 Chronic diastolic (congestive) heart failure; N40.0 Benign prostatic hyperplasia without lower urinary tract symptoms; I31.39 Other pericardial effusion (noninflammatory); Z68.41 Body mass index [BMI] 40.0-44.9, adult; D70.9 Neutropenia, unspecified; E11.65 Type 2 diabetes mellitus with hyperglycemia; Z85.850 Personal history of malignant neoplasm of thyroid
CPT/HCPCS: 0241U-QW; 36415; 71045-TC-FY; 78452-TC; 80053; 80061; 81003; 82962; 83735; 83880; 84100; 84439; 84443; 84484; 85025; 85027; 85610; 85730; 87086; 87186; 93005; 93017; 93306-TC; 99285-25; A9502; J2785

== ENCOUNTER 2022-05-19 14:00 | Inpatient (IN) | payer OTHER ==
[2022-05-19] MEDS ORDERED: SODIUM CHLORIDE 0.9% 1000 ML INFUS.BAG IV ONE (14:28)
[2022-05-19] MEDS ORDERED: morphine CARPU-JECT 4 MG/1 ML DISP.SYRIN IVPUSH ONE ×2 (14:28→21:23)
[2022-05-19] MEDS ORDERED: FAMOTIDINE 20 MG/50 ML IVPB 20 MG/50 ML MG IVPB ONE ×2 (14:28→15:20)
[2022-05-19] MEDS ORDERED: morphine SULFATE 4 MG/ML VIAL ONE ×2 (15:20→21:24)
[2022-05-19 15:44] LABS: HEMATOCRIT 38.7 % (35.4-49); HEMOGLOBIN 13.5 G/dL (11.7-16.9); MCHC 34.8 g/dl (32.0-35.9); MEAN CELL VOLUME 86.2 fl (80-96); MEAN PLT VOLUME 8.6 fl (7.5-11.1); PLATELET COUNT 171.9 10^3/uL (134-434); RBC 4.49 10^6/uL (4.00-5.60); RDW 15.3 % (11.9-15.9); WHITE BLOOD COUNT 7.8 10^3/uL (4.0-10.8)
[2022-05-19 15:47] LABS: ALBUMIN 3.9 g/dl (3.4-5.0); BILIRUBIN,TOTAL 0.9 mg/dl (0.2-1); CALCIUM 8.4 mg/dl (8.5-10); CREATININE 0.9 mg/dl (0.55-1.3); TOT PROT 7.2 g/dl (6.4-8.2)
[2022-05-19 15:50] LABS: INR 1.12 (0.83-1.09); PROTHROMBIN TIME (PATIENT) 12.9 SEC (9.7-13.0)
[2022-05-19 15:53] LABS: ACTIVATED PTT 30.9 SECONDS (25.2-36.5)
[2022-05-19 16:36] LABS: ANISOCYTOSIS 1+; PLATELET ESTIMATE ADEQUATE
[2022-05-19] MEDS ORDERED: CEFTRIAXONE 1 GM in DEXTROSE 5%-WATER - 100 ML IVPB ONE (17:20)
[2022-05-19] MEDS ORDERED: cefTRIAXone SODIUM 1 GM VIAL ONE (17:28)
[2022-05-20] MEDS ORDERED: HYDROmorphone HCl 2 MG/ML VIAL IVPUSH ONE (00:02)
[2022-05-20] MEDS ORDERED: HYDROmorphone HCL/PF 1 MG/ML VIAL ONE (00:03)
[2022-05-20] MEDS: ACETAMINOPHEN 1000 MG/100 ML BAG IVPB PRN ×3 (00:16→23:18)
[2022-05-20] MEDS: DEXTROSE 5%-0.45% SALINE 1,000 ML IV SCH ×2 (07:22→17:29)
[2022-05-20 09:00] VITALS: BMI 44.1
[2022-05-20 09:09] LABS: BASO % 0.9 % (0-2.0); EOS % 1.8 % (0-4.5); HEMATOCRIT 38.6 % (35.4-49); HEMOGLOBIN 12.8 GM/dL (11.7-16.9); LYMPH % 12.3 % (8-40); MCH 28.9 pg (25.7-33.7); MCHC 33.3 g/dl (32.0-35.9); MEAN CELL VOLUME 86.8 fl (80-96); MEAN PLT VOLUME 8.4 fl (7.5-11.1); MONO % 9.1 % (3.8-10.2); NEUT % 75.9 % (42.8-82.8); PLATELET COUNT 187 10^3/uL (134-434); RBC 4.44 M/mm3 (4.00-5.60); RDW 15.8 % (11.9-15.9); WHITE BLOOD COUNT 5.9 K/mm3 (4.0-10.0)
[2022-05-20 09:21] LABS: INR 1.26 (0.83-1.09); PROTHROMBIN TIME (PATIENT) 14.5 SEC (9.7-13.0)
[2022-05-20 09:38] LABS: BLOOD UREA NITROGEN 10.7 mg/dL (7-18); CALCIUM 8.2 mg/dL (8.5-10.1)
[2022-05-20 09:41] LABS: BILIRUBIN,DIRECT 0.2 mg/dL (0.0-0.2); CREATININE 0.8 mg/dL (0.55-1.3)
[2022-05-20 09:43] LABS: BILIRUBIN,TOTAL 0.6 mg/dL (0.2-1); TOT PROT 6.5 g/dl (6.4-8.2)
[2022-05-20] MEDS: CEFTRIAXONE 1 GM in DEXTROSE 5%-WATER - 50 ML IVPB SCH (10:24)
[2022-05-20] MEDS: BUDESONIDE/FORMETEROL FUMARATE 160/4.5 mcg INHALER IH SCH ×2 (10:33→23:15)
[2022-05-20] MEDS: morphine SULFATE 4 MG/ML VIAL IVPUSH PRN (20:51)
[2022-05-21] MEDS: DEXTROSE 5%-0.45% SALINE 1,000 ML IV SCH ×2 (00:49→15:50)
[2022-05-21] MEDS: INSULIN SLIDING SCALE (NOVOLOG) 1 VIAL SQ SCH ×4 (06:45→21:53)
[2022-05-21] MEDS: LEVOTHYROXINE NA 100 MCG TABLET (FP) PO SCH (06:46)
[2022-05-21] MEDS: morphine SULFATE 4 MG/ML VIAL IVPUSH PRN ×2 (07:09→15:51)
[2022-05-21] MEDS: BUDESONIDE/FORMETEROL FUMARATE 160/4.5 mcg INHALER IH SCH ×2 (10:55→21:52)
[2022-05-21] MEDS: CEFTRIAXONE 1 GM in DEXTROSE 5%-WATER - 50 ML IVPB SCH (11:19)
[2022-05-21 12:43] LABS: HEMATOCRIT 37.5 % (35.4-49); HEMOGLOBIN 12.4 GM/dL (11.7-16.9); MCH 28.5 pg (25.7-33.7); MCHC 33.1 g/dl (32.0-35.9); MEAN CELL VOLUME 86.1 fl (80-96); MEAN PLT VOLUME 8.8 fl (7.5-11.1); PLATELET COUNT 215 10^3/uL (134-434); RBC 4.36 M/mm3 (4.00-5.60); RDW 15.7 % (11.9-15.9); WHITE BLOOD COUNT 6.1 K/mm3 (4.0-10.0)
[2022-05-21 13:08] LABS: CALCIUM 8.5 mg/dL (8.5-10.1)
[2022-05-21 13:09] LABS: ALBUMIN 3.1 g/dl (3.4-5.0); BLOOD UREA NITROGEN 8.8 mg/dL (7-18)
[2022-05-21 13:12] LABS: CREATININE 0.8 mg/dL (0.55-1.3)
[2022-05-21 13:14] LABS: BILIRUBIN,TOTAL 0.5 mg/dL (0.2-1); TOT PROT 6.6 g/dl (6.4-8.2)
[2022-05-21] MEDS ORDERED: HYDROmorphone HCl 2 MG/ML VIAL IVPB ONE (17:51)
[2022-05-21] MEDS ORDERED: HYDROmorphone HCl 2 MG/ML VIAL IVPB PRN (17:51)
[2022-05-21] MEDS ORDERED: morphine SULFATE 4 MG/ML VIAL IVPUSH PRN (17:52)
[2022-05-22] MEDS ORDERED: BUPIVACAINE HCL/PF 0.5% (5MG/ML) 10 ML VIAL NR ONE
[2022-05-22] MEDS: DEXTROSE 5%-0.45% SALINE 1,000 ML IV SCH (00:05)
[2022-05-22] MEDS: LEVOTHYROXINE NA 100 MCG TABLET (FP) PO SCH (06:36)
[2022-05-22] MEDS: INSULIN SLIDING SCALE (NOVOLOG) 1 VIAL SQ SCH ×4 (06:39→22:02)
[2022-05-22] MEDS ORDERED: BUPIVACAINE HCL/PF 0.25% (2.5MG/ML) 10 ML VIAL ONE ×2 (07:33→07:34)
[2022-05-22 08:59] LABS: HEMATOCRIT 37.3 % (35.4-49); HEMOGLOBIN 12.6 GM/dL (11.7-16.9); MCH 28.9 pg (25.7-33.7); MCHC 33.7 g/dl (32.0-35.9); MEAN CELL VOLUME 85.8 fl (80-96); MEAN PLT VOLUME 8.4 fl (7.5-11.1); PLATELET COUNT 227 10^3/uL (134-434); RBC 4.35 M/mm3 (4.00-5.60); RDW 15.7 % (11.9-15.9); WHITE BLOOD COUNT 6.2 K/mm3 (4.0-10.0)
[2022-05-22] MEDS: CEFTRIAXONE 1 GM in DEXTROSE 5%-WATER - 50 ML IVPB SCH (09:05)
[2022-05-22 09:14] LABS: ALBUMIN 3.2 g/dl (3.4-5.0)
[2022-05-22 09:15] LABS: CALCIUM 8.6 mg/dL (8.5-10.1)
[2022-05-22 09:17] LABS: BLOOD UREA NITROGEN 8.1 mg/dL (7-18)
[2022-05-22 09:19] LABS: CREATININE 0.8 mg/dL (0.55-1.3)
[2022-05-22 09:20] LABS: TOT PROT 6.4 g/dl (6.4-8.2)
[2022-05-22 09:21] LABS: BILIRUBIN,TOTAL 0.4 mg/dL (0.2-1)
[2022-05-22] MEDS ORDERED: PROPOFOL 40 ML ONE (09:58)
[2022-05-22] MEDS ORDERED: SUCCINYLCHOLINE CHLORIDE 200 MG/10 ML SYRINGE ONE (09:59)
[2022-05-22] MEDS ORDERED: ROCURONIUM BROMIDE 50 MG/5 ML SYRINGE ONE (09:59)
[2022-05-22] MEDS ORDERED: PANTOPRAZOLE SODIUM 40 MG in SODIUM CHLORIDE 100 ML IVPB SCH ×2 (10:00→22:00)
[2022-05-22] MEDS: BUDESONIDE/FORMETEROL FUMARATE 160/4.5 mcg INHALER IH SCH ×2 (10:42→22:04)
[2022-05-22] MEDS ORDERED: ONDANSETRON 4 MG/2 ML VIAL ONE (12:00)
[2022-05-22] MEDS ORDERED: KETOROLAC TROMETHAMINE 30 MG/1 ML VIAL ONE (12:00)
[2022-05-22] MEDS ORDERED: BUPIVACAINE HCL/PF 0.25% (2.5MG/ML) 10 ML VIAL IJ ONE ×3 (12:00)
[2022-05-22] MEDS ORDERED: DEXAMETHASONE SOD PHOSPHATE 4 MG/1 ML VIAL ONE (12:00)
[2022-05-22] MEDS ORDERED: GLYCOPYRROLATE 0.2 MG/1 ML VIAL ONE ×2 (12:08)
[2022-05-22] MEDS ORDERED: NEOSTIGMINE METHYLSULFATE 0.5 MG/1 ML - 10 ML MDV ONE (12:08)
[2022-05-22] MEDS ORDERED: ONDANSETRON 4 MG/2 ML VIAL IVPUSH PRN (12:39)
[2022-05-22] MEDS ORDERED: PROMETHAZINE HCL 25 MG/1 ML VIAL IM PRN (12:39)
[2022-05-22] MEDS ORDERED: morphine CARPU-JECT 4 MG/1 ML DISP.SYRIN IVPUSH PRN (12:51)
[2022-05-22] MEDS ORDERED: morphine SULFATE 4 MG/ML VIAL IVPUSH PRN (13:03)
[2022-05-22] MEDS: PANTOPRAZOLE SODIUM 40 MG VIAL IVPB SCH ×2 (14:00→22:03)
[2022-05-22] MEDS: oxyCODONE HCL 5 MG TABLET PO PRN (15:03)
[2022-05-22] MEDS: ACETAMINOPHEN 500 MG TABLET (FP) PO SCH (18:22)
[2022-05-22 19:43] VITALS: RESP 18
[2022-05-22] MEDS: DOCUSATE SODIUM 100 MG CAPSULE (FP) PO SCH (22:01)
[2022-05-23] MEDS: ACETAMINOPHEN 500 MG TABLET (FP) PO SCH ×4 (00:41→18:26)
[2022-05-23] MEDS: LEVOTHYROXINE NA 100 MCG TABLET (FP) PO SCH (06:34)
[2022-05-23] MEDS: INSULIN SLIDING SCALE (NOVOLOG) 1 VIAL SQ SCH ×4 (06:40→23:19)
[2022-05-23] MEDS: oxyCODONE HCL 5 MG TABLET PO PRN ×4 (08:25→22:34)
[2022-05-23] MEDS: PANTOPRAZOLE SODIUM 40 MG VIAL IVPB SCH ×3 (08:29→22:40)
[2022-05-23] MEDS: BUDESONIDE/FORMETEROL FUMARATE 160/4.5 mcg INHALER IH SCH ×3 (08:29→23:19)
[2022-05-23] MEDS: DOCUSATE SODIUM 100 MG CAPSULE (FP) PO SCH ×3 (08:29→22:35)
[2022-05-23] MEDS ORDERED: INSULIN (NOVOLOG) ASPART 100 UNITS/ML 10ML VIAL ONE (11:18)
[2022-05-23 12:24] LABS: BASO % 0.4 % (0-2.0); EOS % 0.8 % (0-4.5); HEMATOCRIT 36.9 % (35.4-49); HEMOGLOBIN 12.6 GM/dL (11.7-16.9); LYMPH % 10.1 % (8-40); MCH 29.3 pg (25.7-33.7); MCHC 34.1 g/dl (32.0-35.9); MEAN PLT VOLUME 8.2 fl (7.5-11.1); MONO % 6.8 % (3.8-10.2); NEUT % 81.9 % (42.8-82.8); PLATELET COUNT 223 10^3/uL (134-434); RBC 4.29 M/mm3 (4.00-5.60); RDW 15.9 % (11.9-15.9); WHITE BLOOD COUNT 7.9 K/mm3 (4.0-10.0)
[2022-05-23 12:51] LABS: CALCIUM 8.3 mg/dL (8.5-10.1)
[2022-05-23 12:52] LABS: ALBUMIN 3.1 g/dl (3.4-5.0); BLOOD UREA NITROGEN 14.2 mg/dL (7-18)
[2022-05-23 12:55] LABS: BILIRUBIN,TOTAL 0.4 mg/dL (0.2-1); TOT PROT 6.2 g/dl (6.4-8.2)
[2022-05-23] MEDS: HEPARIN NA (PORCINE) 5,000 UNITS/ML 1ML VIAL SQ SCH ×2 (22:35→23:55)
[2022-05-24] MEDS: ACETAMINOPHEN 500 MG TABLET (FP) PO SCH ×3 (02:22→13:00)
[2022-05-24] MEDS: HEPARIN NA (PORCINE) 5,000 UNITS/ML 1ML VIAL SQ SCH ×2 (05:57→13:00)
[2022-05-24] MEDS: LEVOTHYROXINE NA 100 MCG TABLET (FP) PO SCH (06:04)
[2022-05-24] MEDS: oxyCODONE HCL 5 MG TABLET PO PRN (06:05)
[2022-05-24] MEDS: INSULIN SLIDING SCALE (NOVOLOG) 1 VIAL SQ SCH ×3 (06:20→16:51)
[2022-05-24] MEDS ORDERED: INSULIN (LEVEMIR) 100 UNITS/ML UNITS SQ ONE (07:08)
[2022-05-24] MEDS: PANTOPRAZOLE SODIUM 40 MG VIAL IVPB SCH (09:18)
[2022-05-24] MEDS: BUDESONIDE/FORMETEROL FUMARATE 160/4.5 mcg INHALER IH SCH (09:18)
[2022-05-24] MEDS: DOCUSATE SODIUM 100 MG CAPSULE (FP) PO SCH (09:18)
[2022-05-24 10:31] LABS: HEMATOCRIT 37.6 % (35.4-49); HEMOGLOBIN 12.8 GM/dL (11.7-16.9); MCH 29.1 pg (25.7-33.7); MEAN CELL VOLUME 85.8 fl (80-96); MEAN PLT VOLUME 8.4 fl (7.5-11.1); PLATELET COUNT 252 10^3/uL (134-434); RBC 4.38 M/mm3 (4.00-5.60); RDW 15.5 % (11.9-15.9); WHITE BLOOD COUNT 8.1 K/mm3 (4.0-10.0)
[2022-05-24 11:10] LABS: ALBUMIN 3.2 g/dl (3.4-5.0); CALCIUM 8.5 mg/dL (8.5-10.1)
[2022-05-24 11:11] LABS: BLOOD UREA NITROGEN 15.4 mg/dL (7-18)
[2022-05-24 11:13] LABS: CREATININE 0.9 mg/dL (0.55-1.3)
[2022-05-24 11:15] LABS: BILIRUBIN,TOTAL 0.4 mg/dL (0.2-1); TOT PROT 6.7 g/dl (6.4-8.2)
[2022-05-24 12:21] VITALS: BP 114/61; PULSE 81; TEMP 98.4
== END 2022-05-24 18:13 | disposition home or self-care (01) | DRG 263 ==
LOC: FER 14:00 → J6S 05-20 04:00
PROVIDERS: ADMIT Internal Medicine; ATTEND Family Medicine
PROC: 0FT44ZZ Resection of Gallbladder, Percutaneous Endoscopic Approach (ICD-10-PCS; principal; 2022-05-22 10:00)
DX: K80.42 Calculus of bile duct with acute cholecystitis without obstruction (principal); E66.01 Morbid (severe) obesity due to excess calories; K76.0 Fatty (change of) liver, not elsewhere classified; E11.9 Type 2 diabetes mellitus without complications; I10 Essential (primary) hypertension; I25.10 Atherosclerotic heart disease of native coronary artery without angina pectoris; Z95.5 Presence of coronary angioplasty implant and graft; K21.9 Gastro-esophageal reflux disease without esophagitis; Z68.41 Body mass index [BMI] 40.0-44.9, adult; E78.5 Hyperlipidemia, unspecified; E03.9 Hypothyroidism, unspecified
CPT/HCPCS: 0241U-QW; 36415; 76705-TC; 80053; 81003; 82150; 82248; 82962; 83036; 83690; 85025; 85027; 85610; 85730; 86140; 86850; 86900; 86901; 87040; 88304-TC; 93005; 94760; 99285-25; J1644

== ENCOUNTER 2022-08-01 13:06 | Observation (INO) | payer OTHER ==
[2022-08-01 14:13] LABS: HEMATOCRIT 36.8 % (35.4-49); HEMOGLOBIN 12.2 G/dL (11.7-16.9); MCH 28.3 pg (25.7-33.7); MEAN CELL VOLUME 85.8 fl (80-96); MEAN PLT VOLUME 9.2 fl (7.5-11.1); PLATELET COUNT 159.7 10^3/uL (134-434); RBC 4.29 10^6/uL (4.00-5.60); RDW 15.8 % (11.9-15.9); WHITE BLOOD COUNT 5.5 10^3/uL (4.0-10.8)
[2022-08-01 14:15] LABS: INR 1.33 (0.83-1.09); PROTHROMBIN TIME (PATIENT) 15.3 SEC (9.7-13.0)
[2022-08-01 14:18] LABS: ACTIVATED PTT 31.7 SECONDS (25.2-36.5); ALBUMIN 3.6 g/dl (3.4-5.0); BILIRUBIN,TOTAL 1.3 mg/dl (0.2-1); CALCIUM 8.5 mg/dl (8.5-10); CREATININE 0.9 mg/dl (0.55-1.3); MAGNESIUM 1.7 mg/dL (1.8-2.4); TOT PROT 7.4 g/dl (6.4-8.2)
[2022-08-01] MEDS ORDERED: KETOROLAC TROMETHAMINE 15 MG/ML VIAL IVPUSH ONE (14:24)
[2022-08-01] MEDS ORDERED: KETOROLAC TROMETHAMINE 15 MG/ML VIAL ONE (14:25)
[2022-08-01 14:36] LABS: PLATELET ESTIMATE ADEQUATE
[2022-08-01] MEDS ORDERED: CEFTRIAXONE 1 GM in DEXTROSE 5%-WATER - 100 ML IVPB ONE (16:03)
[2022-08-01] MEDS ORDERED: guaiFENesin/D-M SUGAR-FREE/ACLHOL-FREE (200 MG/10 MG) 5 ML PO ONE (16:05)
[2022-08-01] MEDS ORDERED: SODIUM CHLORIDE 0.9% 500 ML INFUS.BAG IV ONE (16:06)
[2022-08-01] MEDS ORDERED: cefTRIAXone SODIUM 1 GM VIAL ONE (16:22)
[2022-08-01] MEDS ORDERED: guaiFENesin/D-METHORPHAN HB 10 ML UNIT-DOSE CUPS ONE (16:22)
[2022-08-01 17:09] LABS: N-TERMINAL BNP 190.22 pg/ml (5-125)
[2022-08-01] MEDS ORDERED: ACETAMINOPHEN 1000 MG/100 ML BAG IVPB ONE (17:29)
[2022-08-01] MEDS ORDERED: ACETAMINOPHEN INJECTION 100 ML IVPB ONE (17:36)
[2022-08-01] MEDS ORDERED: LACTATED RINGERS SOLUTION 1,000 ML IV SCH (17:45)
[2022-08-01 18:48] VITALS: BMI 43.0
[2022-08-01] MEDS ORDERED: DOCUSATE SODIUM 100 MG CAPSULE (FP) PO PRN (19:48)
[2022-08-01] MEDS: ACETAMINOPHEN 325 MG TABLET (FP) PO PRN ×2 (20:15→23:21)
[2022-08-01] MEDS: INSULIN SLIDING SCALE (NOVOLOG) 1 VIAL SQ SCH (21:36)
[2022-08-02] MEDS ORDERED: guaiFENesin/D-M SUGAR-FREE/ACLHOL-FREE (200 MG/10 MG) 5 ML PO PRN (00:05)
[2022-08-02] MEDS ORDERED: oxyCODONE HCL 5 MG TABLET PO ONE (01:09)
[2022-08-02] MEDS: INSULIN SLIDING SCALE (NOVOLOG) 1 VIAL SQ SCH ×4 (06:40→21:53)
[2022-08-02] MEDS: LEVOTHYROXINE NA 150 MCG TABLET PO SCH (06:40)
[2022-08-02] MEDS ORDERED: ACETAMINOPHEN 1000 MG/100 ML BAG IVPB PRN (06:41)
[2022-08-02 08:16] LABS: ALBUMIN 3.2 g/dl (3.4-5.0); BILIRUBIN,TOTAL 0.9 mg/dl (0.2-1); CALCIUM 8.4 mg/dl (8.5-10); MAGNESIUM 1.8 mg/dL (1.8-2.4); PHOSPHOROUS 4.5 mg/dl (2.5-4.9); TOT PROT 6.7 g/dl (6.4-8.2)
[2022-08-02 09:45] LABS: HEMATOCRIT 34.3 % (35.4-49); HEMOGLOBIN 11.8 GM/dL (11.7-16.9); MCH 28.5 pg (25.7-33.7); MCHC 34.3 g/dl (32.0-35.9); MEAN CELL VOLUME 82.9 fl (80-96); MEAN PLT VOLUME 9.3 fl (7.5-11.1); PLATELET COUNT 124 10^3/uL (134-434); RBC 4.13 M/mm3 (4.00-5.60); RDW 16.5 % (11.9-15.9)
[2022-08-02 09:48] LABS: INR 1.28 (0.83-1.09); PROTHROMBIN TIME (PATIENT) 14.7 SEC (9.7-13.0)
[2022-08-02 10:10] LABS: ANISOCYTOSIS 0; MACROCYTOSIS 0
[2022-08-02] MEDS: FENOFIBRIC ACID 135 MG CAP PO SCH (10:30)
[2022-08-02] MEDS: ASPIRIN COATED 81 MG TABLET.EC PO SCH (10:30)
[2022-08-02] MEDS: PANTOPRAZOLE 40 MG TABLET PO SCH (10:30)
[2022-08-02] MEDS: CEFTRIAXONE 1 GM in DEXTROSE 5%-WATER - 50 ML IVPB SCH (10:30)
[2022-08-02] MEDS: ENOXAPARIN NA (PORCINE) 40 MG/0.4 ML DISP.SYRIN SQ SCH (10:31)
[2022-08-02] MEDS: BUDESONIDE/FORMETEROL FUMARATE 160/4.5 mcg INHALER IH SCH ×2 (10:39→22:00)
[2022-08-02] MEDS: methylPREDNISolone NA SUCC 40 MG/1 ML VIAL IVPUSH SCH (18:04)
[2022-08-02] MEDS: ROSUVASTATIN CA 20 MG TABLET PO SCH (21:34)
[2022-08-02] MEDS ORDERED: oxyCODONE HCL 5 MG TABLET PO PRN (21:51)
[2022-08-02] MEDS: INSULIN (LEVEMIR) 100 UNITS/ML UNITS SQ SCH (21:51)
[2022-08-03] MEDS: LEVOTHYROXINE NA 150 MCG TABLET PO SCH (06:54)
[2022-08-03] MEDS: methylPREDNISolone NA SUCC 40 MG/1 ML VIAL IVPUSH SCH ×3 (06:55→17:01)
[2022-08-03] MEDS: INSULIN SLIDING SCALE (NOVOLOG) 1 VIAL SQ SCH ×4 (06:56→21:46)
[2022-08-03] MEDS: ASPIRIN COATED 81 MG TABLET.EC PO SCH (10:36)
[2022-08-03] MEDS: INSULIN (LEVEMIR) 100 UNITS/ML UNITS SQ SCH ×2 (10:37→21:41)
[2022-08-03] MEDS: FENOFIBRIC ACID 135 MG CAP PO SCH (10:37)
[2022-08-03] MEDS: PANTOPRAZOLE 40 MG TABLET PO SCH (10:37)
[2022-08-03] MEDS: ENOXAPARIN NA (PORCINE) 40 MG/0.4 ML DISP.SYRIN SQ SCH (10:38)
[2022-08-03] MEDS: CEFTRIAXONE 1 GM in DEXTROSE 5%-WATER - 50 ML IVPB SCH (10:38)
[2022-08-03] MEDS: BUDESONIDE/FORMETEROL FUMARATE 160/4.5 mcg INHALER IH SCH ×2 (10:40→21:37)
[2022-08-03] MEDS: INSULIN (NOVOLOG) ASPART 100 UNITS/ML 10ML VIAL SQ SCH ×3 (11:35→17:03)
[2022-08-03] MEDS: ROSUVASTATIN CA 20 MG TABLET PO SCH (21:37)
[2022-08-04] MEDS: methylPREDNISolone NA SUCC 40 MG/1 ML VIAL IVPUSH SCH ×2 (01:19→10:33)
[2022-08-04] MEDS: LEVOTHYROXINE NA 150 MCG TABLET PO SCH (06:23)
[2022-08-04] MEDS: INSULIN (NOVOLOG) ASPART 100 UNITS/ML 10ML VIAL SQ SCH ×3 (06:29→16:17)
[2022-08-04] MEDS: INSULIN SLIDING SCALE (NOVOLOG) 1 VIAL SQ SCH ×4 (06:37→21:22)
[2022-08-04] MEDS: sitaGLIPtin PHOSPHATE 50 MG TABLET PO SCH (07:53)
[2022-08-04] MEDS: PANTOPRAZOLE 40 MG TABLET PO SCH (10:32)
[2022-08-04] MEDS: INSULIN (LEVEMIR) 100 UNITS/ML UNITS SQ SCH ×2 (10:32→21:21)
[2022-08-04] MEDS: ENOXAPARIN NA (PORCINE) 40 MG/0.4 ML DISP.SYRIN SQ SCH (10:32)
[2022-08-04] MEDS: ASPIRIN COATED 81 MG TABLET.EC PO SCH (10:32)
[2022-08-04] MEDS: CEFTRIAXONE 1 GM in DEXTROSE 5%-WATER - 50 ML IVPB SCH (10:33)
[2022-08-04] MEDS: BUDESONIDE/FORMETEROL FUMARATE 160/4.5 mcg INHALER IH SCH ×2 (10:34→21:24)
[2022-08-04] MEDS: FENOFIBRIC ACID 135 MG CAP PO SCH (10:34)
[2022-08-04] MEDS: ROSUVASTATIN CA 20 MG TABLET PO SCH (22:20)
[2022-08-05] MEDS: sitaGLIPtin PHOSPHATE 50 MG TABLET PO SCH (06:01)
[2022-08-05] MEDS: LEVOTHYROXINE NA 150 MCG TABLET PO SCH (06:01)
[2022-08-05] MEDS: INSULIN (NOVOLOG) ASPART 100 UNITS/ML 10ML VIAL SQ SCH ×3 (06:03→16:45)
[2022-08-05] MEDS: INSULIN SLIDING SCALE (NOVOLOG) 1 VIAL SQ SCH ×4 (06:03→21:44)
[2022-08-05] MEDS ORDERED: sitaGLIPtin PHOSPHATE 50 MG TABLET PO SCH (07:00)
[2022-08-05] MEDS ORDERED: methylPREDNISolone NA SUCC 40 MG/1 ML VIAL IVPUSH SCH (10:00)
[2022-08-05] MEDS: INSULIN (LEVEMIR) 100 UNITS/ML UNITS SQ SCH ×2 (10:31→21:43)
[2022-08-05] MEDS: ASPIRIN COATED 81 MG TABLET.EC PO SCH (11:28)
[2022-08-05] MEDS: PANTOPRAZOLE 40 MG TABLET PO SCH (11:28)
[2022-08-05] MEDS: CEFTRIAXONE 1 GM in DEXTROSE 5%-WATER - 50 ML IVPB SCH (11:29)
[2022-08-05] MEDS: FENOFIBRIC ACID 135 MG CAP PO SCH (11:29)
[2022-08-05] MEDS: ENOXAPARIN NA (PORCINE) 40 MG/0.4 ML DISP.SYRIN SQ SCH ×2 (11:29→11:43)
[2022-08-05] MEDS: BUDESONIDE/FORMETEROL FUMARATE 160/4.5 mcg INHALER IH SCH ×2 (11:30→21:42)
[2022-08-05 14:45] VITALS: RESP 18
[2022-08-05] MEDS ORDERED: oxyCODONE HCL 5 MG TABLET PO PRN (21:18)
[2022-08-05] MEDS: ROSUVASTATIN CA 20 MG TABLET PO SCH (21:44)
[2022-08-06] MEDS: sitaGLIPtin PHOSPHATE 50 MG TABLET PO SCH (06:22)
[2022-08-06] MEDS: INSULIN (NOVOLOG) ASPART 100 UNITS/ML 10ML VIAL SQ SCH ×2 (06:22→12:11)
[2022-08-06] MEDS: LEVOTHYROXINE NA 150 MCG TABLET PO SCH (06:22)
[2022-08-06] MEDS: INSULIN SLIDING SCALE (NOVOLOG) 1 VIAL SQ SCH ×2 (06:23→12:12)
[2022-08-06 09:27] VITALS: BP 128/60; PULSE 76; TEMP 98.3
[2022-08-06] MEDS: CEFTRIAXONE 1 GM in DEXTROSE 5%-WATER - 50 ML IVPB SCH (09:54)
[2022-08-06] MEDS: ASPIRIN COATED 81 MG TABLET.EC PO SCH (09:54)
[2022-08-06] MEDS: FENOFIBRIC ACID 135 MG CAP PO SCH (09:54)
[2022-08-06] MEDS: BUDESONIDE/FORMETEROL FUMARATE 160/4.5 mcg INHALER IH SCH (09:55)
[2022-08-06] MEDS: INSULIN (LEVEMIR) 100 UNITS/ML UNITS SQ SCH (09:55)
[2022-08-06] MEDS: ENOXAPARIN NA (PORCINE) 40 MG/0.4 ML DISP.SYRIN SQ SCH (09:56)
[2022-08-06] MEDS: PANTOPRAZOLE 40 MG TABLET PO SCH (09:56)
[2022-08-06] MEDS ORDERED: predniSONE 20 MG TABLET (UD) PO SCH (10:00)
== END 2022-08-06 13:16 | disposition home or self-care (01) ==
LOC: FER 13:06 → UNDOADMOB 15:55 → FM/S 15:55
PROVIDERS: ADMIT Internal Medicine; ATTEND Family Medicine
PROC: 3E03329 Introduction of Other Anti-infective into Peripheral Vein, Percutaneous Approach (ICD-10-PCS; principal; 2022-08-01)
PROC: 3E0333Z Introduction of Anti-inflammatory into Peripheral Vein, Percutaneous Approach (ICD-10-PCS; 2022-08-01)
PROC: 3E0337Z Introduction of Electrolytic and Water Balance Substance into Peripheral Vein, Percutaneous Approach (ICD-10-PCS; 2022-08-01)
PROC: 3E033GC Introduction of Other Therapeutic Substance into Peripheral Vein, Percutaneous Approach (ICD-10-PCS; 2022-08-01)
PROC: 3E013VG Introduction of Insulin into Subcutaneous Tissue, Percutaneous Approach (ICD-10-PCS; 2022-08-01)
PROC: 3E0F7SF Introduction of Other Gas into Respiratory Tract, Via Natural or Artificial Opening (ICD-10-PCS; 2022-08-01)
DX: J18.9 Pneumonia, unspecified organism (principal); R06.09 Other forms of dyspnea; R59.0 Localized enlarged lymph nodes; R07.81 Pleurodynia; D47.Z2 Castleman disease; Z85.72 Personal history of non-Hodgkin lymphomas; E78.1 Pure hyperglyceridemia; E83.42 Hypomagnesemia; I10 Essential (primary) hypertension; N17.9 Acute kidney failure, unspecified; I25.10 Atherosclerotic heart disease of native coronary artery without angina pectoris; E11.65 Type 2 diabetes mellitus with hyperglycemia; K21.9 Gastro-esophageal reflux disease without esophagitis; E87.1 Hypo-osmolality and hyponatremia; Z85.850 Personal history of malignant neoplasm of thyroid; E89.0 Postprocedural hypothyroidism; E66.01 Morbid (severe) obesity due to excess calories; Z68.41 Body mass index [BMI] 40.0-44.9, adult; K76.0 Fatty (change of) liver, not elsewhere classified; G47.33 Obstructive sleep apnea (adult) (pediatric); Z79.4 Long term (current) use of insulin; R07.89 Other chest pain; N13.30 Unspecified hydronephrosis; Z95.5 Presence of coronary angioplasty implant and graft; E78.5 Hyperlipidemia, unspecified
CPT/HCPCS: 0241U-QW; 36415; 71046-TC-FY; 71250-TC; 80053; 82550; 82962; 83036; 83735; 83880; 84100; 84443; 84484; 85025; 85027; 85610; 85730; 93005; 94644; 96365; 96372; 96375; 96376; 99285-25; G0378

== ENCOUNTER 2022-12-18 02:38 | Inpatient (IN) | payer OTHER ==
[2022-12-18 02:44] VITALS: BMI 43.0
[2022-12-18 03:25] LABS: CHLORIDE 94 mmol/L (98-107); POTASSIUM 4.5 mmol/L (3.5-5.1); SODIUM 130 mmol/L (136-145)
[2022-12-18 03:28] LABS: ALBUMIN 3.1 g/dl (3.4-5.0); ANION GAP 8 MMOL/L (8-16); CO2 28 mmol/L (21-32)
[2022-12-18 03:32] LABS: BILIRUBIN,TOTAL 1.1 mg/dL (0.2-1)
[2022-12-18 03:58] LABS: HEMATOCRIT 33.1 % (35.4-49); HEMOGLOBIN 12.7 GM/dL (11.7-16.9); MCH 33.3 pg (25.7-33.7); MEAN CELL VOLUME 86.5 fl (80-96); MEAN PLT VOLUME 9.6 fl (7.5-11.1); PLATELET COUNT 254 10^3/uL (134-434); RBC 3.82 M/mm3 (4.00-5.60); RDW 19.3 % (11.9-15.9); WHITE BLOOD COUNT 4.8 K/mm3 (4.0-10.0)
[2022-12-18 03:59] LABS: MCHC 38.5 g/dl (32.0-35.9)
[2022-12-18 04:13] LABS: ALK PHOS 99 U/L (45-117); BLOOD UREA NITROGEN 12.2 mg/dL (7-18); CALCIUM 6.8 mg/dL (8.5-10.1); GLUCOSE,RANDOM 487 mg/dL (74-106); TOT PROT 6.8 g/dl (6.4-8.2)
[2022-12-18 04:19] LABS: CHLORIDE 95 mmol/L (98-107); POTASSIUM 4.4 mmol/L (3.5-5.1)
[2022-12-18] MEDS ORDERED: SODIUM CHLORIDE 0.9% 500 ML INFUS.BAG IV ONE (04:21)
[2022-12-18 04:22] LABS: ALBUMIN 3.1 g/dl (3.4-5.0); CO2 27 mmol/L (21-32)
[2022-12-18 04:25] LABS: CREATININE 0.9 mg/dL (0.55-1.3)
[2022-12-18 04:31] LABS: ALK PHOS 99 U/L (45-117); ANION GAP 7 MMOL/L (8-16); BILIRUBIN,TOTAL 1.1 mg/dL (0.2-1); BLOOD UREA NITROGEN 11.2 mg/dL (7-18); CALCIUM 6.6 mg/dL (8.5-10.1); GLUCOSE,RANDOM 667 mg/dL (74-106); SODIUM 129 mmol/L (136-145); TOT PROT 6.5 g/dl (6.4-8.2)
[2022-12-18 04:49] LABS: VENOUS BASE EXCESS 2.1 mmol/L (-2-2); VENOUS O2 SATURATION 85.8 % (70-80); VENOUS PCO2 48.3 mmHg (38-52); VENOUS PH 7.379 (7.310-7.410)
[2022-12-18] MEDS ORDERED: INSULIN (NOVOLOG) ASPART 100 UNITS/ML 10ML VIAL SQ ONE ×2 (04:57→06:16)
[2022-12-18] MEDS ORDERED: INSULIN REGULAR HUMAN 100 UNITS/ML *VIAL ONE ×2 (05:05→06:17)
[2022-12-18 05:12] LABS: CHLORIDE 95 mmol/L (98-107); POTASSIUM 4.5 mmol/L (3.5-5.1)
[2022-12-18 05:14] LABS: CO2 27 mmol/L (21-32)
[2022-12-18 05:15] LABS: ALBUMIN 2.9 g/dl (3.4-5.0); LIPASE 138 U/L (73-393)
[2022-12-18 05:18] LABS: CREATININE 0.8 mg/dL (0.55-1.3)
[2022-12-18 05:19] LABS: CHOLESTEROL 236 mg/dL (50-200)
[2022-12-18 05:20] LABS: LDL CHOLESTEROL (ONLY SJRH) 94 mg/dL (5-100)
[2022-12-18 05:22] LABS: HDL CHOLESTEROL 12 mg/dL (40-60)
[2022-12-18 05:28] LABS: ALK PHOS 99 U/L (45-117); ANION GAP 6 MMOL/L (8-16); BLOOD UREA NITROGEN 10.5 mg/dL (7-18); CALCIUM 6.8 mg/dL (8.5-10.1); GLUCOSE,RANDOM 664 mg/dL (74-106); SODIUM 128 mmol/L (136-145); TOT PROT 6.5 g/dl (6.4-8.2)
[2022-12-18] MEDS ORDERED: INSULIN SLIDING SCALE (NOVOLOG) 1 VIAL SQ SCH ×2 (07:00→22:00)
[2022-12-18] MEDS ORDERED: INSULIN (NOVOLOG) ASPART 100 UNITS/ML 10ML VIAL ONE ×3 (07:54→18:02)
[2022-12-18] MEDS ORDERED: INSULIN (LEVEMIR) 100 UNITS/ML UNITS SQ ONE ×2 (09:20→22:00)
[2022-12-18] MEDS ORDERED: PATIENT'S OWN MEDICATION (NON-FORMULARY) (Lisinopril/Hydrochlorothiazide [Lisinopril-Hctz PO SCH (10:00)
[2022-12-18] MEDS ORDERED: INSULIN (LEVEMIR) 100 UNITS/ML UNITS SQ SCH ×2 (10:00→22:00)
[2022-12-18] MEDS ORDERED: HYDROCHLOROTHIAZIDE 12.5 MG CAPSULE (FP) PO SCH (10:00)
[2022-12-18] MEDS ORDERED: FENOFIBRIC ACID 135 MG CAP PO SCH (10:00)
[2022-12-18] MEDS ORDERED: metoPROLOL SUCCINATE 25 MG TAB.SR.24H (FP) PO SCH (10:00)
[2022-12-18] MEDS ORDERED: LISINOPRIL 10 MG TABLET PO SCH (10:00)
[2022-12-18] MEDS ORDERED: PANTOPRAZOLE 40 MG TABLET PO SCH (10:00)
[2022-12-18] MEDS ORDERED: amLODIPine BESYLATE 5 MG TABLET (FP) PO SCH (10:00)
[2022-12-18] MEDS ORDERED: ASPIRIN COATED 81 MG TABLET.EC PO SCH (10:00)
[2022-12-18 10:15] VITALS: TEMP 98
[2022-12-18] MEDS: INSULIN SLIDING SCALE (NOVOLOG) 1 VIAL SQ SCH ×2 (11:12→17:10)
[2022-12-18 12:29] LABS: POTASSIUM 4.4 mmol/L (3.5-5.1)
[2022-12-18 12:34] LABS: CREATININE 0.8 mg/dL (0.55-1.3)
[2022-12-18 12:39] LABS: N-TERMINAL BNP 125.3 pg/ml (5-125)
[2022-12-18 12:43] LABS: BLOOD UREA NITROGEN 8.9 mg/dL (7-18); CALCIUM 7.9 mg/dL (8.5-10.1)
[2022-12-18] MEDS ORDERED: CLOPIDOGREL BISULFATE 300 MG TABLET PO ONE (13:00)
[2022-12-18] MEDS ORDERED: CLOPIDOGREL BISULFATE 300 MG TABLET ONE (13:11)
[2022-12-18] MEDS ORDERED: ENOXAPARIN NA (PORCINE) 120 MG/0.8 ML DISP.SYRIN SQ SCH (13:15)
[2022-12-18] MEDS ORDERED: LEVOTHYROXINE NA 100 MCG TABLET (FP) PO ONE (14:00)
[2022-12-18] MEDS ORDERED: LEVOTHYROXINE NA 100 MCG TABLET (FP) ONE (14:10)
[2022-12-18] MEDS: BUDESONIDE/FORMETEROL FUMARATE 160/4.5 mcg INHALER IH SCH ×2 (14:18→22:03)
[2022-12-18 20:25] VITALS: BP 112/78; PULSE 93; RESP 17
[2022-12-18] MEDS ORDERED: ROSUVASTATIN CA 20 MG TABLET PO SCH (22:00)
[2022-12-18] MEDS ORDERED: ROSUVASTATIN CA 20 MG TABLET ONE (22:17)
[2022-12-19] MEDS ORDERED: LEVOTHYROXINE NA 150 MCG TABLET PO SCH (07:00)
== END 2022-12-19 00:15 | disposition short-term general hospital (02) | DRG 190 ==
LOC: JER 02:38 → JERBED 06:12
PROVIDERS: ADMIT Family Medicine; ATTEND Family Medicine
DX: I21.4 Non-ST elevation (NSTEMI) myocardial infarction (principal); C85.90 Non-Hodgkin lymphoma, unspecified, unspecified site; E11.9 Type 2 diabetes mellitus without complications; E78.5 Hyperlipidemia, unspecified; I25.10 Atherosclerotic heart disease of native coronary artery without angina pectoris; K21.9 Gastro-esophageal reflux disease without esophagitis; E03.9 Hypothyroidism, unspecified; R00.0 Tachycardia, unspecified; K76.0 Fatty (change of) liver, not elsewhere classified; E86.0 Dehydration; F41.9 Anxiety disorder, unspecified; D47.Z2 Castleman disease; D64.9 Anemia, unspecified; E66.01 Morbid (severe) obesity due to excess calories; Z68.41 Body mass index [BMI] 40.0-44.9, adult; Z71.3 Dietary counseling and surveillance; Z85.850 Personal history of malignant neoplasm of thyroid; Z95.5 Presence of coronary angioplasty implant and graft
CPT/HCPCS: 36415; 71045-TC-FY; 80048; 80053; 80061; 82010; 82550; 82803; 82962; 83036; 83690; 83880; 84478; 84484; 85027; 87635; 93005; 93010; 93306-TC; 99285-25

== ENCOUNTER 2023-05-13 16:08 | Observation (INO) | payer OTHER ==
[2023-05-13] MEDS ORDERED: ACETAMINOPHEN 1000 MG/100 ML BAG IVPB ONE (16:57)
[2023-05-13] MEDS ORDERED: ACETAMINOPHEN INJECTION 100 ML IVPB ONE (16:58)
[2023-05-13 17:12] LABS: HEMATOCRIT 28.2 % (35.4-49); HEMOGLOBIN 8.9 G/dL (11.7-16.9); MCH 24.7 pg (25.7-33.7); MCHC 31.6 g/dl (32.0-35.9); MEAN CELL VOLUME 78.1 fl (80-96); MEAN PLT VOLUME 9.6 fl (7.5-11.1); PLATELET COUNT 228.3 10^3/uL (134-434); RBC 3.61 10^6/uL (4.00-5.60); RDW 17.7 % (11.9-15.9); WHITE BLOOD COUNT 9.8 10^3/uL (4.0-10.8)
[2023-05-13] MEDS ORDERED: SODIUM CHLORIDE 1,000 ML IV STA ×2 (17:17→17:30)
[2023-05-13 17:21] LABS: INR 1.38 (0.83-1.09)
[2023-05-13 17:23] LABS: ACTIVATED PTT 29.9 SECONDS (25.2-36.5)
[2023-05-13 17:28] LABS: ALBUMIN 3.3 g/dl (3.4-5.0); BILIRUBIN,TOTAL 0.8 mg/dl (0.2-1); CALCIUM 8.4 mg/dl (8.5-10.1); CREATININE 0.8 mg/dl (0.6-1.3); POTASSIUM 4.7 mmol/L (3.5-5.1); TOT PROT 5.7 g/dl (6.4-8.2)
[2023-05-13] MEDS ORDERED: IBUPROFEN 600 MG TABLET (FP) PO ONE ×2 (17:40→17:45)
[2023-05-13 17:44] LABS: PLATELET ESTIMATE ADEQUATE
[2023-05-13 18:08] LABS: VENOUS BASE EXCESS 4.1 mmol/L (-2-2); VENOUS O2 SATURATION 30.7 % (70-80); VENOUS PCO2 50.9 mmHg (38-52); VENOUS PH 7.386 (7.310-7.410)
[2023-05-13] MEDS ORDERED: VANCOMYCIN 1,000 MG in DEXTROSE 5%-WATER - 250 ML IVPB ONE (18:10)
[2023-05-13] MEDS ORDERED: PIPERACILLIN/TAZOB 4.5 GM 4.5 GM in DEXTROSE 5%-WATER 100 ML IVPB ONE (18:10)
[2023-05-13] MEDS ORDERED: PIPERACILLIN/TAZOBACTAM 4.5 GM VIAL IVPB ONE (18:13)
[2023-05-13] MEDS ORDERED: VANCOMYCIN 1,000 MG VIAL (RESTRICTED TO ID ONLY) ONE (18:13)
[2023-05-13 19:24] LABS: LACTIC ACID 2.5 mmol/L (0.4-2.0)
[2023-05-13] MEDS ORDERED: ACETAMINOPHEN 325 MG TABLET (FP) PO PRN (20:08)
[2023-05-13] MEDS ORDERED: DOCUSATE SODIUM 100 MG CAPSULE (FP) PO PRN (20:08)
[2023-05-13] MEDS ORDERED: ACETAMINOPHEN 1000 MG/100 ML BAG IVPB PRN (20:23)
[2023-05-13] MEDS ORDERED: INSULIN (NOVOLOG) ASPART 100 UNITS/ML 10ML VIAL ONE (21:16)
[2023-05-13 21:17] LABS: CALCIUM 7.9 mg/dl (8.5-10.1); CREATININE 0.8 mg/dl (0.6-1.3); POTASSIUM 4.3 mmol/L (3.5-5.1)
[2023-05-13] MEDS: INSULIN ASPART SLIDING SCALE (NOVOLOG) 1 VIAL SQ SCH (21:17)
[2023-05-13 21:44] VITALS: BMI 38.5
[2023-05-14] MEDS ORDERED: PIPERACILLIN/TAZOB 3.375 GM 3.375 GM in DEXTROSE 5%-WATER - 50 ML IVPB ONE (01:24)
[2023-05-14] MEDS: ACETAMINOPHEN 1000 MG/100 ML BAG IVPB PRN ×2 (02:12→19:21)
[2023-05-14] MEDS ORDERED: oxyCODONE HCL 5 MG TABLET PO ONE (02:39)
[2023-05-14 03:35] LABS: POTASSIUM 3.9 mmol/L (3.5-5.1)
[2023-05-14 03:37] LABS: CALCIUM 7.7 mg/dL (8.5-10.1)
[2023-05-14 03:41] LABS: CREATININE 0.7 mg/dL (0.55-1.3)
[2023-05-14] MEDS: VANCOMYCIN PREMIX 1.75 GM 1,750 MG/350 ML PIGGYBACK IVPB SCH ×2 (05:15→21:00)
[2023-05-14] MEDS ORDERED: VANCOMYCIN PREMIX 1.75 GM 1,750 MG/350 ML PIGGYBACK IVPB SCH (06:00)
[2023-05-14] MEDS: LEVOTHYROXINE NA 100 MCG TABLET (FP) PO SCH (06:16)
[2023-05-14] MEDS: INSULIN ASPART SLIDING SCALE (NOVOLOG) 1 VIAL SQ SCH ×4 (06:17→21:40)
[2023-05-14] MEDS ORDERED: INSULIN (LEVEMIR) 100 UNITS/ML UNITS SQ SCH (07:00)
[2023-05-14 08:25] LABS: HEMATOCRIT 24.7 % (35.4-49); HEMOGLOBIN 7.8 G/dL (11.7-16.9); MCH 24.6 pg (25.7-33.7); MCHC 31.5 g/dl (32.0-35.9); MEAN CELL VOLUME 78.2 fl (80-96); MEAN PLT VOLUME 9.4 fl (7.5-11.1); PLATELET COUNT 135.2 10^3/uL (134-434); RBC 3.16 10^6/uL (4.00-5.60); RDW 17.6 % (11.9-15.9); WHITE BLOOD COUNT 5.1 10^3/uL (4.0-10.8)
[2023-05-14] MEDS ORDERED: PIPERACILLIN/TAZOB 3.375 GM 3.375 GM in DEXTROSE 5%-WATER - 50 ML IVPB SCH (09:00)
[2023-05-14] MEDS: ROSUVASTATIN CA 20 MG TABLET PO SCH (09:20)
[2023-05-14] MEDS: PANTOPRAZOLE 40 MG TABLET PO SCH (09:20)
[2023-05-14] MEDS: ASPIRIN COATED 81 MG TABLET.EC PO SCH (09:20)
[2023-05-14 09:25] LABS: CALCIUM 7.7 mg/dl (8.5-10.1); CREATININE 0.6 mg/dl (0.6-1.3); MAGNESIUM 1.7 mg/dL (1.8-2.4); PHOSPHOROUS 3.7 (2.5-4.9); POTASSIUM 3.9 mmol/L (3.5-5.1)
[2023-05-14] MEDS: PIPERACILLIN/TAZOB 3.375 GM 3.375 GM in DEXTROSE 5%-WATER - 50 ML IVPB SCH ×3 (09:48→21:40)
[2023-05-14] MEDS ORDERED: MAGNESIUM SULF 50% (8.12 MEQ/2 ML-1 GM VIAL) IVPB ONE (16:47)
[2023-05-14] MEDS: INSULIN (LEVEMIR) 100 UNITS/ML UNITS SQ SCH (21:40)
[2023-05-15] MEDS ORDERED: ACETAMINOPHEN 1000 MG/100 ML BAG IVPB PRN (01:25)
[2023-05-15] MEDS: PIPERACILLIN/TAZOB 3.375 GM 3.375 GM in DEXTROSE 5%-WATER - 50 ML IVPB SCH (03:04)
[2023-05-15] MEDS: sitaGLIPtin PHOSPHATE 50 MG TABLET PO SCH (06:50)
[2023-05-15] MEDS: INSULIN (LEVEMIR) 100 UNITS/ML UNITS SQ SCH ×2 (06:50→21:41)
[2023-05-15] MEDS: INSULIN ASPART SLIDING SCALE (NOVOLOG) 1 VIAL SQ SCH ×4 (06:51→21:41)
[2023-05-15] MEDS: LEVOTHYROXINE NA 100 MCG TABLET (FP) PO SCH (06:53)
[2023-05-15 08:22] LABS: ALBUMIN 2.8 g/dl (3.4-5.0); BILIRUBIN,TOTAL 0.6 mg/dl (0.2-1); CALCIUM 7.8 mg/dl (8.5-10.1); CREATININE 0.7 mg/dl (0.6-1.3); MAGNESIUM 1.9 mg/dL (1.8-2.4); POTASSIUM 4.1 mmol/L (3.5-5.1); TOT PROT 4.7 g/dl (6.4-8.2)
[2023-05-15] MEDS: ASPIRIN COATED 81 MG TABLET.EC PO SCH (09:03)
[2023-05-15] MEDS: PANTOPRAZOLE 40 MG TABLET PO SCH (09:03)
[2023-05-15] MEDS: ROSUVASTATIN CA 20 MG TABLET PO SCH (09:03)
[2023-05-15 09:17] LABS: EOS % 0.9 % (0-4.5); HEMATOCRIT 26.2 % (35.4-49); HEMOGLOBIN 8.3 GM/dL (11.7-16.9); LYMPH % 7.1 % (8-40); MCH 24.3 pg (25.7-33.7); MCHC 31.7 g/dl (32.0-35.9); MEAN CELL VOLUME 76.6 fl (80-96); MEAN PLT VOLUME 8.5 fl (7.5-11.1); MONO % 10.4 % (3.8-10.2); NEUT % 80.6 % (42.8-82.8); PLATELET COUNT 184 10^3/uL (134-434); RBC 3.42 M/mm3 (4.00-5.60); RDW 18.3 % (11.9-15.9); RETICULOCYTES 2.54 % (0.5-1.5); WHITE BLOOD COUNT 6.7 K/mm3 (4.0-10.0)
[2023-05-15] MEDS ORDERED: PIPERACILLIN/TAZOB 3.375 GM 3.375 GM in DEXTROSE 5%-WATER - 50 ML IVPB ONE (14:16)
[2023-05-15] MEDS ORDERED: IRON SUCROSE INJECTION 200 MG in SODIUM CHLORIDE 90 ML IVPB ONE (15:00)
[2023-05-15] MEDS: oxyCODONE HCL 5 MG TABLET PO PRN (21:42)
[2023-05-16] MEDS: PIPERACILLIN/TAZOB 4.5 GM 4.5 GM in DEXTROSE 5%-WATER 100 ML IVPB SCH ×3 (01:01→17:32)
[2023-05-16] MEDS: ACETAMINOPHEN 325 MG TABLET (FP) PO PRN ×2 (01:40→16:23)
[2023-05-16] MEDS: oxyCODONE HCL 5 MG TABLET PO PRN ×3 (03:23→21:43)
[2023-05-16] MEDS: LEVOTHYROXINE NA 100 MCG TABLET (FP) PO SCH (07:00)
[2023-05-16] MEDS: INSULIN ASPART SLIDING SCALE (NOVOLOG) 1 VIAL SQ SCH ×4 (07:00→21:42)
[2023-05-16] MEDS: sitaGLIPtin PHOSPHATE 50 MG TABLET PO SCH (07:00)
[2023-05-16] MEDS: INSULIN (LEVEMIR) 100 UNITS/ML UNITS SQ SCH ×2 (07:00→21:43)
[2023-05-16 08:27] LABS: HEMATOCRIT 25.1 % (35.4-49); HEMOGLOBIN 7.9 G/dL (11.7-16.9); MCH 24.4 pg (25.7-33.7); MCHC 31.4 g/dl (32.0-35.9); MEAN CELL VOLUME 77.7 fl (80-96); MEAN PLT VOLUME 10.1 fl (7.5-11.1); PLATELET COUNT 177.2 10^3/uL (134-434); RBC 3.23 10^6/uL (4.00-5.60); RDW 17.8 % (11.9-15.9); WHITE BLOOD COUNT 7.4 10^3/uL (4.0-10.8)
[2023-05-16 08:50] LABS: CREATININE 0.7 mg/dl (0.6-1.3); MAGNESIUM 1.8 mg/dL (1.8-2.4); POTASSIUM 4.1 mmol/L (3.5-5.1)
[2023-05-16] MEDS: PANTOPRAZOLE 40 MG TABLET PO SCH (09:48)
[2023-05-16] MEDS: ROSUVASTATIN CA 20 MG TABLET PO SCH (09:48)
[2023-05-16] MEDS: ASPIRIN COATED 81 MG TABLET.EC PO SCH (09:49)
[2023-05-16] MEDS ORDERED: IRON SUCROSE INJECTION 200 MG in SODIUM CHLORIDE 90 ML IVPB ONE (10:04)
[2023-05-17] MEDS: PIPERACILLIN/TAZOB 4.5 GM 4.5 GM in DEXTROSE 5%-WATER 100 ML IVPB SCH ×2 (01:31→09:42)
[2023-05-17] MEDS: oxyCODONE HCL 5 MG TABLET PO PRN ×2 (03:55→11:22)
[2023-05-17] MEDS: LEVOTHYROXINE NA 100 MCG TABLET (FP) PO SCH (06:18)
[2023-05-17] MEDS: INSULIN (LEVEMIR) 100 UNITS/ML UNITS SQ SCH (06:59)
[2023-05-17] MEDS: sitaGLIPtin PHOSPHATE 50 MG TABLET PO SCH (06:59)
[2023-05-17] MEDS: INSULIN ASPART SLIDING SCALE (NOVOLOG) 1 VIAL SQ SCH ×2 (07:00→11:23)
[2023-05-17 07:02] VITALS: RESP 18
[2023-05-17] MEDS: ACETAMINOPHEN 325 MG TABLET (FP) PO PRN (09:42)
[2023-05-17] MEDS: PANTOPRAZOLE 40 MG TABLET PO SCH (09:43)
[2023-05-17] MEDS: ROSUVASTATIN CA 20 MG TABLET PO SCH (09:43)
[2023-05-17] MEDS: ASPIRIN COATED 81 MG TABLET.EC PO SCH (09:43)
[2023-05-17 11:41] LABS: HEMATOCRIT 23.2 % (35.4-49); HEMOGLOBIN 7.8 GM/dL (11.7-16.9); MCH 25.9 pg (25.7-33.7); MCHC 33.6 g/dl (32.0-35.9); MEAN CELL VOLUME 77.1 fl (80-96); MEAN PLT VOLUME 8.7 fl (7.5-11.1); PLATELET COUNT 185 10^3/uL (134-434); RBC 3.01 M/mm3 (4.00-5.60); RDW 18.7 % (11.9-15.9); WHITE BLOOD COUNT 7.6 K/mm3 (4.0-10.0)
[2023-05-17 12:44] LABS: ANISOCYTOSIS 0; MACROCYTOSIS 0
[2023-05-17 14:02] VITALS: BP 98/62; PULSE 86; TEMP 97.9
== END 2023-05-17 16:26 | disposition home or self-care (01) ==
LOC: FER 16:08 → INTOOBSV 18:41 → FM/S 18:41
PROVIDERS: ADMIT Internal Medicine; ATTEND Family Medicine
PROC: 3E033NZ Introduction of Analgesics, Hypnotics, Sedatives into Peripheral Vein, Percutaneous Approach (ICD-10-PCS; principal; 2023-05-13)
PROC: 3E013VG Introduction of Insulin into Subcutaneous Tissue, Percutaneous Approach (ICD-10-PCS; 2023-05-13)
PROC: 3E033GC Introduction of Other Therapeutic Substance into Peripheral Vein, Percutaneous Approach (ICD-10-PCS; 2023-05-13)
DX: J18.9 Pneumonia, unspecified organism (principal); R91.8 Other nonspecific abnormal finding of lung field; E83.42 Hypomagnesemia; D64.9 Anemia, unspecified; I25.10 Atherosclerotic heart disease of native coronary artery without angina pectoris; I11.0 Hypertensive heart disease with heart failure; E78.5 Hyperlipidemia, unspecified; D47.Z2 Castleman disease; E11.9 Type 2 diabetes mellitus without complications; K21.9 Gastro-esophageal reflux disease without esophagitis; F41.9 Anxiety disorder, unspecified; E03.9 Hypothyroidism, unspecified; Z90.89 Acquired absence of other organs; G47.33 Obstructive sleep apnea (adult) (pediatric); Z79.82 Long term (current) use of aspirin
CPT/HCPCS: 0241U-QW; 36415; 71045-TC-FY; 71250-TC; 80048; 80053; 82010; 82728; 82803; 82962; 83540; 83550; 83605; 83735; 84100; 84439; 84443; 84466; 84484; 85025; 85027; 85045; 85610; 85730; 86850; 86900; 86901; 87040; 87633; 87899; 93005; 96361; 96365; 96367; 96372; 96375; 96376; 99285-25; G0378; J0131; J1756; J3370

== ENCOUNTER 2023-05-18 20:54 | Emergency (ER) | payer OTHER ==
[2023-05-18 21:59] VITALS: BP 97/63; PULSE 94; RESP 16; TEMP 98.9; BMI 40.7
[2023-05-18] MEDS ORDERED: IBUPROFEN 600 MG TABLET (FP) PO ONE ×3 (21:59→22:46)
== END 2023-05-19 | disposition home or self-care (01) ==
LOC: FER 20:54
DX: I80.8 Phlebitis and thrombophlebitis of other sites (principal); M79.602 Pain in left arm
CPT/HCPCS: 93971; 99284-25

== ENCOUNTER 2023-05-23 17:04 | Observation (INO) | payer OTHER ==
[2023-05-23] MEDS: SODIUM CHLORIDE IV ONE (17:48)
[2023-05-23] MEDS ORDERED: PIPERACILLIN/TAZOBACTAM 4.5 GM VIAL IVPB ONE (17:52)
[2023-05-23] MEDS: PIPERACILLIN/TAZOB 4.5 GM 4.5 GM in DEXTROSE 5%-WATER 100 ML IVPB ONE (17:59)
[2023-05-23] MEDS: ACETAMINOPHEN 1000 MG/100 ML BAG IVPB ONE (18:00)
[2023-05-23 18:08] LABS: HEMATOCRIT 25.1 % (35.4-49); HEMOGLOBIN 8.2 G/dL (11.7-16.9); MCH 24.9 pg (25.7-33.7); MCHC 32.5 g/dl (32.0-35.9); MEAN CELL VOLUME 76.5 fl (80-96); MEAN PLT VOLUME 9.6 fl (7.5-11.1); PLATELET COUNT 257.2 10^3/uL (134-434); RBC 3.28 10^6/uL (4.00-5.60); RDW 19.2 % (11.9-15.9); WHITE BLOOD COUNT 10.8 10^3/uL (4.0-10.8)
[2023-05-23 18:12] LABS: INR 1.4 (0.83-1.09); PROTHROMBIN TIME (PATIENT) 16.2 SEC (9.7-13.0)
[2023-05-23 18:15] LABS: ACTIVATED PTT 30.3 SECONDS (25.2-36.5)
[2023-05-23] MEDS ORDERED: VANCOMYCIN 1,000 MG VIAL (RESTRICTED TO ID ONLY) ONE (18:17)
[2023-05-23] MEDS ORDERED: ACETAMINOPHEN INJECTION 100 ML IVPB ONE (18:18)
[2023-05-23 18:20] LABS: ALBUMIN 3.5 g/dl (3.4-5.0); BILIRUBIN,TOTAL 0.8 mg/dl (0.2-1); CALCIUM 8.4 mg/dl (8.5-10.1); CREATININE 0.8 mg/dl (0.6-1.3); POTASSIUM 4.6 mmol/L (3.5-5.1)
[2023-05-23] MEDS: VANCOMYCIN 2,000 MG in DEXTROSE 5%-WATER - 250 ML IVPB ONE (18:37)
[2023-05-23] MEDS: VANCOMYCIN 1,000 MG in DEXTROSE 5%-WATER - 250 ML IVPB ONE (18:47)
[2023-05-23 19:02] LABS: VENOUS BASE EXCESS 0.9 mmol/L (-2-2); VENOUS O2 SATURATION 84.4 % (70-80); VENOUS PCO2 40.3 mmHg (38-52); VENOUS PH 7.418 (7.310-7.410)
[2023-05-23 19:17] LABS: ANISOCYTOSIS 2+; MACROCYTOSIS 1+
[2023-05-23] MEDS ORDERED: DOCUSATE SODIUM 100 MG CAPSULE (FP) PO PRN (20:20)
[2023-05-23 21:31] VITALS: BMI 38.7
[2023-05-23] MEDS ORDERED: guaiFENesin/D-METHORPHAN HB 10 ML UNIT-DOSE CUPS PO PRN (21:37)
[2023-05-23] MEDS: INSULIN ASPART SLIDING SCALE (NOVOLOG) 1 VIAL SQ SCH (21:38)
[2023-05-24] MEDS ORDERED: PIPERACILLIN/TAZOB 3.375 GM 3.375 GM in DEXTROSE 5%-WATER - 50 ML IVPB SCH (02:00)
[2023-05-24] MEDS: PIPERACILLIN/TAZOB 3.375 GM 3.375 GM in DEXTROSE 5%-WATER - 50 ML IVPB SCH (02:53)
[2023-05-24] MEDS ORDERED: VANCOMYCIN PREMIX 1.75 GM 1,750 MG/350 ML PIGGYBACK IVPB SCH (06:00)
[2023-05-24] MEDS: ACETAMINOPHEN 1000 MG/100 ML BAG IVPB PRN (06:13)
[2023-05-24] MEDS: VANCOMYCIN PREMIX 1.75 GM 1,750 MG/350 ML PIGGYBACK IVPB SCH (06:14)
[2023-05-24 09:59] LABS: CREATININE 0.8 mg/dl (0.6-1.3); MAGNESIUM 1.8 mg/dL (1.8-2.4); PHOSPHOROUS 3.7 (2.5-4.9); POTASSIUM 4.6 mmol/L (3.5-5.1)
[2023-05-24 11:19] LABS: BASO % 0.9 % (0-2.0); EOS % 0.3 % (0-4.5); HEMATOCRIT 23.3 % (35.4-49); HEMOGLOBIN 7.4 GM/dL (11.7-16.9); LYMPH % 6.6 % (8-40); MCH 23.8 pg (25.7-33.7); MCHC 31.9 g/dl (32.0-35.9); MEAN CELL VOLUME 74.7 fl (80-96); MEAN PLT VOLUME 7.9 fl (7.5-11.1); NEUT % 78.2 % (42.8-82.8); PLATELET COUNT 212 10^3/uL (134-434); RBC 3.12 M/mm3 (4.00-5.60); RDW 19.5 % (11.9-15.9); WHITE BLOOD COUNT 11.7 K/mm3 (4.0-10.0)
[2023-05-24] MEDS: PIPERACILLIN/TAZOB 4.5 GM 4.5 GM in DEXTROSE 5%-WATER 100 ML IVPB SCH (17:21)
[2023-05-24] MEDS: CLOPIDOGREL BISULFATE 75 MG TABLET (FP) PO SCH (17:21)
[2023-05-24] MEDS: VANCOMYCIN/WATER 1250 MG 1,250 MG/250 ML BAG IVPB SCH (17:56)
[2023-05-24] MEDS: methylPREDNISolone NA SUCC 40 MG/1 ML VIAL IVPUSH ONE (18:44)
[2023-05-24] MEDS: ROSUVASTATIN CA 20 MG TABLET PO SCH (21:25)
[2023-05-24] MEDS: INSULIN (LEVEMIR) 100 UNITS/ML UNITS SQ SCH (21:25)
[2023-05-24] MEDS: INSULIN ASPART SLIDING SCALE (NOVOLOG) 1 VIAL SQ SCH (21:26)
[2023-05-25] MEDS ORDERED: ACETAMINOPHEN 325 MG TABLET (FP) PO PRN ×2 (00:01)
[2023-05-25] MEDS: methylPREDNISolone NA SUCC 40 MG/1 ML VIAL IVPUSH SCH (03:04)
[2023-05-25] MEDS: LEVOTHYROXINE NA 150 MCG TABLET PO SCH (06:41)
[2023-05-25] MEDS: PANTOPRAZOLE 40 MG TABLET PO SCH (09:40)
[2023-05-25] MEDS: IRON SUCROSE INJECTION 200 MG in SODIUM CHLORIDE 100 ML IVPB ONE (10:45)
[2023-05-25 14:26] LABS: CALCIUM 8.5 mg/dl (8.5-10.1); CREATININE 0.8 mg/dl (0.6-1.3); POTASSIUM 4.4 mmol/L (3.5-5.1)
[2023-05-25 18:22] LABS: BASO % 0.2 % (0-2.0); HEMOGLOBIN 8.3 GM/dL (11.7-16.9); LYMPH % 6.4 % (8-40); MCH 24.1 pg (25.7-33.7); MEAN CELL VOLUME 75.4 fl (80-96); MEAN PLT VOLUME 8.7 fl (7.5-11.1); MONO % 9.5 % (3.8-10.2); NEUT % 83.9 % (42.8-82.8); PLATELET COUNT 202 10^3/uL (134-434); RBC 3.44 M/mm3 (4.00-5.60); RDW 19.9 % (11.9-15.9); WHITE BLOOD COUNT 9.2 K/mm3 (4.0-10.0)
[2023-05-25 22:04] VITALS: RESP 18
[2023-05-26] MEDS: INSULIN (LEVEMIR) 100 UNITS/ML UNITS SQ SCH (06:19)
[2023-05-26] MEDS: sitaGLIPtin PHOSPHATE 50 MG TABLET PO SCH (06:24)
[2023-05-26 06:35] VITALS: TEMP 97.3
[2023-05-26] MEDS: EMPAGLIFLOZIN (JARDIANCE) 25 MG TABLET PO SCH (09:35)
[2023-05-26] MEDS: methylPREDNISolone NA SUCC 40 MG/1 ML VIAL IVPUSH SCH (09:35)
[2023-05-26 10:10] VITALS: BP 121/68; PULSE 86
[2023-05-26 10:11] LABS: HEMATOCRIT 26.2 % (35.4-49); HEMOGLOBIN 8.2 G/dL (11.7-16.9); MCHC 31.3 g/dl (32.0-35.9); MEAN CELL VOLUME 76.6 fl (80-96); MEAN PLT VOLUME 10.1 fl (7.5-11.1); PLATELET COUNT 197.5 10^3/uL (134-434); RBC 3.42 10^6/uL (4.00-5.60); RDW 18.3 % (11.9-15.9); WHITE BLOOD COUNT 13.7 10^3/uL (4.0-10.8)
[2023-05-26] MEDS: IRON SUCROSE INJECTION 200 MG in SODIUM CHLORIDE 100 ML IVPB ONE (10:33)
[2023-05-26 10:41] LABS: BILIRUBIN,TOTAL 0.6 mg/dl (0.2-1); CALCIUM 8.5 mg/dl (8.5-10.1); CREATININE 0.7 mg/dl (0.6-1.3); POTASSIUM 4.2 mmol/L (3.5-5.1); TOT PROT 5.3 g/dl (6.4-8.2)
[2023-05-26 10:42] LABS: PLATELET ESTIMATE ADEQUATE
== END 2023-05-26 13:20 | disposition home or self-care (01) ==
LOC: FER 17:04 → FM/S 20:21 → UNDOADMOB 20:21
PROVIDERS: ADMIT Internal Medicine; ATTEND Internal Medicine
PROC: 3E033NZ Introduction of Analgesics, Hypnotics, Sedatives into Peripheral Vein, Percutaneous Approach (ICD-10-PCS; principal; 2023-05-23)
PROC: 3E013VG Introduction of Insulin into Subcutaneous Tissue, Percutaneous Approach (ICD-10-PCS; 2023-05-23)
PROC: 3E023GC Introduction of Other Therapeutic Substance into Muscle, Percutaneous Approach (ICD-10-PCS; 2023-05-23)
PROC: 3E033GC Introduction of Other Therapeutic Substance into Peripheral Vein, Percutaneous Approach (ICD-10-PCS; 2023-05-23)
PROC: 3E03329 Introduction of Other Anti-infective into Peripheral Vein, Percutaneous Approach (ICD-10-PCS; 2023-05-23)
PROC: 3E0337Z Introduction of Electrolytic and Water Balance Substance into Peripheral Vein, Percutaneous Approach (ICD-10-PCS; 2023-05-23)
PROC: 3E033NZ Introduction of Analgesics, Hypnotics, Sedatives into Peripheral Vein, Percutaneous Approach (ICD-10-PCS; 2023-05-23)
PROC: 3E013VG Introduction of Insulin into Subcutaneous Tissue, Percutaneous Approach (ICD-10-PCS; 2023-05-23)
PROC: 3E033GC Introduction of Other Therapeutic Substance into Peripheral Vein, Percutaneous Approach (ICD-10-PCS; 2023-05-23)
PROC: 3E0337Z Introduction of Electrolytic and Water Balance Substance into Peripheral Vein, Percutaneous Approach (ICD-10-PCS; 2023-05-23)
DX: J18.9 Pneumonia, unspecified organism (principal); I25.10 Atherosclerotic heart disease of native coronary artery without angina pectoris; I11.0 Hypertensive heart disease with heart failure; E78.5 Hyperlipidemia, unspecified; E11.00 Type 2 diabetes mellitus with hyperosmolarity without nonketotic hyperglycemic-hyperosmolar coma (NKHHC); D47.Z2 Castleman disease; K29.70 Gastritis, unspecified, without bleeding; K21.9 Gastro-esophageal reflux disease without esophagitis; F41.9 Anxiety disorder, unspecified; E03.9 Hypothyroidism, unspecified; G47.33 Obstructive sleep apnea (adult) (pediatric); N20.0 Calculus of kidney; Z95.5 Presence of coronary angioplasty implant and graft; G52.7 Disorders of multiple cranial nerves; E66.9 Obesity, unspecified; K76.0 Fatty (change of) liver, not elsewhere classified; Z20.822 Contact with and (suspected) exposure to COVID-19; D72.819 Decreased white blood cell count, unspecified; J06.9 Acute upper respiratory infection, unspecified; Z91.018 Allergy to other foods
CPT/HCPCS: 0241U-QW; 36415; 70450-TC; 71045-TC-FY; 71250-TC; 80048; 80053; 81003; 82010; 82550; 82803; 82962; 83036; 83605; 83735; 84100; 84443; 84484; 85025; 85027; 85610; 85730; 86850; 86900; 86901; 87040; 87086; 93005; 96361; 96365; 96366; 96367; 96372; 96375; 96376; 99285-25; G0378; J0131; J1756; J3370

== ENCOUNTER 2023-08-17 19:01 | Observation (INO) | payer OTHER ==
[2023-08-17 19:25] LABS: HEMATOCRIT 29.8 % (35.4-49); MCH 27.1 pg (25.7-33.7); MCHC 33.5 g/dl (32.0-35.9); MEAN PLT VOLUME 9.5 fl (7.5-11.1); PLATELET COUNT 184.8 10^3/uL (134-434); RBC 3.68 10^6/uL (4.00-5.60); RDW 19.3 % (11.9-15.9); WHITE BLOOD COUNT 4.7 10^3/uL (4.0-10.8)
[2023-08-17] MEDS: SODIUM CHLORIDE 1,000 ML IV ONE ×2 (19:30→20:35)
[2023-08-17] MEDS ORDERED: INSULIN REGULAR HUMAN 100 UNITS/ML *VIAL ONE (19:34)
[2023-08-17] MEDS: INSULIN REGULAR HUMAN 100 UNITS/ML *VIAL IVPUSH ONE (19:35)
[2023-08-17] MEDS ORDERED: ACETAMINOPHEN INJECTION 100 ML IVPB ONE (19:37)
[2023-08-17] MEDS: ACETAMINOPHEN 1000 MG/100 ML BAG IVPB ONE (19:41)
[2023-08-17 19:46] LABS: ALBUMIN 3.6 g/dl (3.4-5.0); BILIRUBIN,TOTAL 0.4 mg/dl (0.2-1); CALCIUM 8.4 mg/dl (8.5-10.1); CREATININE 0.9 mg/dl (0.6-1.3); POTASSIUM 4.1 mmol/L (3.5-5.1); TOT PROT 5.8 g/dl (6.4-8.2)
[2023-08-17] MEDS ORDERED: cefTRIAXone SODIUM 1 GM VIAL ONE (20:41)
[2023-08-17] MEDS: CEFTRIAXONE 1,000 MG in DEXTROSE 5%-WATER - 50 ML IVPB ONE (20:45)
[2023-08-17] MEDS ORDERED: AZITHROMYCIN 500 MG VIAL IVPB ONE (20:50)
[2023-08-17] MEDS: AZITHROMYCIN IVPB 500 MG in DEXTROSE 5%-WATER - 250 ML IVPB ONE (21:10)
[2023-08-17] MEDS ORDERED: DOCUSATE SODIUM 100 MG CAPSULE (FP) PO PRN (21:22)
[2023-08-17] MEDS: INSULIN ASPART SLIDING SCALE (NOVOLOG) 1 VIAL SQ SCH (22:50)
[2023-08-18] MEDS: ACETAMINOPHEN 1000 MG/100 ML BAG IVPB PRN (04:42)
[2023-08-18 05:32] VITALS: BMI 40.0
[2023-08-18] MEDS: LEVOTHYROXINE NA 100 MCG TABLET (FP) PO SCH (07:53)
[2023-08-18] MEDS: EMPAGLIFLOZIN (JARDIANCE) 25 MG TABLET PO SCH (07:54)
[2023-08-18 08:47] LABS: CALCIUM 8.3 mg/dl (8.5-10.1); CREATININE 0.7 mg/dl (0.6-1.3); MAGNESIUM 1.6 mg/dL (1.8-2.4); PHOSPHOROUS 3.6 (2.5-4.9); POTASSIUM 3.9 mmol/L (3.5-5.1)
[2023-08-18] MEDS: guaiFENesin/D-METHORPHAN TAB.ER.12H PO SCH (09:30)
[2023-08-18] MEDS: amLODIPine BESYLATE 5 MG TABLET (FP) PO SCH (09:30)
[2023-08-18] MEDS: PANTOPRAZOLE 40 MG TABLET PO SCH (09:30)
[2023-08-18] MEDS: INSULIN (LEVEMIR) 100 UNITS/ML UNITS SQ SCH (09:30)
[2023-08-18] MEDS: ASPIRIN COATED 81 MG TABLET.EC PO SCH (09:30)
[2023-08-18 10:15] LABS: HEMATOCRIT 30.4 % (35.4-49); MCH 26.3 pg (25.7-33.7); MCHC 32.8 g/dl (32.0-35.9); MEAN CELL VOLUME 80.2 fl (80-96); MEAN PLT VOLUME 8.3 fl (7.5-11.1); PLATELET COUNT 187 10^3/uL (134-434); RBC 3.79 M/mm3 (4.00-5.60); RDW 20.9 % (11.9-15.9); WHITE BLOOD COUNT 4.5 K/mm3 (4.0-10.0)
[2023-08-18 10:42] LABS: ANISOCYTOSIS 2+; MACROCYTOSIS 0
[2023-08-18] MEDS ORDERED: MAGNESIUM SULF 50% (8.12 MEQ/2 ML-1 GM VIAL) IVPB ONE (13:55)
[2023-08-18] MEDS: MAGNESIUM SULFATE IN WATER 2 GM/50 ML IVPB IVPB ONE (14:37)
[2023-08-18] MEDS: CEFTRIAXONE 1 GM in DEXTROSE 5%-WATER - 50 ML IVPB SCH (21:00)
[2023-08-18] MEDS: ROSUVASTATIN CA 20 MG TABLET PO SCH (21:09)
[2023-08-19 06:29] VITALS: RESP 20
[2023-08-19] MEDS: ACETAMINOPHEN 1000 MG/100 ML BAG IVPB ONE (08:25)
[2023-08-19] MEDS: oxyCODONE HCL 5 MG TABLET PO PRN (08:32)
[2023-08-19] MEDS: CLOPIDOGREL BISULFATE 75 MG TABLET (FP) PO SCH (09:50)
[2023-08-19 11:45] VITALS: BP 108/70; PULSE 92; TEMP 98.5
[2023-08-19] MEDS ORDERED: ACETAMINOPHEN 325 MG TABLET (FP) PO PRN (14:00)
== END 2023-08-19 13:47 | disposition home or self-care (01) ==
LOC: FER 19:01 → FM/S 20:44 → INTOOBSV 20:44 → FM/S 21:11
PROVIDERS: ADMIT Internal Medicine; ATTEND Family Medicine
PROC: 3E033NZ Introduction of Analgesics, Hypnotics, Sedatives into Peripheral Vein, Percutaneous Approach (ICD-10-PCS; principal; 2023-08-17)
PROC: 3E03329 Introduction of Other Anti-infective into Peripheral Vein, Percutaneous Approach (ICD-10-PCS; 2023-08-17)
PROC: 3E033VG Introduction of Insulin into Peripheral Vein, Percutaneous Approach (ICD-10-PCS; 2023-08-17)
PROC: 3E033GC Introduction of Other Therapeutic Substance into Peripheral Vein, Percutaneous Approach (ICD-10-PCS; 2023-08-17)
PROC: 3E0337Z Introduction of Electrolytic and Water Balance Substance into Peripheral Vein, Percutaneous Approach (ICD-10-PCS; 2023-08-17)
DX: E11.65 Type 2 diabetes mellitus with hyperglycemia (principal); J18.9 Pneumonia, unspecified organism; I10 Essential (primary) hypertension; I25.10 Atherosclerotic heart disease of native coronary artery without angina pectoris; E78.5 Hyperlipidemia, unspecified; F41.9 Anxiety disorder, unspecified; K21.9 Gastro-esophageal reflux disease without esophagitis; E03.9 Hypothyroidism, unspecified; D47.Z2 Castleman disease; E66.9 Obesity, unspecified; Z91.018 Allergy to other foods
CPT/HCPCS: 0241U-QW; 36415; 71045-TC-FY; 80048; 80053; 81003; 82962; 83735; 84100; 84439; 84443; 85025; 85027; 87040; 87086; 93005; 96361; 96365; 96366; 96367; 96375; 96376; 99285-25; G0378; J0131

== ENCOUNTER 2023-09-23 01:58 | Emergency (ER) | payer OTHER ==
[2023-09-23 02:31] VITALS: BP 150/91; PULSE 82; RESP 16; TEMP 99.6; BMI 39.4
[2023-09-23] MEDS ORDERED: ALBUTEROL SO4 2.5/IPRATROPIUM 0.5 INH SOL 3 ML VIAL.NEB. NEB ONE (02:44)
[2023-09-23] MEDS: ALBUTEROL SO4 2.5/IPRATROPIUM 0.5 INH SOL 3 ML VIAL.NEB. NEB ONE (02:47)
[2023-09-23 03:11] LABS: BASO % 0.7 % (0-2.0); EOS % 1.1 % (0-4.5); HEMATOCRIT 34.9 % (35.4-49); LYMPH % 22.4 % (8-40); MCH 28.5 pg (25.7-33.7); MCHC 34.4 g/dl (32.0-35.9); MEAN CELL VOLUME 82.9 fl (80-96); MEAN PLT VOLUME 8.1 fl (7.5-11.1); MONO % 12.1 % (3.8-10.2); NEUT % 63.7 % (42.8-82.8); PLATELET COUNT 144 10^3/uL (134-434); RBC 4.21 M/mm3 (4.00-5.60); RDW 19.3 % (11.9-15.9); WHITE BLOOD COUNT 4.1 K/mm3 (4.0-10.0)
[2023-09-23 03:29] LABS: POTASSIUM 3.6 mmol/L (3.5-5.1)
[2023-09-23 03:31] LABS: CALCIUM 8.6 mg/dL (8.5-10.1)
[2023-09-23 03:32] LABS: ALBUMIN 3.6 g/dl (3.4-5.0); BLOOD UREA NITROGEN 10.7 mg/dL (7-18)
[2023-09-23 03:35] LABS: CREATININE 0.8 mg/dL (0.55-1.3)
[2023-09-23 03:36] LABS: BILIRUBIN,TOTAL 0.4 mg/dL (0.2-1); TOT PROT 6.7 g/dl (6.4-8.2)
[2023-09-23] MEDS ORDERED: AZITHROMYCIN 500 MG TABLET ONE (03:47)
[2023-09-23] MEDS: AZITHROMYCIN 500 MG TABLET PO ONE (03:57)
== END 2023-09-23 03:57 | disposition home or self-care (01) ==
LOC: FER 01:58
PROC: 3E0F7GC Introduction of Other Therapeutic Substance into Respiratory Tract, Via Natural or Artificial Opening (ICD-10-PCS; principal; 2023-09-23)
DX: J10.1 Influenza due to other identified influenza virus with other respiratory manifestations (principal); J40 Bronchitis, not specified as acute or chronic; R09.81 Nasal congestion; R05.9 Cough, unspecified; R53.1 Weakness; R06.2 Wheezing; Z20.822 Contact with and (suspected) exposure to COVID-19
CPT/HCPCS: 0241U-QW; 36415; 71046-TC-FY; 80053; 83605; 83880; 85025; 99284-25

== ENCOUNTER 2023-09-23 22:58 | Emergency (ER) | payer OTHER ==
[2023-09-23 23:11] VITALS: BP 119/63; PULSE 85; RESP 18; TEMP 98.8; BMI 39.5
[2023-09-23] MEDS ORDERED: ALBUTEROL SO4 HFA INHALER IH ONE (23:17)
[2023-09-23] MEDS: ALBUTEROL SO4 HFA INHALER IH ONE (23:21)
== END 2023-09-23 23:37 | disposition home or self-care (01) ==
LOC: FER 22:58
DX: J11.1 Influenza due to unidentified influenza virus with other respiratory manifestations (principal); R05.9 Cough, unspecified; R06.2 Wheezing
CPT/HCPCS: 99283-25

== ENCOUNTER 2023-10-25 23:21 | Emergency (ER) | payer OTHER ==
[2023-10-25 23:31] VITALS: RESP 16; TEMP 97.8; BMI 43.0
[2023-10-26 00:33] VITALS: BP 131/91; PULSE 72
[2023-10-26] MEDS ORDERED: ACETAMINOPHEN 325 MG TABLET (FP) ONE (00:34)
[2023-10-26] MEDS: ACETAMINOPHEN 325 MG TABLET (FP) PO ONE (00:36)
== END 2023-10-26 00:42 | disposition home or self-care (01) ==
LOC: FER 23:21
DX: R51.9 Headache, unspecified (principal)
CPT/HCPCS: 99283-25

== ENCOUNTER 2024-04-08 13:51 | Inpatient (IN) | payer OTHER ==
[2024-04-08 15:14] LABS: HEMATOCRIT 44.1 % (35.4-49); HEMOGLOBIN 14.8 G/dL (11.7-16.9); MCH 28.5 pg (25.7-33.7); MCHC 33.4 g/dl (32.0-35.9); MEAN CELL VOLUME 85.3 fl (80-96); PLATELET COUNT 160.4 10^3/uL (134-434); RBC 5.17 10^6/uL (4.00-5.60); RDW 14.9 % (11.9-15.9)
[2024-04-08 15:18] LABS: PLATELET ESTIMATE ADEQUATE
[2024-04-08 15:25] LABS: ALBUMIN 4.4 g/dl (3.4-5.0); BILIRUBIN,TOTAL 0.7 mg/dl (0.2-1); CALCIUM 9.3 mg/dl (8.5-10.1); CREATININE 1.1 mg/dl (0.6-1.3); MAGNESIUM 1.7 mg/dL (1.8-2.4); POTASSIUM 4.2 mmol/L (3.5-5.1); TOT PROT 7.3 g/dl (6.4-8.2)
[2024-04-08] MEDS: INSULIN (NOVOLOG) ASPART 100 UNITS/ML 10ML VIAL SQ ONE (15:30)
[2024-04-08] MEDS ORDERED: INSULIN (NOVOLOG) ASPART 100 UNITS/ML 10ML VIAL ONE ×2 (15:32→21:24)
[2024-04-08] MEDS: SODIUM CHLORIDE 0.9% 1000 ML INFUS.BAG IV ONE (15:42)
[2024-04-08 15:46] LABS: INR 0.96 (0.83-1.09)
[2024-04-08 15:49] LABS: ACTIVATED PTT 31.3 SECONDS (25.2-36.5)
[2024-04-08] MEDS ORDERED: PANTOPRAZOLE SODIUM 40 MG VIAL ONE (21:08)
[2024-04-08] MEDS: PANTOPRAZOLE SODIUM 40 MG VIAL IVPUSH SCH (21:21)
[2024-04-08] MEDS: INSULIN ASPART SLIDING SCALE (NOVOLOG) 1 VIAL SQ SCH (21:32)
[2024-04-08 23:55] VITALS: BMI 45.3
[2024-04-09 08:37] LABS: HEMATOCRIT 42.4 % (35.4-49); MCH 28.2 pg (25.7-33.7); MEAN CELL VOLUME 85.4 fl (80-96); MEAN PLT VOLUME 10.1 fl (7.5-11.1); PLATELET COUNT 148.8 10^3/uL (134-434); RBC 4.97 10^6/uL (4.00-5.60); RDW 14.7 % (11.9-15.9); WHITE BLOOD COUNT 6.3 10^3/uL (4.0-10.8)
[2024-04-09 09:33] LABS: BILIRUBIN,TOTAL 0.5 mg/dl (0.2-1); CALCIUM 9.3 mg/dl (8.5-10.1); CREATININE 1.1 mg/dl (0.6-1.3); MAGNESIUM 1.8 mg/dL (1.8-2.4); PHOSPHOROUS 4.4 (2.5-4.9); POTASSIUM 4.4 mmol/L (3.5-5.1); TOT PROT 6.8 g/dl (6.4-8.2)
[2024-04-09] MEDS ORDERED: ALBUTEROL SO4 HFA INHALER IH PRN (11:28)
[2024-04-09] MEDS: INSULIN (LEVEMIR) 100 UNITS/ML UNITS SQ SCH (12:30)
[2024-04-09] MEDS: ATORVASTATIN CA 40 MG TABLET (FP) PO SCH (21:33)
[2024-04-10] MEDS: LEVOTHYROXINE NA 200 MCG TABLET PO SCH (06:35)
[2024-04-10 10:24] LABS: BASO % 0.7 % (0-2.0); EOS % 1.1 % (0-4.5); HEMATOCRIT 39.5 % (35.4-49); HEMOGLOBIN 13.1 GM/dL (11.7-16.9); LYMPH % 16.3 % (8-40); MCH 28.1 pg (25.7-33.7); MCHC 33.1 g/dl (32.0-35.9); MEAN CELL VOLUME 84.9 fl (80-96); MEAN PLT VOLUME 8.9 fl (7.5-11.1); MONO % 5.4 % (3.8-10.2); NEUT % 76.5 % (42.8-82.8); PLATELET COUNT 154 10^3/uL (134-434); RBC 4.65 M/mm3 (4.00-5.60); RDW 14.9 % (11.9-15.9); WHITE BLOOD COUNT 6.2 K/mm3 (4.0-10.0)
[2024-04-10] MEDS: INSULIN (LEVEMIR) 100 UNITS/ML UNITS SQ SCH (10:50)
[2024-04-10] MEDS ORDERED: INSULIN (LEVEMIR) 100 UNITS/ML UNITS SQ ONE (18:07)
[2024-04-10] MEDS: ACETAMINOPHEN 1000 MG/100 ML BAG IVPB ONE (23:36)
[2024-04-10] MEDS: MELATONIN 5 MG TABLETS PO PRN (23:36)
[2024-04-11] MEDS: oxyCODONE HCL 5 MG TABLET PO ONE (02:34)
[2024-04-11] MEDS: LEVOTHYROXINE NA 150 MCG TABLET PO SCH (06:20)
[2024-04-11 09:29] VITALS: BP 149/80; PULSE 74; RESP 20; TEMP 98.3
== END 2024-04-11 18:16 | disposition home or self-care (01) | DRG 144 ==
LOC: FER 13:51 → FM/S 21:21 → J8W 04-09 23:32
PROVIDERS: ADMIT Internal Medicine; ATTEND Family Medicine
DX: R04.2 Hemoptysis (principal); I10 Essential (primary) hypertension; I25.10 Atherosclerotic heart disease of native coronary artery without angina pectoris; E78.5 Hyperlipidemia, unspecified; E11.9 Type 2 diabetes mellitus without complications; K21.9 Gastro-esophageal reflux disease without esophagitis; E03.9 Hypothyroidism, unspecified; D47.Z2 Castleman disease; D64.9 Anemia, unspecified; E11.65 Type 2 diabetes mellitus with hyperglycemia; E66.01 Morbid (severe) obesity due to excess calories; Z68.42 Body mass index [BMI] 45.0-49.9, adult; G47.33 Obstructive sleep apnea (adult) (pediatric); R09.A2 Foreign body sensation, throat
CPT/HCPCS: 0241U-QW; 36415; 71275-TC; 80053; 82272; 82962; 83036; 83735; 84100; 85025; 85027; 85610; 85730; 93005; 99285-25; J0131; Q9967

== ENCOUNTER 2024-09-03 16:34 | Emergency (ER) | payer OTHER ==
[2024-09-03 17:40] VITALS: BP 140/85; PULSE 91; RESP 18; TEMP 98.4; BMI 45.9
[2024-09-03 18:14] LABS: ABSOLUTE IMMATURE GRANULOCYTES 0.08 x10^3/uL (0.0-0.031); BASOPHILS # 0.04 x10^3/uL (0.01-0.08); EOSINOPHIL % 1.2 % (0.8-7.0); EOSINOPHILS # 0.07 x10^3/uL (0.04-0.54); HEMATOCRIT 40.1 % (40.1-51.0); HEMOGLOBIN 13.7 g/dL (13.7-17.5); MCHC 34.2 g/dl (32.3-36.5); MEAN CELL VOLUME 85.5 fl (79.0-92.2); MONOCYTE # 0.36 x10^3/uL (0.30-0.82); MONOCYTE % 6.1 % (5.3-12.2); PLATELET COUNT 147 x10^3/uL (163-337)
[2024-09-03 18:26] LABS: INR 1.05 (0.83-1.09); PROTHROMBIN TIME (PATIENT) 11.6 SEC (9.7-13.0)
[2024-09-03 18:29] LABS: ACTIVATED PTT 29.7 SECONDS (25.2-36.5)
[2024-09-03 18:37] LABS: BILIRUBIN,TOTAL 0.7 mg/dl (0.2-1); CALCIUM 8.8 mg/dl (8.5-10.1); POTASSIUM 3.8 mmol/L (3.5-5.1); TOT PROT 6.4 g/dl (6.4-8.2)
[2024-09-03 19:49] LABS: HIV INTERPRETATION NEGATIVE (NEGATIVE)
[2024-09-03 19:50] LABS: HCV DIAGNOSTIC IN-HOUSE W/RFLX NON-REACTIVE (NONREACTIVE)
== END 2024-09-03 21:32 | disposition home or self-care (01) ==
LOC: FER 16:34
DX: R06.02 Shortness of breath (principal)
CPT/HCPCS: 0241U-QW; 36415; 71045-TC-FY; 71275-TC; 80053; 84484; 85025; 85379; 85610; 85730; 86803; 87389; 93005; 99285-25; Q9967

== ENCOUNTER 2025-02-09 01:09 | Observation (INO) | payer OTHER ==
[2025-02-09 01:17] VITALS: RESP 18
[2025-02-09 03:14] LABS: ABSOLUTE IMMATURE GRANULOCYTES 0.09 x10^3/uL (0.0-0.031); BASOPHILS # 0.05 x10^3/uL (0.01-0.08); EOSINOPHIL % 1.2 % (0.8-7.0); EOSINOPHILS # 0.09 x10^3/uL (0.04-0.54); MCHC 32.5 g/dl (32.3-36.5); MEAN CELL VOLUME 87.6 fl (79.0-92.2); MEAN PLT VOLUME 11.0 fl (9.4-12.4); MONOCYTE # 0.52 x10^3/uL (0.30-0.82); MONOCYTE % 7.1 % (5.3-12.2); RDW 15.4 % (12.2-16.1)
[2025-02-09 03:22] LABS: INR 1.05 (0.83-1.09); PROTHROMBIN TIME (PATIENT) 11.6 SEC (9.7-13.0)
[2025-02-09 03:25] LABS: ACTIVATED PTT 25.2 SECONDS (25.2-36.5)
[2025-02-09 03:36] LABS: GLUCOSE,RANDOM 200.0 mg/dL (74-106)
[2025-02-09 03:37] LABS: CO2 24.0 mmol/L (21-32); TOT PROT 7.8 g/dl (6.4-8.2)
[2025-02-09 03:39] LABS: ALK PHOS 69.0 U/L (40-150)
[2025-02-09 03:42] LABS: CREATININE 0.81 mg/dL (0.55-1.3); SGOT/AST 50.0 U/L (5-34); SGPT/ALT 32.0 U/L (0-55)
[2025-02-09] MEDS ORDERED: ACETAMINOPHEN 500 MG TABLET (FP) ONE (05:25)
[2025-02-09] MEDS: ACETAMINOPHEN 500 MG TABLET (FP) PO ONE (06:07)
[2025-02-09] MEDS ORDERED: LEVOTHYROXINE NA 100 MCG TABLET (FP) ONE (07:48)
[2025-02-09] MEDS ORDERED: LISINOPRIL 20 MG TABLET ONE (07:48)
[2025-02-09] MEDS ORDERED: LEVOTHYROXINE NA 50 MCG TABLET (FP) ONE (07:49)
[2025-02-09] MEDS: INSULIN ASPART SLIDING SCALE (NOVOLOG) 1 VIAL SQ SCH (08:01)
[2025-02-09] MEDS: LISINOPRIL 20 MG TABLET PO ONE (08:02)
[2025-02-09] MEDS: LEVOTHYROXINE NA 125 MCG TABLET (FP) PO SCH (08:02)
[2025-02-09 08:53] LABS: GLUCOSE,RANDOM 197.0 mg/dL (74-106)
[2025-02-09 08:54] LABS: TOT PROT 7.1 g/dl (6.4-8.2)
[2025-02-09 08:55] LABS: CO2 26.0 mmol/L (21-32)
[2025-02-09 08:56] LABS: ALK PHOS 68.0 U/L (40-150)
[2025-02-09 08:59] LABS: CREATININE 0.84 mg/dL (0.55-1.3); SGOT/AST 34.0 U/L (5-34); SGPT/ALT 32.0 U/L (0-55)
[2025-02-09 09:12] LABS: ABSOLUTE IMMATURE GRANULOCYTES 0.08 x10^3/uL (0.0-0.031); BASOPHILS # 0.05 x10^3/uL (0.01-0.08); EOSINOPHIL % 1.4 % (0.8-7.0); EOSINOPHILS # 0.11 x10^3/uL (0.04-0.54); MCHC 32.1 g/dl (32.3-36.5); MEAN CELL VOLUME 85.5 fl (79.0-92.2); MEAN PLT VOLUME 11.2 fl (9.4-12.4); MONOCYTE # 0.46 x10^3/uL (0.30-0.82); MONOCYTE % 5.7 % (5.3-12.2); RDW 15.3 % (12.2-16.1)
[2025-02-09] MEDS ORDERED: HYDROCHLOROTHIAZIDE 25 MG TABLET (FP) ONE (09:46)
[2025-02-09] MEDS ORDERED: ASPIRIN COATED 81 MG TABLET.EC ONE (09:46)
[2025-02-09] MEDS ORDERED: ENOXAPARIN NA (PORCINE) 40 MG/0.4 ML DISP.SYRIN SQ ONE (09:46)
[2025-02-09] MEDS: ASPIRIN COATED 81 MG TABLET.EC PO SCH (09:50)
[2025-02-09] MEDS: ENOXAPARIN NA (PORCINE) 40 MG/0.4 ML DISP.SYRIN SQ SCH (09:50)
[2025-02-09] MEDS: HYDROCHLOROTHIAZIDE 25 MG TABLET (FP) PO SCH (09:50)
[2025-02-09] MEDS ORDERED: LISINOPRIL 20 MG TABLET PO SCH (10:00)
[2025-02-09] MEDS ORDERED: PATIENT'S OWN MEDICATION (NON-FORMULARY) (Lisinopril/Hydrochlorothiazide [Lisinopril-Hctz PO SCH (10:00)
[2025-02-09] MEDS: EMPAGLIFLOZIN (JARDIANCE) 25 MG TABLET PO SCH (11:51)
[2025-02-09 12:46] VITALS: BMI 44.6
[2025-02-09 15:33] VITALS: BP 132/105; PULSE 71; TEMP 98.5
[2025-02-09] MEDS ORDERED: ATORVASTATIN CA 40 MG TABLET (FP) PO SCH (22:00)
[2025-02-10] MEDS ORDERED: LISINOPRIL 20 MG TABLET PO SCH (10:00)
== END 2025-02-09 16:13 | disposition home or self-care (01) ==
LOC: JER 01:09 → JERBED 04:27 → J4W 11:58
PROVIDERS: ADMIT Student in an Organized Health Care Education/Training Program; ATTEND Internal Medicine
DX: R04.0 Epistaxis (principal); I10 Essential (primary) hypertension; I25.10 Atherosclerotic heart disease of native coronary artery without angina pectoris; E78.5 Hyperlipidemia, unspecified; K21.9 Gastro-esophageal reflux disease without esophagitis; D47.Z2 Castleman disease; E11.9 Type 2 diabetes mellitus without complications; C85.9A Non-Hodgkin lymphoma, unspecified, in remission
CPT/HCPCS: 36415; 71045-TC-FY; 80053; 82962; 83735; 84439; 84443; 84484; 85025; 85610; 85730; 93005; 93010; 99285-25; G0378